=== PATIENT | female | born 1965 | race Caucasian/White ===

== ENCOUNTER 2016-07-26 09:20 | Outpatient (RCR) | payer BC ==
--- OUTSIDE RECORDS SUMMARY | 2016-07-19 09:12 | XMS REPORT | Continuity of Care Document ---
Author Author [facility] Organization [facility] Address Unknown Phone Unavailable Care Team Providers Care Hat Band Attacher Name Role Phone Whitney Tavares PCP [phone] Source Comments Some departments are not documenting in the electronic medical record. If you do not see the information that you expected, contact Release of Information in the Health Information Management department at [phone] for further assistance in locating additional records.[facility] Active Allergies and Adverse Reactions Allergen Noted Date Severity Reactions Comments Hydrocodone 08/19/2011 HIVES, ITCHING Pcn 08/19/2011 HIVES Current Medications Prescription Sig. Disp. Refills Start End Date Status Date amphetamine-dextroampheta Take 30 mg by mouth twice Active mine XR(+) (ADDERALL XR) daily. 30 mg capsule lamoTRIgine (LAMICTAL) Take 200 mg by mouth Active 200 mg tablet twice daily. ERGOCALCIFEROL (VITAMIN Take 300 mg by mouth Active D2) (VITAMIN D PO) daily. oxyCODONE (ROXICODONE) 5 Take 1-3 Tabs by mouth 120 Tab 0 08/24/19 Active mg tablet every 3 hours as needed 12 for Pain. oxyCODONE SR (OXYCONTIN) Take 1 Tab by mouth twice 30 Tab 0 08/24/19 Active 10 mg tablet daily. 12 docusate (COLACE) 100 mg Take 1 Cap by mouth twice 40 Cap 1 08/24/19 Active capsule daily as needed for 12 Constipation. Active Problems Not on file Social History Tobacco Use Types Packs/Day Years Used Date Never Smoker Smokeless Tobacco: Never Used Alcohol Use Drinks/Week oz/Week Comments Yes 3 Shots of 1.8 liquor Last Filed Vital Signs Vital Sign Reading Time Taken Blood Pressure 103/64 08/24/2011 12:08 PM FRAMING MILL OPERATOR HELPER Pulse 97 08/24/2011 12:08 PM FRAMING MILL OPERATOR HELPER Temperature 37.1 C (98.7 F) 08/24/2011 12:08 PM FRAMING MILL OPERATOR HELPER Respiratory Rate - - Height 1.651 m (5' 5") 08/19/2011 1:01 PM FRAMING MILL OPERATOR HELPER Weight 62.143 kg (137 lb) 08/19/2011 1:01 PM FRAMING MILL OPERATOR HELPER Body Mass Index 22.8 08/19/2011 1:01 PM FRAMING MILL OPERATOR HELPER Oxygen Saturation 99% 08/24/2011 12:08 PM FRAMING MILL OPERATOR HELPER Plan of Care Health Maintenance Due Date Last Done Comments Physical (Comprehensive) 1972 Exam Pertussis Vaccine 1976 Tetanus Vaccine 1982 Cervical Cancer Screening 1986 Breast Cancer Screening 2005 Colorectal Cancer 2015 Screening Influenza Vaccine 02/26/2016 Results from Last 3 Months Not on file
--- OUTSIDE RECORDS SUMMARY | 2016-07-19 10:53 | XMS REPORT | Continuity of Care Document ---
Author Author [facility] Organization [facility] Address Unknown Phone Unavailable Care Team Providers Care Tar Chaser Name Role Phone Whitney Tavares PCP [phone] Source Comments Some departments are not documenting in the electronic medical record. If you do not see the information that you expected, contact Release of Information in the Health Information Management department at [phone] for further assistance in locating additional records.[facility] Active Allergies and Adverse Reactions Allergen Noted [...] Taken Blood Pressure 103/64 08/24/2011 12:08 PM FREIGHT SEPARATOR Pulse 97 08/24/2011 12:08 PM FREIGHT SEPARATOR Temperature 37.1 C (98.7 F) 08/24/2011 12:08 PM FREIGHT SEPARATOR Respiratory Rate - - Height 1.651 m (5' 5") 08/19/2011 1:01 PM FREIGHT SEPARATOR Weight 62.143 kg (137 lb) 08/19/2011 1:01 PM FREIGHT SEPARATOR Body Mass Index 22.8 08/19/2011 1:01 PM FREIGHT SEPARATOR Oxygen Saturation 99% 08/24/2011 12:08 PM FREIGHT SEPARATOR Plan of Care Health Maintenance Due Date Last Done Comments Physical (Comprehensive) 1972 Exam Pertussis Vaccine 1976 Tetanus Vaccine 1982 Cervical Cancer Screening 1986 Breast Cancer Screening 2005 Colorectal Cancer 2015 Screening Influenza Vaccine 02/26/2016 Results from Last 3 Months Not on file
[2016-07-20 07:52] LABS: URINE VOLUME REF RANDOM ML
[2016-07-23 07:48] LABS: 5 HIAA SEROTONIN URINE MG/L 4.9 MG/L; 5HIAA CREATININE 49 MG/DL
[2016-07-23 07:49] LABS: 5 HIAA SEROTONIN URINE RATIO 10 mg/gCR (0-14); 5 HIAA URINE INTERPRETATION SEE FOOTNOTE
[~2016-07-26 09:20] MED LIST: AMPH30TA2 PO; ASPI1TAB PO; CALC-823 PO; CEPH500C PO; CHOL10003 PO; CYAN100021 PO; ENXP40I.4 SQ; ESZO3TAB3 PO; HYDR-229 PO; HYDR1TAB PO; LAMO200T2 PO; LEVO75TA6 PO; LIRA0.6P3; NYST1000 PO; ONDA4TAB8 SL; OXC10TCR PO; OXYC-12 PO; OXYC-197 PO; PRAM1TAB3 PO; VITAMIN B12 IM
== END 2016-10-17 | disposition home or self-care (01) ==
LOC: LAB 09:20
PROVIDERS: ATTEND Nurse Practitioner Family
DX: K58.9 Irritable bowel syndrome, unspecified (principal); R50.9 Fever, unspecified; Z79.899 Other long term (current) drug therapy
CPT/HCPCS: 82274; 83497; 87045; 87046; 87177; 87449

== ENCOUNTER 2017-03-05 14:39 | Emergency (ER) | payer BC ==
[~2017-03-05] VITALS: Ht 165.1 cm; Wt 59.0 kg
--- OUTSIDE RECORDS SUMMARY | 2017-03-05 14:54 | XMS REPORT | Clinical Summary ---
Author Author [facility] Organization [facility] Address Unknown Phone Unavailable Care Team Providers Care Line Ordering Clinician Name Role Phone PCP Unavailable Source Comments Some departments are not documenting in the electronic medical record. If you do not see the information that you expected, contact Release of Information in the Health Information Management department at [phone] for further assistance in locating additional records.[facility] Allergies Active Allergy Reactions Severity Noted Date Comments Hydrocodone HIVES, ITCHING 08/19/2011 Penicillins HIVES 08/19/2011 Current Medications Prescription Sig. Disp. Refills Start [...] Comments Yes 3 Shots of 1.8 liquor Sex Assigned at Date Recorded Not on file Last Filed Vital Signs Vital Sign Reading Time Taken Blood Pressure 103/64 08/24/2011 12:08 PM SHOE CLERK Pulse 97 08/24/2011 12:08 PM SHOE CLERK Temperature 37.1 C (98.7 F) 08/24/2011 12:08 PM SHOE CLERK Respiratory Rate - - Oxygen Saturation 99% 08/24/2011 12:08 PM SHOE CLERK Inhaled Oxygen - - Concentration Weight 62.1 kg (137 lb) 08/19/2011 1:01 PM SHOE CLERK Height 165.1 cm (5' 5") 08/19/2011 1:01 PM SHOE CLERK Body Mass Index 22.8 08/19/2011 1:01 PM SHOE CLERK Plan of Treatment Health Maintenance Due Date Last Done Comments HEPATITIS C SCREENING 1965 PHYSICAL (COMPREHENSIVE) 1972 EXAM PERTUSSIS VACCINE 1976 TETANUS VACCINE 1982 CERVICAL CANCER SCREENING 1995 BREAST CANCER SCREENING 2005 COLORECTAL CANCER 2015 SCREENING INFLUENZA VACCINE 02/25/2017 Results Not on filefrom Last 3 Months
--- OUTSIDE RECORDS SUMMARY | 2017-03-05 14:55 | XMS REPORT | Clinical Summary ---
Author Author User, [employer] Organization [facility] [place] Address Unknown Phone Unavailable Allergies, Adverse Reactions, Alerts Allergy Name Reaction Description Start Date Severity Status Provider HYDROCODONE Developed hives and swelling Moderate Active Whitney Tavares PENICILLIN Critical Active Whitney Tavares Conditions or Problems Problem Name Problem Code Onset Date Status Entry Date Provider Comment Standard Description Annotate ANEMIA, VITAMIN B12 DEFICIENCY NEC 281.1 Resolved Whitney Tavares Other vitamin B12 deficiency anemia ANEMIA NOS 285.9 Refinement Whitney Tavares Anemia, unspecified ANEMIA, IRON DEFICIENCY NEC 280.8 Active Whitney Tavares Other specified iron deficiency anemias HYPOTHYROIDISM, PRIMARY 244.9 Active Whitney Tavares Unspecified hypothyroidism HEALTH SCREENING V70.0 Resolved Whitney Tavares Routine general medical examination at a health care facility OSTEOPENIA 733.90 Resolved Whitney Tavaers Disorder of bone and cartilage, unspecified SYNCOPE 780.2 Resolved Whitney Tavares Syncope and collapse SHOULDER PAIN 719.41 Resolved Whitney Tavares Pain in joint involving shoulder region KNEE PAIN, RIGHT 719.46 Resolved Whitney Tavares Pain in joint involving lower leg PALPITATIONS, OCCASIONAL 785.1 Resolved Whitney Tavares Palpitations PREMATURE VENTRICULAR CONTRACTIONS, FREQUENT 427.69 Resolved Whitney Tavares Other premature beats SYMPTOM, SHORTNESS OF BREATH 786.05 Resolved Whitney Tavares Shortness of breath DERMATITIS, CONTACT, NOS 692.9 Resolved Whitney Tavares Contact dermatitis and other eczema, unspecified cause URINARY FREQUENCY 788.41 Resolved Whitney Tavares Urinary frequency THROMBOCYTOPENIA 287.5 Active Whtiney Tavares Thrombocytopenia, unspecified ANEMIA 285.9 Active Whitney Tavares Anemia , unspecified DEEP VENOUS THROMBOPHLEBITIS, HX OF V12.52 Resolved Whitney Tavares Personal history of thrombophlebitis LIVER FUNCTION TESTS, ABNORMAL 794.8 Active Whitney Tavares Nonspecific abnormal results of function study of liver FOOT PAIN, LEFT 729.5 Resolved Whitney Tavares Pain in limb VITAMIN B12 DEFICIENCY 266.2 Active Whitney Tavares Other B-complex deficiencies UNSPECIFIED VITAMIN D DEFICIENCY 268.9 Active Whitney Tavares Unspecified vitamin D deficiency HEALTH SCREENING V70.0 Resolved Whitney Tavares Routine general medical examination at a health care facility HEALTH SCREENING V70.0 Active Whitney Tavares Routine general medical examination at a health care facility EDEMA LEG 782.3 Active Whitney Tavares Edema Medication List Medication Instructions Start Date Stop Date Generic Name NDC Status Provider Patient Instruction TRANSDERM-SCOP 1.5 MG PT72 1 patch behind ear and change every 3 days SCOPOLAMINE BASE 08717368092 No Longer Active Whitney Tavares LASIX 20 MG TAB 1 PO daily prn swelling FUROSEMIDE 26719032234 Active Whitney Tavares CIPRO 500 MG TAB 1 PO BID for 7 days CIPROFLOXACIN HCL 99375793106 No Longer Active Whitneymariam Tavares CYANOCOBALAMIN 1000 MCG/ML SOLN Inject 1 cc weekly CYANOCOBALAMIN 09765401880 Active Mabel Adame LUNESTA 3 MG TABS 1 po at HS prn ESZOPICLONE 92569200884 No Longer Active Whitney Dodie Tavares CYANOCOBALAMIN 1000 MCG/ML SOLN 1cc injection once a month 02/22 CYANOCOBALAMIN 10165121525 No Longer Active Whitneymariam Tavares LORTAB 5 5-500 MG TABS 1 to 2 PO Q6hrs prn ACETAMINOPHEN- HYDROCODONE 15219134606 No Longer Active Whitney Tavares BD INSULIN SYRINGE MICROFINE 28G X 1/2" 0.3 ML MISC INSULIN SYRINGE-NEEDLE U-100 46776099897 No Longer Active Whitneymariam Tavares CALTRATE 600 PLUS-VIT D 600-200 MG-IU TABS 1 PO QD CALCIUM-VITAMIN D 29007193224 No Longer Active Whitney Tavares VITAMIN D (ERGOCALCIFEROL) 34116 UNIT CAPS 1 PO Weekly ERGOCALCIFEROL 28746741802 Active Mabel Adame TRANSDERM-SCOP 1.5 MG PT72 1 patch behind ear and change every 3 days SCOPOLAMINE BASE 07747210961 No Longer Active Angle Bridges LOVENOX 40 MG/0.4ML SOLN 1 INJECTION SQ DAILY ENOXAPARIN SODIUM 17292217880 No Longer Active Whitney Tavares OXYCONTIN 20 MG AZ53H-ODP 1 PO Q12 hrs OXYCODONE HCL 48897504300 No Longer Active Whitneymariam Tavares OXYCODONE HCL 20 MG TABS 1 PO Q 4 HRS PRN OXYCODONE HCL 35298781295 No Longer Active Whitneymariam Tavares ZOFRAN ODT 8 MG TBDP 1 PO Q6hrs prn nausea ONDANSETRON 60423711614 No Longer Active Whitney Tavares VALTREX 1 GM TABS 1 po BID for 3 days at onset of cold sore VALACYCLOVIR HCL 98219853308 Active Whitney Tavares VITAMIN D 1000 UNIT TABS 3 PO Daily CHOLECALCIFEROL 28786198455 No Longer Active Whitney Tavares PYRIDIUM 200 MG TAB 1 PO TID prn urinary urgency PHENAZOPYRIDINE HCL 99494122908 No Longer Active Felix Wheeler LEVAQUIN 500 MG TAB 1 PO QD LEVOFLOXACIN 37437015709 No Longer Active Felix Wheeler KENALOG 0.1 % CREA apply to affected areas BID TRIAMCINOLONE ACETONIDE 54367238526 No Longer Active Whitney Tavares FOLIC ACID 1 MG TAB 1 po daily FOLIC ACID 97740246655 Active Whitney Tavares SYNTHROID 150 MCG TABS 1 po daily LEVOTHYROXINE SODIUM 78810242016 No Longer Active Whitney Tavares ZOVIRAX 5 % CREA apply to affected area TID ACYCLOVIR 43280311157 No Longer Active Whitney Tavares VIACTIV 500-100-40 CHEW 1 PO BID CALCIUM-VITAMIN D- VITAMIN K 34549351357 No Longer Active Whitney Tavares MIRAPEX 1 MG TABS take 2 tabs po at HS PRAMIPEXOLE DIHYDROCHLORIDE 60378704581 Active Mabel Adame Immunizations Vaccine Administration Date Value Standard Description Influenza vaccine given done influenza virus vaccine, unspecified formulation Influenza vaccine given Done influenza virus vaccine, unspecified formulation Vital Signs Date Name Value Unit Range Description blood pressure, diastolic - 8462-4 70 mm[Hg] BP lauren blood pressure, systolic - 8480-6 122 mm[Hg] BP sys pulse rate E&M - 8867-4 80 /min Heart rate respiratory rate E&M - 9279-1 14 /min Resp rate temperature E&M 98.5 [degF] Body temperature weight E&M - 3141-9 143 [lb_av] Weight Measured blood pressure, diastolic - 8462-4 64 mm[Hg] BP lauren blood pressure, systolic - 8480-6 110 mm[Hg] BP sys pulse rate E&M - 8867-4 72 /min Heart rate respiratory rate E&M - 9279-1 14 /min Resp rate weight E&M - 3141-9 151 [lb_av] Weight Measured blood pressure, diastolic - 8462-4 76 mm[Hg] BP lauren blood pressure, systolic - 8480-6 108 mm[Hg] BP sys pulse rate E&M - 8867-4 94 /min Heart rate respiratory rate E&M - 9279-1 14 /min Resp rate temperature E&M 98.3 [degF] Body temperature Diagnostic Results Date Name Value Unit Range Description Clinical Lists Update: CBC,CMP,FLP,Ferritin,TSH,Free T4,ESR,HgA1c - Chemistry Estimated Glomerular Filtration Rate (calc) 72 mL/min/1.73m2 albumin, serum 4.1 g/dL cholesterol/HDL ratio, serum, percent 1.8 anion gap, serum 9 sodium, serum 137 mmol/L triglyceride, serum, fasting 107 mg/dL bilirubin, serum, total 0.8 mg/dL triiodothyronine (T3), serum 3.82 ng/dL alanine aminotransferase (SGPT), serum 20 U/L aspartate aminotransferase (SGOT), serum 19 U/L protein, total, serum 6.2 g/dL potassium, serum 3.8 mmol/L LDL cholesterol, serum 47 mg/dL thyroid stimulating hormone, serum 1.87 u[iU]/mL hemoglobin A1C, blood, as % of total hemoglobin 4.8 % HDL cholesterol, serum 83.0 mg/dL thyroxine, serum, free 0.94 ng/dL ferritin, serum 61.9 ng/mL creatinine, serum 0.9 mg/dL carbon dioxide, venous blood 25.0 mmol/L cholesterol, serum 151 mg/dL chloride, serum 107 mmol/L calcium, serum 8.9 mg/dL urea nitrogen, blood 11 mg/dL alkaline phosphatase, serum 72 U/L glucose, plasma fasting 85 mg/dL Clinical Lists Update: CBC,CMP,FLP,Ferritin,TSH,Free T4,ESR,HgA1c - Hematology red blood cell distribution width 13.1 % mean corpuscular volume, RBC 97 fL leukocyte count, blood 4.4 10*3/mm3 erythrocyte (RBC) count 4.39 10*6/mm3 platelet count 100 10*3/mm3 hemoglobin, blood 13.4 g/dL hematocrit, blood 43 % erythrocyte sedimentation rate 2 mm/h Clinical Lists Update: CBC,CMP,FLP,TSH,FREE T4,HGA1C,FERRITIN - Chemistry Estimated Glomerular Filtration Rate (calc) 67 mL/min/1.73m2 glucose, plasma fasting 95 mg/dL albumin, serum 4.0 g/dL alkaline phosphatase, serum 77 U/L urea nitrogen, blood 16 mg/dL calcium, serum 8.8 mg/dL chloride, serum 109 mmol/L cholesterol, serum 166 mg/dL cholesterol/HDL ratio, serum, percent 1.8 anion gap, serum 8 sodium, serum 139 mmol/L triglyceride, serum, fasting 75 mg/dL bilirubin, serum, total 0.6 mg/dL alanine aminotransferase (SGPT), serum 37 U/L aspartate aminotransferase (SGOT), serum 39 U/L protein, total, serum 5.7 g/dL potassium, serum 3.9 mmol/L LDL cholesterol, serum 60 mg/dL thyroid stimulating hormone, serum 1.89 u[iU]/mL hemoglobin A1C, blood, as % of total hemoglobin 5.2 % HDL cholesterol, serum 91.0 mg/dL thyroxine, serum, free 0.81 ng/dL ferritin, serum 5.5 ng/mL creatinine, serum 0.9 mg/dL carbon dioxide, venous blood 26.0 mmol/L Clinical Lists Update: CBC,CMP,FLP,TSH,FREE T4,HGA1C,FERRITIN - Hematology red blood cell distribution width 13.1 % hemoglobin, blood 11.8 g/dL platelet count 160 10*3/mm3 erythrocyte (RBC) count 4.14 10*6/mm3 leukocyte count, blood 4.1 10*3/mm3 mean corpuscular volume, RBC 89 fL hematocrit, blood 36.8 % Encounters Code Encounter Date Provider Facility CPT-85688 Ofc Vst, Est Level III 18:11:54 CDT Whitney Tavares DO FACP CPT-79040 Ofc Vst, Est Level IV 16:37:15 CDT Whitney Tavares DO, FACP CPT-57932 Ofc Vst, Est Level IV 15:33:50 ADVISER SALES Whitney Tavares DO FACP CPT-99277 Ofc Vst, Est Level IV 15:37:29 CDT Whitney Sanchez Tavares, DO, FACP CPT-30492 Ofc Vst, Est Level III 15:16:42 CDT Whitney Sanchez Tavares, DO, FACP CPT-09103 Ofc Vst, Est Level IV 11:37:49 ADVISER SALES Whitneymariam Sanchez Tavares, DO, FACP CPT-60732 Ofc Vst, Est Level IV 10:55:13 ADVISER SALES Whitney Sanchez Tavares, DO, FACP CPT-77103 Ofc Vst, Est Level IV 16:34:19 ADVISER SALES Whitney Sanchez Tavares, DO, FACP CPT-93806 Ofc Vst, Est Level IV 10:04:39 ADVISER SALES Whitney Sanchez Tavares, DO, FACP CPT-79136 Ofc Vst, Est Level V 10:10:01 CDT Whitneymariam Sanhcez Tavares, DO, FACP CPT-55744 Ofc Vst, Est Level IV 09:43:16 CDT Whitney Sanchez Tavares, DO, FACP CPT-90846 Ofc Vst, Est Level IV 09:44:13 CDT Whitneymariam Sanchez Tavares, DO, FACP CPT-67736 Ofc Vst, Est Level IV 12:10:47 ADVISER SALES Whitney Sanchez Tavares, DO, FACP CPT-62583 Ofc Vst, Est Level III 12:09:46 ADVISER SALES Whitney Olson S Tavares, DO, FACP CPT-60134 Ofc Vst, Est Level V 16:08:56 CDT Whitneymariam Sanchez Tavares, DO, FACP CPT-59046 Ofc Vst, Est Level IV 16:30:03 CDT Whitney Tavares [facility] [place] CPT-02669 Ofc Vst, Est Level IV 16:35:57 CDT Whitney Tavares [facility] [place] CPT-17435 Ofc Vst, Est Level IV 10:52:07 ADVISER SALES Whitney Tavares [facility] [place] Procedures Code Procedure Name Date Entry Date Standard Description CPT-43552 Preventive, Est, (40-64) 10:14:47 ADVISER SALES CPT-33766 Preventive, Est, (40-64) 17:08:50 CDT CPT-45164 Injection 10:10:01 CDT CPT-J3420 Vitamin b12 injection 10:10:01 CDT CPT-72169 EKG w/ Interpretation 09:44:13 CDT CPT-59887 EKG w/ Interpretation 16:08:56 CDT CPT-40790 Handling of specimen from office to lab 20:45:08 CDT CPT-86276 Preventive New, (40-64) 15:55:03 CDT
--- OUTSIDE RECORDS SUMMARY | 2017-03-05 14:56 | XMS REPORT | Clinical Summary ---
Author Author User, Q-Sensei Organization [facility] Address Unknown Phone Unavailable Allergies, Adverse Reactions, [...] health care facility OSTEOPENIA 733.90 Resolved Whitney Tavares Disorder of bone and cartilage, unspecified SYNCOPE [...] Whitney Tavares Urinary frequency THROMBOCYTOPENIA 287.5 Active Whitney Tavares Thrombocytopenia, unspecified ANEMIA 285.9 Active Whitney [...] medical examination at a health care facility Medication List Medication Instructions Start Date Stop Date Generic Name NDC Status Provider Patient Instruction CIPRO 500 MG TAB 1 PO BID for 7 days CIPROFLOXACIN HCL 56860837251 Active Whitney Tavares CYANOCOBALAMIN 1000 MCG/ML SOLN Inject 1 cc weekly CYANOCOBALAMIN 64866801110 Active Mabel Adame LUNESTA 3 MG TABS 1 po at HS prn ESZOPICLONE 38363273108 No Longer Active Whitney Tavares CYANOCOBALAMIN 1000 MCG/ML SOLN 1cc injection once a month 02/22 CYANOCOBALAMIN 80677769662 No Longer Active Whitney Dodei Tavares LORTAB 5 5-500 MG TABS 1 to 2 PO Q6hrs prn ACETAMINOPHEN- HYDROCODONE 56806804517 No Longer Active Whitney Dodie Tavares BD INSULIN SYRINGE MICROFINE 28G X 1/2" 0.3 ML MISC INSULIN SYRINGE-NEEDLE U-100 47196963429 No Longer Active Whitneymariam Tavares CALTRATE 600 PLUS-VIT D 600-200 MG-IU TABS 1 PO QD CALCIUM-VITAMIN D 88948196007 No Longer Active Whitneymariam Tavares VITAMIN D (ERGOCALCIFEROL) 93978 UNIT CAPS 1 PO Weekly ERGOCALCIFEROL 63767116334 Active Mabel Adame TRANSDERM-SCOP 1.5 MG PT72 1 patch behind ear and change every 3 days SCOPOLAMINE BASE 97710165206 No Longer Active Angle Cyrus LOVENOX 40 MG/0.4ML SOLN 1 INJECTION SQ DAILY ENOXAPARIN SODIUM 27021215011 No Longer Active Whitneymariam Tavares OXYCONTIN 20 MG [id number] 1 PO Q12 hrs OXYCODONE HCL 48876938004 No Longer Active Whitney Dodie Tavares OXYCODONE HCL 20 MG TABS 1 PO Q 4 HRS PRN OXYCODONE HCL 96737890480 No Longer Active Whitney Dodie Tavares ZOFRAN ODT 8 MG TBDP 1 PO Q6hrs prn nausea ONDANSETRON 47260761362 No Longer Active Whitney Dodie Tavares VALTREX 1 GM TABS 1 po BID for 3 days at onset of cold sore VALACYCLOVIR HCL 66993820505 Active Whitney Dodie Tavares VITAMIN D 1000 UNIT TABS 3 PO Daily CHOLECALCIFEROL 97601564356 No Longer Active Whitney Tavares PYRIDIUM 200 MG TAB 1 PO TID prn urinary urgency PHENAZOPYRIDINE HCL 98070477485 No Longer Active Felix Wheeler LEVAQUIN 500 MG TAB 1 PO QD LEVOFLOXACIN 88256941790 No Longer Active Felix Wheeler KENALOG 0.1 % CREA apply to affected areas BID TRIAMCINOLONE ACETONIDE 55025943744 No Longer Active Whitney Tavares FOLIC ACID 1 MG TAB 1 po daily FOLIC ACID 93971797796 Active Whitney Tavares SYNTHROID 150 MCG TABS 1 po daily LEVOTHYROXINE SODIUM 38151727249 No Longer Active Whitney Tavares ZOVIRAX 5 % CREA apply to affected area TID ACYCLOVIR 30877739572 No Longer Active Whitney Tavares VIACTIV 500-100-40 CHEW 1 PO BID CALCIUM-VITAMIN D- VITAMIN K 20005108017 No Longer Active Whitney Tavares MIRAPEX 1 MG TABS take 2 tabs po at HS PRAMIPEXOLE DIHYDROCHLORIDE 76130825590 Active Mabel Adame Immunizations Vaccine Administration Date Value Standard Description Influenza vaccine given done influenza virus vaccine, unspecified formulation Influenza vaccine given Done influenza virus vaccine, unspecified formulation Vital Signs Date Name Value Unit Range Description blood pressure, diastolic - 8462-4 64 mm[Hg] [...] Estimated Glomerular Filtration Rate (calc) 72 mL/min/1.73m2 glucose, plasma fasting 85 mg/dL cholesterol/HDL ratio, serum, percent 1.8 anion [...] 11 mg/dL alkaline phosphatase, serum 72 U/L albumin, serum 4.1 g/dL Clinical Lists Update: CBC,CMP,FLP,Ferritin,TSH,Free T4,ESR,HgA1c - Hematology erythrocyte (RBC) count 4.39 10*6/mm3 platelet count 100 10*3/mm3 leukocyte count, blood 4.4 10*3/mm3 hemoglobin, blood 13.4 g/dL mean corpuscular volume, RBC 97 fL hematocrit, blood 43 % red blood cell distribution width 13.1 % erythrocyte sedimentation rate 2 mm/h Clinical Lists Update: CBC,CMP,FLP,TSH,FREE T4,HGA1C,FERRITIN - Chemistry protein, total, serum 5.7 g/dL potassium, serum 3.9 mmol/L LDL cholesterol, serum 60 mg/dL thyroid stimulating hormone, serum 1.89 u[iU]/mL hemoglobin A1C, blood, as % of total hemoglobin 5.2 % HDL cholesterol, serum 91.0 mg/dL thyroxine, serum, free 0.81 ng/dL ferritin, serum 5.5 ng/mL creatinine, serum 0.9 mg/dL carbon dioxide, venous blood 26.0 mmol/L cholesterol, serum 166 mg/dL chloride, serum 109 mmol/L calcium, serum 8.8 mg/dL urea nitrogen, blood 16 mg/dL alkaline phosphatase, serum 77 U/L albumin, serum 4.0 g/dL aspartate aminotransferase (SGOT), serum 39 U/L alanine aminotransferase (SGPT), serum 37 U/L bilirubin, serum, total 0.6 mg/dL triglyceride, serum, fasting 75 mg/dL sodium, serum 139 mmol/L anion gap, serum 8 cholesterol/HDL ratio, serum, percent 1.8 Estimated Glomerular Filtration Rate (calc) 67 mL/min/1.73m2 glucose, plasma fasting 95 mg/dL Clinical Lists Update: CBC,CMP,FLP,TSH,FREE T4,HGA1C,FERRITIN - Hematology leukocyte count, blood 4.1 10*3/mm3 platelet count 160 10*3/mm3 mean corpuscular volume, RBC 89 fL hemoglobin, blood 11.8 g/dL red blood cell distribution width 13.1 % hematocrit, blood 36.8 % erythrocyte (RBC) count 4.14 10*6/mm3 Encounters Code Encounter Date Provider Facility CPT-56848 Ofc Vst, Est Level IV 16:37:15 CDT Whitney Tavares, DO, FACP CPT-27594 Ofc Vst, Est Level IV 15:33:50 LIFE ASSURANCE REPRESENTATIVE Whitney Tavares DO, FACP CPT-92009 Ofc Vst, Est Level IV 15:37:29 CDT Whitney Tavares, DO, FACP CPT-79709 Ofc Vst, Est Level III 15:16:42 CDT Whitney Tavares, DO, FACP CPT-89311 Ofc Vst, Est Level IV 11:37:49 LIFE ASSURANCE REPRESENTATIVE Whitney Tavares, DO, FACP CPT-57113 Ofc Vst, Est Level IV 10:55:13 LIFE ASSURANCE REPRESENTATIVE Whitney Tavares, DO, FACP CPT-92859 Ofc Vst, Est Level IV 16:34:19 LIFE ASSURANCE REPRESENTATIVE Whitney Tavares, DO, FACP CPT-44944 Ofc Vst, Est Level IV 10:04:39 LIFE ASSURANCE REPRESENTATIVE Whitney Tavares, DO, FACP CPT-68499 Ofc Vst, Est Level V 10:10:01 CDT Whitney Sanchez Chaitanya, DO, FACP CPT-92110 Ofc Vst, Est Level IV 09:43:16 CDT Whitney Sanchez Chaitanya, DO, FACP CPT-55991 Ofc Vst, Est Level IV 09:44:13 CDT Whitney Sanchez Chaitanya, DO, FACP CPT-72254 Ofc Vst, Est Level IV 12:10:47 LIFE ASSURANCE REPRESENTATIVE Whitney Sanchez Chaitanya, DO, FACP CPT-83087 Ofc Vst, Est Level III 12:09:46 LIFE ASSURANCE REPRESENTATIVE Whitney Akbarner Whitney Laura Chaitanya, DO, FACP CPT-95900 Ofc Vst, Est Level V 16:08:56 CDT Whitney Sanchez Chaitanya, DO, FACP CPT-71033 Ofc Vst, Est Level IV 16:30:03 CDT Whitneymariam Tavares [facility] CPT-55223 Ofc Vst, Est Level IV 16:35:57 CDT Whitneymariam Akbarner [facility] CPT-81884 Ofc Vst, Est Level IV 10:52:07 LIFE ASSURANCE REPRESENTATIVE Whitneymariam Akbarner [facility] Procedures Code Procedure Name Date Entry Date Standard Description CPT-82820 Preventive, Est, (40-64) 10:14:47 LIFE ASSURANCE REPRESENTATIVE CPT-58860 Preventive, Est, (40-64) 17:08:50 CDT CPT-64957 Injection 10:10:01 CDT CPT-J3420 Vitamin b12 injection 10:10:01 CDT CPT-62987 EKG w/ Interpretation 09:44:13 CDT CPT-33967 EKG w/ Interpretation 16:08:56 CDT CPT-78483 Handling of specimen from office to lab 20:45:08 CDT CPT-72649 Alessandro, Thad, (40-64) 15:55:03 CDT
--- OUTSIDE RECORDS SUMMARY | 2017-03-05 14:56 | XMS REPORT | Clinical Summary ---
Author Author User, Phizzbo Organization [facility] Address Unknown Phone Unavailable Allergies, Adverse Reactions, [...] PO BID for 7 days CIPROFLOXACIN HCL 96065891576 Active Whitney Tavares CYANOCOBALAMIN 1000 MCG/ML SOLN Inject 1 cc weekly CYANOCOBALAMIN 90664930999 Active Mabel Adame LUNESTA 3 MG TABS 1 po at HS prn ESZOPICLONE 57417383162 No Longer Active Whitney Tavares CYANOCOBALAMIN 1000 MCG/ML SOLN 1cc injection once a month 02/22 CYANOCOBALAMIN 47733294157 No Longer Active Whitney Dodie Tavares LORTAB 5 5-500 MG TABS 1 to 2 PO Q6hrs prn ACETAMINOPHEN- HYDROCODONE 79612976596 No Longer Active Whitney Dodie Tavares BD INSULIN SYRINGE MICROFINE 28G X 1/2" 0.3 ML MISC INSULIN SYRINGE-NEEDLE U-100 55368441699 No Longer Active Whitney Dodie Tavares CALTRATE 600 PLUS-VIT D 600-200 MG-IU TABS 1 PO QD CALCIUM-VITAMIN D 41871748521 No Longer Active Whitney Dodie Tavares VITAMIN D (ERGOCALCIFEROL) 74025 UNIT CAPS 1 PO Weekly ERGOCALCIFEROL 88936308906 Active Mabel Adame TRANSDERM-SCOP 1.5 MG PT72 1 patch behind ear and change every 3 days SCOPOLAMINE BASE 83531177560 No Longer Active Angle Cyrus LOVENOX 40 MG/0.4ML SOLN 1 INJECTION SQ DAILY ENOXAPARIN SODIUM 75995610412 No Longer Active Whitney Dodie Tavares OXYCONTIN 20 MG [id number] 1 PO Q12 hrs OXYCODONE HCL 73060717257 No Longer Active Whitney Dodie Tavares OXYCODONE HCL 20 MG TABS 1 PO Q 4 HRS PRN OXYCODONE HCL 81675555398 No Longer Active Whitney Dodie Tavares ZOFRAN ODT 8 MG TBDP 1 PO Q6hrs prn nausea ONDANSETRON 03021664554 No Longer Active Whitney Dodie Tavares VALTREX 1 GM TABS 1 po BID for 3 days at onset of cold sore VALACYCLOVIR HCL 74849436141 Active Whitney Dodie Tavares VITAMIN D 1000 UNIT TABS 3 PO Daily CHOLECALCIFEROL 36647942293 No Longer Active Whitney Dodie Tavares PYRIDIUM 200 MG TAB 1 PO TID prn urinary urgency PHENAZOPYRIDINE HCL 66346365371 No Longer Active Felix Wheeler LEVAQUIN 500 MG TAB 1 PO QD LEVOFLOXACIN 28849628659 No Longer Active Felix Wheeler KENALOG 0.1 % CREA apply to affected areas BID TRIAMCINOLONE ACETONIDE 19993155960 No Longer Active Whitney Tavares FOLIC ACID 1 MG TAB 1 po daily FOLIC ACID 34313507652 Active Whitney Tavares SYNTHROID 150 MCG TABS 1 po daily LEVOTHYROXINE SODIUM 01811596851 No Longer Active Whitney Tavares ZOVIRAX 5 % CREA apply to affected area TID ACYCLOVIR 64406832270 No Longer Active Whitney Tavares VIACTIV 500-100-40 CHEW 1 PO BID CALCIUM-VITAMIN D- VITAMIN K 94070076180 No Longer Active Whitney Tavares MIRAPEX 1 MG TABS take 2 tabs po at HS PRAMIPEXOLE DIHYDROCHLORIDE 64407687512 Active Mabel Adame Immunizations Vaccine Administration Date [...] 10*6/mm3 Encounters Code Encounter Date Provider Facility CPT-09463 Ofc Vst, Est Level IV 16:37:15 CDT Whitney Tavares, DO, FACP CPT-80861 Ofc Vst, Est Level IV 15:33:50 [employer] Whitney Tavares, DO, FACP CPT-07680 Ofc Vst, Est Level IV 15:37:29 CDT Whitneymariam Tavares, DO, FACP CPT-10548 Ofc Vst, Est Level III 15:16:42 CDT Whitney Tavares, DO, FACP CPT-82165 Ofc Vst, Est Level IV 11:37:49 [employer] Whitney Tavares, DO, FACP CPT-96283 Ofc Vst, Est Level IV 10:55:13 [employer] Whitney Tavares, DO, FACP CPT-17723 Ofc Vst, Est Level IV 16:34:19 [employer] Whitney Tavares, DO, FACP CPT-57290 Ofc Vst, Est Level IV 10:04:39 [employer] Whitney Tavares, DO, FACP CPT-38283 Ofc Vst, Est Level V 10:10:01 CDT Whitneymariam Tavares, DO, FACP CPT-39399 Ofc Vst, Est Level IV 09:43:16 CDT Whitney Sanchez Chaitanya, DO, FACP CPT-87929 Ofc Vst, Est Level IV 09:44:13 CDT Whitney Sanchez Chaitanya, DO, FACP CPT-34641 Ofc Vst, Est Level IV 12:10:47 [employer] Whitney Sanchez Chaitanya, DO, FACP CPT-69710 Ofc Vst, Est Level III 12:09:46 [employer] Whitney Stoll Tavares Whitneymariam Tavares, DO, FACP CPT-87199 Ofc Vst, Est Level V 16:08:56 CDT Whitney Akbarner Whitney Laura Chaitanya DO, FACP CPT-46540 Ofc Vst, Est Level IV 16:30:03 CDT Whitneymariam Akbarner [facility] CPT-33192 Ofc Vst, Est Level IV 16:35:57 CDT Whitneymariam Stoll Tavares [facility] CPT-33173 Ofc Vst, Est Level IV 10:52:07 [employer] Whitney Akbarner [facility] Procedures Code Procedure Name Date Entry Date Standard Description CPT-53775 Preventive, Est, (40-64) 10:14:47 [employer]ATH[employer] CPT-23168 Preventive, Est, (40-64) 17:08:50 CDT CPT-11261 Injection 10:10:01 CDT CPT-J3420 Vitamin b12 injection 10:10:01 CDT CPT-41234 EKG w/ Interpretation 09:44:13 CDT CPT-91248 EKG w/ Interpretation 16:08:56 CDT CPT-82138 Handling of specimen from office to lab 20:45:08 CDT CPT-38839 Preventive, New, (40-64) 15:55:03 CDT
--- OUTSIDE RECORDS SUMMARY | 2017-03-05 14:57 | XMS REPORT | Clinical Summary ---
Author Author User, Kormeli Organization [facility] [place] Address Unknown Phone Unavailable Allergies, Adverse Reactions, [...] and change every 3 days SCOPOLAMINE BASE 70472273038 No Longer Active Whitney Tavares LASIX 20 MG TAB 1 PO daily prn swelling FUROSEMIDE 06759971258 Active Whitney Tavares CIPRO 500 MG TAB 1 PO BID for 7 days CIPROFLOXACIN HCL 48395785159 No Longer Active Whitneymariam Tavares CYANOCOBALAMIN 1000 MCG/ML SOLN Inject 1 cc weekly CYANOCOBALAMIN 94206603504 Active Mabel Adame LUNESTA 3 MG TABS 1 po at HS prn ESZOPICLONE 58839156771 No Longer Active Whitney Dodie Tavares CYANOCOBALAMIN 1000 MCG/ML SOLN 1cc injection once a month 02/22 CYANOCOBALAMIN 21531433471 No Longer Active Whitney Dodie Tavares LORTAB 5 5-500 MG TABS 1 to 2 PO Q6hrs prn ACETAMINOPHEN- HYDROCODONE 49677104693 No Longer Active Whitneymariam Tavares BD INSULIN SYRINGE MICROFINE 28G X 1/2" 0.3 ML MISC INSULIN SYRINGE-NEEDLE U-100 04250153128 No Longer Active Whitneymariam Tavares CALTRATE 600 PLUS-VIT D 600-200 MG-IU TABS 1 PO QD CALCIUM-VITAMIN D 00139670638 No Longer Active Whitneymariam Tavares VITAMIN D (ERGOCALCIFEROL) 39379 UNIT CAPS 1 PO Weekly ERGOCALCIFEROL 25757109207 Active Mabel Adame TRANSDERM-SCOP 1.5 MG PT72 1 patch behind ear and change every 3 days SCOPOLAMINE BASE 45479762700 No Longer Active Angle Bridges LOVENOX 40 MG/0.4ML SOLN 1 INJECTION SQ DAILY ENOXAPARIN SODIUM 80888296925 No Longer Active Whitneymariam Tavares OXYCONTIN 20 MG ZX87Q-DTC 1 PO Q12 hrs OXYCODONE HCL 87125755890 No Longer Active Whitney Dodie Tavares OXYCODONE HCL 20 MG TABS 1 PO Q 4 HRS PRN OXYCODONE HCL 75006998932 No Longer Active Whitneymariam Tavares ZOFRAN ODT 8 MG TBDP 1 PO Q6hrs prn nausea ONDANSETRON 79440499587 No Longer Active Whitney Tavares VALTREX 1 GM TABS 1 po BID for 3 days at onset of cold sore VALACYCLOVIR HCL 59449110383 Active Whitney Tavares VITAMIN D 1000 UNIT TABS 3 PO Daily CHOLECALCIFEROL 73169547240 No Longer Active Whitneymariam Tavares PYRIDIUM 200 MG TAB 1 PO TID prn urinary urgency PHENAZOPYRIDINE HCL 46769396256 No Longer Active Felix Wheeler LEVAQUIN 500 MG TAB 1 PO QD LEVOFLOXACIN 66200711248 No Longer Active Felix Wheeler KENALOG 0.1 % CREA apply to affected areas BID TRIAMCINOLONE ACETONIDE 15759212818 No Longer Active Whitney Tavares FOLIC ACID 1 MG TAB 1 po daily FOLIC ACID 97618509232 Active Whitney Tavares SYNTHROID 150 MCG TABS 1 po daily LEVOTHYROXINE SODIUM 22979133800 No Longer Active Whitney Tavares ZOVIRAX 5 % CREA apply to affected area TID ACYCLOVIR 26698920067 No Longer Active Whitney Tavares VIACTIV 500-100-40 CHEW 1 PO BID CALCIUM-VITAMIN D- VITAMIN K 35533580013 No Longer Active Whitney Tavares MIRAPEX 1 MG TABS take 2 tabs po at HS PRAMIPEXOLE DIHYDROCHLORIDE 02433908977 Active Mabel Adame Immunizations Vaccine Administration Date [...] % Encounters Code Encounter Date Provider Facility CPT-44357 Ofc Vst, Est Level III 18:11:54 CDT Whitney Tavares DO, FACP CPT-77218 Ofc Vst, Est Level IV 16:37:15 CDT Whitney Tavares DO, FACP CPT-96190 Ofc Vst, Est Level IV 15:33:50 [employer]EX [employer] MACHINE OPERATOR Whitney Tavares DO, FACP CPT-99824 Ofc Vst, Est Level IV 15:37:29 CDT Whitney Dodie Sanchez Tavares, DO, FACP CPT-34846 Ofc Vst, Est Level III 15:16:42 CDT Whitney Dodie Sanchez Tavares, DO, FACP CPT-72736 Ofc Vst, Est Level IV 11:37:49 [employer]EX THREAD MACHINE OPERATOR Whitney Dodie Sanchez Tavares, DO, FACP CPT-21980 Ofc Vst, Est Level IV 10:55:13 LATEX THREAD MACHINE OPERATOR Whitney Dodie Olson S Tavares, DO, FACP CPT-95376 Ofc Vst, Est Level IV 16:34:19 LATEX THREAD MACHINE OPERATOR Whitney Olson S Tavares, DO, FACP CPT-89576 Ofc Vst, Est Level IV 10:04:39 LATEX THREAD MACHINE OPERATOR Whitney Dodie Sanchez Tavares, DO, FACP CPT-91624 Ofc Vst, Est Level V 10:10:01 CDT Whitney Dodie Sanchez Tavares, DO, FACP CPT-38721 Ofc Vst, Est Level IV 09:43:16 CDT Whitney Dodie Sancehz Tavares, DO, FACP CPT-40680 Ofc Vst, Est Level IV 09:44:13 CDT Whitney Dodie Sanchez Tavares, DO, FACP CPT-57605 Ofc Vst, Est Level IV 12:10:47 LATEX THREAD MACHINE OPERATOR Whitney Dodie Sanchez Tavares, DO, FACP CPT-24127 Ofc Vst, Est Level III 12:09:46 LATEX THREAD MACHINE OPERATOR Whitney Dodie Olson S Tavares, DO, FACP CPT-54678 Ofc Vst, Est Level V 16:08:56 CDT Whitney Dodie Sanchez Chaitanya, DO, FACP CPT-80333 Ofc Vst, Est Level IV 16:30:03 CDT Whitney Tavares [facility] CPT-99795 Ofc Vst, Est Level IV 16:35:57 CDT Whitney Tavares [facility] CPT-56110 Ofc Vst, Est Level IV 10:52:07 LATEX THREAD MACHINE OPERATOR Whitney Tavares [facility] Procedures Code Procedure Name Date Entry Date Standard Description CPT-34707 Preventive, Est, (40-64) 10:14:47 LATEX THREAD MACHINE OPERATOR CPT-44272 Preventive, Est, (40-64) 17:08:50 CDT CPT-99076 Injection 10:10:01 CDT CPT-J3420 Vitamin b12 injection 10:10:01 CDT CPT-13138 EKG w/ Interpretation 09:44:13 CDT CPT-15010 EKG w/ Interpretation 16:08:56 CDT CPT-93427 Handling of specimen from office to lab 20:45:08 CDT CPT-75371 Alessandro, New, (40-64) 15:55:03 CDT
--- NOTE | 2017-03-05 15:40 | ED Head Injury ---
General Chief Complaint: Head/Cervical Problems Stated Complaint: HEAD PAIN/INJ Nursing Triage Note: Pt was on the sidelines of a football game and hit by a football player and knocked to the ground. C/o headache and nausea. Had dry heaves. Denies difficulty with vision. Ecchymosis noted to right upper eyelid. Source: patient, spouse Exam Limitations: no limitations History of Present Illness Time seen by provider: 14:58 Initial Comments 51-year-old female patient presents to the emergency department complains of a headache and nausea after being hit on the side lines by a football player. Patient does note right periorbital ecchymosis. Denies loss of consciousness, but does complain of being dazed initially after the incident. Has been reports patient has been "out of it" since the injury. Patient states her arms and legs "feel like jello." Occurred: yesterday (yesterday evening.) Location: frontal Method of Injury: direct blow, fell Loss of Consciousness: dazed Allergies and Home Medications Allergies Coded Allergies: Penicillins (Unverified Allergy, Severe, SOA, TONGUE SWELLING, HIVES, 12/09) acetaminophen (Verified Allergy, Mild, 12/10/15) hydrocodone bit (Verified Allergy, Mild, 12/10/15) "ITCHING" Home Medications Calcium Carbonate 500 Mg Tablet, 1,000 MG PO DAILY, (Reported) Cholecalciferol (Vitamin D3) 1,000 Unit Tablet, 1,000 UNIT PO DAILY, (Reported) Levothyroxine Sodium 75 Mcg Tablet, 75 MCG PO DAILY, #30 Ref 3 Prescribed by: CALLI LEMUS on 12/10/15 1141 Liraglutide 0.6 Mg/0.1 Ml Pen.injctr, #27 (Reported) Ondansetron 4 Mg Tab.rapdis, 4 MG SL Q4H, #10 Prescribed by: KATHARINA SCHROEDER on 03/16/16 1537 Pramipexole Di-Hcl 1 Mg Tablet, 2 MG PO HS, (Reported) Tramadol HCl 50 Mg Tablet, 50 MG PO Q4H PRN for pain, #20 Ref 0 Prescribed by: FELIPA THOMPSON on 03/05/17 1627 [Vitamin B12] , 1 ML IM EVERY TUESDAY, (Reported) Past Visdokr-Wiulmg-Qaodsr Hx Patient Social History Alcohol Use: Denies Use Recreational Drug Use: No Smoking Status: Never a Smoker Recent Foreign Travel: No Contact w/Someone Who Travel: No Recent Infectious Disease Expo: No Recent Hopitalizations: Yes (3 C-SECTIONS) Immunizations Up To Date Tetanus Booster (TDap): Less than 5yrs PED Vaccines UTD: No Date of Pneumonia Vaccine: Aug 26, 2011 Date of Influenza Vaccine: Feb 25, 2015 Surgeries History of Surgeries: Yes (C/S X3, LEFT FOOT FX, UTERINE ABLATION, BREAST REDUCTION, HERNIA SX) Surgeries: Abdominal, Breast, Section, Gallbladder, Orthopedic, Thyroidectomy Respiratory History of Respiratory Disorde: No Currently Using CPAP: No Currently Using BIPAP: No Cardiovascular History of Cardiac Disorders: No Neurological History of Neurological Disord: No Reproductive System Hx Reproductive Disorders: No Sexually Transmitted Disease: No HIV/AIDS: No Female Reproductive Disorders: Denies Gastrointestinal History of Gastrointestinal Di: No Musculoskeletal History of Musculoskeletal Dis: Yes (OSTEOPENIA) Endocrine History of Endocrine Disorders: Yes (THYROID NODULES) HEENT Loss of Vision: Bilateral Hearing Impairment: Denies Cancer History of Cancer: No Psychosocial History of Psychiatric Problem: No Integumentary History of Skin or Integumenta: No Blood Transfusions History of Blood Disorders: Yes (HX OF BILATERAL DVT AFTER GALL BLADDER SURGERY APPROX 2002) Adverse Reaction to a Blood Tr: No (N/A) Family Medical History Significant Family History: Heart Disease, COPD, Other Conditions/Hx Family Medial History: Patient reports no known family medical history. Physical Exam Vital Signs Vital Sign - Last 12Hours 03/05/17 14:53 Temp 97.3 Pulse 70 Resp 16 B/P (MAP) 124/80 Pulse Ox 98 O2 Delivery Room Air Capillary Refill : Less Than 3 Seconds Progress/Results/Core Measures Results/Orders My Orders Orders - FELIPA THOMPSON Ct Head/Face/Cervical Wo (03/05/17 15:08) Vital Signs/I&O Vital Sign - Last 12Hours 03/05/17 14:53 Temp 97.3 Pulse 70 Resp 16 B/P (MAP) 124/80 Pulse Ox 98 O2 Delivery Room Air Blood Pressure Mean: 95 Diagnostic Imaging Diagonstic Imaging: CT Plain Films/CT/US/NM/MRI: facial bones, c-spine, head Comments FINDINGS: CT head and maxillofacial: No intracranial hemorrhage, mass effect, hydrocephalus or extra-axial fluid collections. No CT evidence of acute infarction. Osseous structures are intact. No fractures. The paranasal sinuses and mastoids are clear. CT cervical spine: Straightening of the normal cervical lordosis. Alignment is otherwise unremarkable. Vertebral body heights are maintained. No fractures. No evidence of high-grade spinal canal narrowing on this non-intrathecal contrast examination. Thyroidectomy. The visualized paravertebral soft tissues are otherwise unremarkable. IMPRESSION: No acute intracranial or cervical spine CT findings. No maxillofacial fractures. Dictated on workstation # [id number] Reviewed: Reviewed by Me (radiology report reviewed by me) Departure Impression Impression: Primary Impression: Minor head injury without loss of consciousness Additional Impression: Contusion of right eyelid and periocular area, initial encounter Disposition: HOME, SELF-CARE Condition: Improved Departure-Patient Inst. Decision time for Depature: 16:25 Referrals: YAMILKA HONG DO (PCP/Family) Primary Care Physician Patient Instructions: Eye Contusion (DC), Head Injury Observation (DC), Minor Head Injury (DC) Add. Discharge Instructions: All discharge instructions reviewed with patient and/or family. Voiced understanding. Medications as directed. Motrin 600 mg by mouth every 6-8 hours as needed for pain. Ice pack for 20 minute intervals as needed for pain or swelling. No heavy lifting, twisting, pushing, pulling, twisting, bending, climbing, or activities which may result and head injury until released by your family practitioner. No mentally taxing activities until released by your family practitioner. Follow-up with your family practitioner for recheck as an outpatient within the next 3-5 days. Call for appointment time Tuesday. Return to the emergency department for worsened pain, dizziness, changes in vision, slurred speech, facial drooping, numbness, weakness, shortness of air, chest pain, seizure, vomiting, or any other concerns. Scripts Orphenadrine Citrate (Orphenadrine Citrate) 100 Mg Tablet.er 100 MG PO BID Y for SPASMS, #10 TAB 0 Refills Prov: FELIPA THOMPSON 03/05/17 Tramadol HCl (Tramadol HCl) 50 Mg Tablet 50 MG PO Q4H Y for pain, #20 TAB 0 Refills Prov: FELIPA THOMPSON 03/05/17 Work/School Note: Work Release Form Date Seen in the Emergency Department: Mar 05, 2017 Restrictions: Need Release from Doctor FELIPA THOMPSON Mar 05, 2017 15:40
--- NOTE | 2017-03-05 16:13 | Diagnostic Imaging Report ---
PROCEDURE: CT head, face, and cervical spine without contrast. TECHNIQUE: Multiple contiguous axial images were obtained through the head, neck, and facial bones without the use of intravenous contrast. Sagittal and coronal reformations through the cervical spine and facial bones were also performed. INDICATION: Head injury. Headache. Nausea. COMPARISON: None. FINDINGS: CT head and maxillofacial: No intracranial hemorrhage, mass effect, hydrocephalus or extra-axial fluid collections. No CT evidence of acute infarction. Osseous structures are intact. No fractures. The paranasal sinuses and mastoids are clear. CT cervical spine: Straightening of the normal cervical lordosis. Alignment is otherwise unremarkable. Vertebral body heights are maintained. No fractures. No evidence of high-grade spinal canal narrowing on this non-intrathecal contrast examination. Thyroidectomy. The visualized paravertebral soft tissues are otherwise unremarkable. IMPRESSION: No acute intracranial or cervical spine CT findings. No maxillofacial fractures. Dictated by: Dictated on workstation # [id number]
[2017-03-05] MEDS ORDERED: TRAM50TA2 PO (16:27)
[2017-03-05] MEDS ORDERED: ORPH100T PO (16:27)
[2017-03-05] MEDS ORDERED: CYCLOBENZAPRINE 10 MG (FLEXERIL) TAB PO STA (16:37)
[2017-03-05 17:03] VITALS: BP 120/76
== END 2017-03-05 17:03 | disposition home or self-care (01) ==
LOC: EDUNIT# 14:39 → ER 14:41
DX: S09.90XA Unspecified injury of head, initial encounter (principal); H54.0 Blindness, both eyes; Z87.59 Personal history of other complications of pregnancy, childbirth and the puerperium; Z90.89 Acquired absence of other organs; Z86.718 Personal history of other venous thrombosis and embolism; Z82.49 Family history of ischemic heart disease and other diseases of the circulatory system; W51.XXXA Accidental striking against or bumped into by another person, initial encounter
CPT/HCPCS: 70450; 70486; 72125; 99282

== ENCOUNTER 2017-05-09 10:20 | Day surgery (SDC) | payer BC ==
[~2017-05-09] VITALS: Ht 165.1 cm; Wt 61.5 kg
[2017-05-09 10:20] VITALS: BP 121/78
[~2017-05-09 10:20] MED LIST changes: +AMPH20TA2 PO; +DEXT20TA8 PO; +LEVO137T2 PO; +LIOT5TAB3 PO; +ORPH100T PO; +PRAM1TAB2 PO; +TRAM50TA2 PO; +TRIA1CAP4 PO; +VITA1TAB17 PO
[2017-05-09] MEDS ORDERED: BUPIVACAINE 0.25% 30 ML (SENSORCAINE) VIAL ONE (10:27)
[2017-05-09] MEDS ORDERED: DEXAMETHASONE 10 MG/ML (DECADRON) 1 ML VIAL ONE (10:27)
[2017-05-09] MEDS ORDERED: LIDOCAINE 1% INJ 20 ML (XYLOCAINE) VIAL ONE (10:27)
--- OUTSIDE RECORDS SUMMARY | 2017-05-09 10:31 | XMS REPORT | Clinical Summary ---
Author Author [facility] Organization [facility] Address Unknown Phone Unavailable Care Team Providers Care Microbiological Analyst Name Role Phone PCP Unavailable Source Comments Some departments are not documenting in the electronic medical record. If you do not see the information that you expected, contact Release of Information in the Health Information Management department at [phone] for further assistance in locating additional records.[facility] Allergies Active Allergy Reactions Severity Noted Date [...] Taken Blood Pressure 103/64 08/24/2011 12:08 PM CONSUMER STUDIES PROFESSOR Pulse 97 08/24/2011 12:08 PM CONSUMER STUDIES PROFESSOR Temperature 37.1 C (98.7 F) 08/24/2011 12:08 PM CONSUMER STUDIES PROFESSOR Respiratory Rate - - Oxygen Saturation 99% 08/24/2011 12:08 PM CONSUMER STUDIES PROFESSOR Inhaled Oxygen - - Concentration Weight 62.1 kg (137 lb) 08/19/2011 1:01 PM CONSUMER STUDIES PROFESSOR Height 165.1 cm (5' 5") 08/19/2011 1:01 PM CONSUMER STUDIES PROFESSOR Body Mass Index 22.8 08/19/2011 1:01 PM CONSUMER STUDIES PROFESSOR Plan of Treatment Health Maintenance Due Date Last Done Comments HEPATITIS C SCREENING 1965 PHYSICAL (COMPREHENSIVE) 1972 EXAM PERTUSSIS VACCINE 1976 TETANUS VACCINE 1982 CERVICAL CANCER SCREENING 1995 BREAST CANCER SCREENING 2005 COLORECTAL CANCER 2015 SCREENING INFLUENZA VACCINE 01/25/2017 Results Not on filefrom Last 3 Months
[2017-05-09] MEDS ORDERED: MIDAZOLAM 2 MG/2 ML (VERSED) VIAL ONE (10:42)
[2017-05-09] MEDS ORDERED: ONDANSETRON 4 MG/2 ML (SDV) Z0FRAN ONE (10:42)
[2017-05-09] MEDS ORDERED: ROCURONIUM 50 MG/5 ML (ZEMURON) VIAL IV ONE (10:42)
[2017-05-09] MEDS ORDERED: fentaNYL INJECTION 100 MCG/2 ML AMP ONE (10:42)
[2017-05-09] MEDS ORDERED: proPOfol 200 MG/20 ML (DIPRIVAN) VIAL IV ONE (10:42)
[2017-05-09] MEDS ORDERED: LIDOCAINE JELLY 2% (XYLOCAINE) 5 ML TUBE ONE (10:42)
[2017-05-09] MEDS ORDERED: LIDOCAINE PF 2% 5 ML (XYLOCAINE) VIAL ONE (10:42)
[2017-05-09] MEDS ORDERED: ceFAZolin 1,000 MG (ANCEF) VIAL ONE (10:57)
[2017-05-09] MEDS ORDERED: NS (IVPB) 50 ML ONE (10:58)
--- NOTE | 2017-05-09 11:10 | Progress Note-Pre Operative ---
Pre-Operative Progress Note H&P Reviewed The H&P was reviewed, patient examined and no changes noted. 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
[2017-05-09] MEDS: LACTATED RINGERS 1,000 ML IV PRN ×2 (11:15→11:56)
[2017-05-09] MEDS ORDERED: SEVOFLURANE (ULTANE) 15 ML INHAL SOLN ONE (12:34)
[2017-05-09] MEDS ORDERED: LACTATED RINGERS 1,000 ML IV SCH (12:50)
--- NOTE | 2017-05-09 12:50 | Progress Note-Post Operative ---
Post-Operative Progess Note Surgeon (s)/Loss Prevention And Safety Manager (s) Surgeon IRINA RUSH DPM Loss Prevention And Safety Manager: Same Pre-Operative Diagnosis Hypertrophic 2nd metatarsal, Hammertoes 2, 3, all right foot Post-Operative Diagnosis Same plus Hammertoe to the right 4th digit Procedure & Operative Findings Date of Procedure 05/09/17 Procedure Performed/Findings Reduction of Hammertoe, right 3rd 2nd and 3rd Metatarsal Osteotomies, right Flexor Tendon release, right 2nd and 4th toes Anesthesia Type General Estimated Blood Loss Estimated blood loss (mL): Minimal Specimens/Packing Specimens Removed None IRINA RUSH DPM May 09, 2017 12:50 pm
[2017-05-09] MEDS ORDERED: CEPH500C PO (12:58)
[2017-05-09] MEDS ORDERED: OXYC-197 PO (12:58)
[2017-05-09] MEDS ORDERED: fentaNYL INJECTION 100 MCG/2 ML AMP IVP PRN ×2 (13:00→13:45)
[2017-05-09] MEDS ORDERED: MEPERIDINE (DEMEROL) INJ 50 MG/ML IVP PRN (13:00)
[2017-05-09] MEDS ORDERED: ONDANSETRON 4 MG/2 ML (SDV) Z0FRAN IVP PRN (13:00)
[2017-05-09] MEDS ORDERED: morphine INJ 4 MG/ML 1 ML (VIAL/SYRINGE) IV PRN (13:00)
[2017-05-09] MEDS ORDERED: morphine INJ 10 MG/ML 1ML (SYR OR VIAL) ONE (13:00)
[2017-05-09] MEDS ORDERED: HYDROmorphone (DILAUDID) 2 MG/ML VIAL IVP PRN (13:45)
[2017-05-09] MEDS ORDERED: morphine INJ 10 MG/ML 1ML (SYR OR VIAL) IVP PRN (13:45)
[2017-05-09 13:55] VITALS: BP 112/72
[2017-05-09] MEDS ORDERED: oxyCODONE/APAP 5/325MG (PERCOCET 5) TABLET PO PRN (14:15)
[2017-05-09 14:25] VITALS: BP 106/69
[2017-05-09] MEDS ORDERED: ceFAZolin 1 GM/NS 50 ML IVPB IV ONE ×2 (14:30)
[2017-05-09 15:00] VITALS: BP 108/58
[2017-05-09 16:28] VITALS: BP 108/58
--- NOTE | 2017-05-09 19:18 | Diagnostic Imaging Report ---
EXAMINATION: Two views of the right foot. INDICATION: Postoperative evaluation. FINDINGS: There is fusion of the interphalangeal joints of the second and third toes with K-wires and wire fixation of osteotomy along the proximal phalanx of the great toe which could be old. There are screws through the heads of the second and third metatarsals fixating an osteotomy. There is also evidence of fusion with plate and screws along the tarsometatarsal joint at the base of the first toe with screw across the joint from the base of the first metatarsal into the intermediate cuneiform. There is overall good alignment at the joints. Flattening of the plantar arch is seen, however. IMPRESSION: Postoperative changes as described in good alignment. Dictated by: Dictated on workstation # [id number]
--- NOTE | 2017-05-10 01:01 | OPERATIVE REPORT ---
DATE OF SERVICE: SURGEON: Connie Rush DPM. PREOPERATIVE DIAGNOSES: 1. Hypertrophic second and third metatarsals, right foot. 2. Hammertoes second, third and fourth, right foot. POSTOPERATIVE DIAGNOSES: 1. Hypertrophic second and third metatarsals, right foot. 2. Hammertoes second, third and fourth, right foot. PROCEDURE: 1. Reduction of hammertoe with K-wire fixation, right third digit. 2. Second and third metatarsal osteotomy with screw fixation, right foot. 3. Flexor tendon release, right second and fourth digits. WOUND CLASS: Clean. ANESTHESIA: General. HEMOSTASIS: Pneumatic thigh tourniquet at 250 mmHg. INDICATION: This 52-year-old female presents complaining of a painful right foot. Conservative therapy has met with unsatisfactory results and the patient is agreeable to surgical intervention after risks and complications were discussed at length. No guarantees were extended to the patient and she is willing to proceed. PROCEDURE: The patient was brought back to the operating table, placed in a secure supine position. A general anesthetic was then induced. Appropriate timeout was performed. A pneumatic thigh tourniquet was placed on the right lower extremity over several layers of padding. The right foot was then prepped and draped in a normal sterile manner. The right foot was then elevated, allowed to exsanguinate after which the tourniquet was inflated to 250 mmHg. Attention was then directed to the dorsal aspect of the right first metatarsophalangeal joint where a 2.5 cm longitudinal linear incision was created and deepened down to the deep tissue. Only necessary blood vessels were cauterized as encountered. A longitudinal capsulotomy was performed just medial to the extensor digitorum longus. The tendon was reflected laterally. This exposed the capsular tissue where a transverse tenotomy was performed. The medial and lateral collateral ligaments were released. This exposed the hypertrophic head of the second metatarsal. A Garrett type osteotomy was then performed. The capital fragment was translocated proximally and fixated in its corrected position utilizing a 2.0 snap-off screw of 12 mm of length. Excellent fixation was appreciated at this time. The excess bone to the dorsal aspect of the second metatarsal was reduced with a rongeur and smoothed. Excellent range of motion of the second metatarsophalangeal joint was appreciated at this time. The wound was flushed with copious amounts of normal saline. The distal aspect of the right second toe had a semi-rigid contracture at the distal interphalangeal joint. Utilizing an 11 blade, a stab incision was created at the plantar aspect of the distal interphalangeal joint and the flexor tendon was palpated and released with the tip of the blade. The wound was flushed with copious amounts of normal saline. Good reduction of the digital deformity was appreciated at this time. A 0.054 K-wire was driven from distal to proximal, securing the digit in an appropriate alignment. The excess K-wire was cut and a protective ball placed over the end of the wire. Attention was then directed to the right third toe where a semi-rigid contracture was noted to the digit. An incision was created from the metatarsophalangeal joint to the distal interphalangeal joint with great care to identify and retract all vital neurovascular structures. All necessary blood vessels were cauterized as encountered. The incision was deepened down to the extensor tendon where a Z-slide lengthening was performed. The extensor tendon was reflected proximally and the extensor braxton released. This exposed the metatarsophalangeal joint where a transverse tenotomy as well as release of the medial and lateral collateral ligaments were performed. This demonstrated a long third metatarsal and hypertrophic head, which was modified with a Garrett osteotomy. The capital fragment was translocated proximally and fixated in its corrected position with a 2.0 snap-off screw of 12 mm of length. Excellent bony apposition fixation was appreciated at this time. The excess bone to the dorsal aspect of the third metatarsal head was resected with a rongeur and further contoured and smoothed. Attention was then directed to the proximal interphalangeal joint of the right third toe where a peg-in-hole type arthrodesis was performed. The head of the proximal phalanx was fashioned into a peg with a power sagittal saw and a power bur and a hole was created to the base of the middle phalanx with the power bur. Next, a 0.054 K-wire was driven down the toe securing the digit in a rectus alignment. It was also driven across the metatarsophalangeal joint to secure the digit in appropriate alignment. The excess K-wire at the end of the toe was cut and a protective ball placed over the end of the wire. Deep closure for the 1st and 2nd digits was performed with 3-0 Vicryl, superficial 4-0 Vicryl, skin closure with 4-0 Prolene in a horizontal mattress type stitch. It should be noted that copious amounts of normal saline was used throughout the procedure. Once the third digit was evaluated in its corrected position, it was evident that the right fourth toe was very dorsally prominent and would bother the patient in shoe gear with ambulation, was then decided that a flexor tendon release would be appropriate for this toe as well. An 11 blade was utilized for a stab incision plantar aspect of the proximal interphalangeal joint where a flexor tenotomy was then performed percutaneously. The wound was flushed with copious amounts of normal saline and closure was not performed at this time. A postoperative injection consisted of 12 mL of 0.25% Marcaine injected in a local infusion into the surgical sites. Postoperative dressing consisted of Betadine-soaked Adaptic. The tourniquet was released noting appropriate cap refill time to all digits of the right foot. Sterile 4 x 4, sterile Kerlix, dressing was then secured with a Coban wrap. The patient tolerated the anesthesia, procedure well, was transported from the operating room to the recovery area with vital signs stable and vascular status intact to all digits of the right foot. She is to follow up in my office in 10 days' period of time or sooner if necessary. The patient indicated that she cannot tolerate hydrocodone, but Percocet she has taken successfully in the past without any problems. She also indicated she has a PENICILLIN allergy, but has taken Ancef and Keflex successfully in the past as well. She was given a prescription today for Percocet and Keflex. Job ID: [id number] DocumentID: [id number] Dictated Date: 05/09/2017 13:08:17 Stamp Analyst Date: 05/10/2017 01:00:43 Dictated By: CONNIE RUSH DPM
== END 2017-05-09 16:28 | disposition home or self-care (01) ==
LOC: SDC 10:20
PROVIDERS: ATTEND Podiatrist Foot & Ankle Surgery
DX: M20.41 Other hammer toe(s) (acquired), right foot (principal); M89.372 Hypertrophy of bone, left ankle and foot; Z98.84 Bariatric surgery status; E03.9 Hypothyroidism, unspecified; E53.8 Deficiency of other specified B group vitamins; E55.9 Vitamin D deficiency, unspecified; M85.89 Other specified disorders of bone density and structure, multiple sites; F31.9 Bipolar disorder, unspecified; K90.9 Intestinal malabsorption, unspecified; K58.9 Irritable bowel syndrome, unspecified; G25.81 Restless legs syndrome; R73.03 Prediabetes; Z79.899 Other long term (current) drug therapy
CPT/HCPCS: 73620; 84703

== ENCOUNTER → 2017-05-23 | Outpatient (CLI) | payer BC ==
--- NOTE | 2017-05-23 23:01 | Diagnostic Imaging Report ---
EXAM: Bilateral breast ultrasound. INDICATION: Bilateral breast asymmetries. FINDINGS: In the left breast at the 2 o'clock zone, 5 cm from the nipple, there is an oval hypoechoic lesion with circumscribed margins and mild internal vascularity with color Doppler measuring 1.1 x 0.5 x 1.1 cm. There is slight through transmission. No shadowing. This is questioned to be related to a prominent fat nodule. Another elongated hypoechoic lesion measuring 1 x 0.3 x 0.3 cm is seen in the right breast at 4 o'clock zone with no internal vascularity and elongated appearance. It does probably a normal tissue with its elongated appearance in favor of a mildly complicated duct or normal tissue. It does not have features suspicious of lesion. The retroareolar region and the 4 quadrants of each breast otherwise appear unremarkable. IMPRESSION: Likely benign indeterminate lesion measuring 1.1 cm at the 2 o'clock zone, 5 cm from the nipple in the left breast, could represent a prominent fat lobule. 6 month followup left breast ultrasound is recommended to reevaluate this lesion. BI-RADS 3. ACR BI-RADS Category 3: Probably benign findings. Result letter will be mailed to the patient. Note: At least 10% of breast cancer is not imaged by mammography. Dictated by: Dictated on workstation # [id number]
--- NOTE | 2017-05-23 23:07 | Diagnostic Imaging Report ---
EXAM: Bilateral diagnostic mammogram with tomography evaluation. The current study was also evaluated with a Computer Aided Detection (CAD) system. INDICATION: Bilateral breast asymmetries in the upper left breast and central posterior aspect of the right CC projection. FINDINGS: The upper left breast asymmetry is compressed with no underlying abnormality seen. The asymmetry along the central posterior aspect of the right CC projection is also evaluated with focal compression view with no definite abnormality seen. IMPRESSION: Bilateral breast asymmetries are favored to be related to summation artifact of parenchyma. Ultrasound evaluation pending. BI-RADS 0. ACR BI-RADS Category 0: Incomplete. (Needs additional imaging evaluation). Result letter will be mailed to the patient. Note: At least 10% of breast cancer is not imaged by mammography. Dictated by: Dictated on workstation # [id number]
== END ==
LOC: RAD 09:17
PROVIDERS: ATTEND Nurse Practitioner Family
DX: N64.89 Other specified disorders of breast (principal)
CPT/HCPCS: 77066

== ENCOUNTER → 2017-07-18 | Outpatient (CLI) | payer BC ==
[~2017-07-18] MED LIST changes: +GADOBUTROL 7.5 MMOL/7.5 ML (GADAVIST) VIAL IV ONE
[2017-07-18 09:32] LABS: BUN/CREATININE RATIO 13; CREATININE SERUM 0.78 MG/DL (0.60-1.30); GFR ESTIMATED > 60
--- NOTE | 2017-07-18 10:43 | Diagnostic Imaging Report ---
PROCEDURE: MR imaging of the brain with and without contrast. TECHNIQUE: Multiplanar, multisequence MR imaging of the brain was performed with and without contrast. INDICATION: Headaches and double vision. COMPARISON: No prior studies are available for comparison. FINDINGS: The ventricular size and sulcal pattern are within normal limits. There are numerous foci of T2 and FLAIR signal bilaterally. The majority appear to be subcortical in location. The normal expected flow voids within the carotid siphons are seen. No diffusion restriction is identified. No acute intra-axial or extra-axial hemorrhage is detected. The corpus callosum is unremarkable. The sella and parasellar structures are unremarkable. No abnormal enhancement following contrast administration is identified. IMPRESSION: Numerous, predominantly subcortical white matter foci are identified, much greater than expected for a patient of this age. Pattern is not classic for demyelinating process such as MS. Features may be on the basis of chronic microvascular ischemia. Followup could be performed to confirm stability. Dictated by: Dictated on workstation # [id number]
== END ==
LOC: RAD 08:09
PROVIDERS: ATTEND Nurse Practitioner Family
DX: G43.909 Migraine, unspecified, not intractable, without status migrainosus (principal)
CPT/HCPCS: 36415; 70553; 82565; 84520

== ENCOUNTER 2017-10-19 12:41 | Outpatient (RCR) | payer BC ==
[2017-10-07 13:45] VITALS: BP 128/83
[2017-10-07] MEDS: IRON SUCROSE 200 MG/10 ML (VENOFER) VIAL IV SCH (14:09)
[2017-10-07 14:14] LABS: BASOPHILS % (AUTO) 0 % (0-10); EOSINOPHILS % (AUTO) 1 % (0-10); HEMATOCRIT 38 % (35-52); HEMOGLOBIN 12.2 G/DL (11.5-16.0); LYMPHOCYTES # (AUTO) 1.3 X 10^3 (1.0-4.0); LYMPHOCYTES % (AUTO) 28 % (12-44); MEAN CORPUSCULAR HEMOGLOBIN 27 PG (25-34); MEAN CORPUSCULAR HGB CONC 32 G/DL (32-36); MEAN CORPUSCULAR VOLUME 83 FL (80-99); MEAN PLATELET VOLUME 11.7 FL (7.4-10.4); MONOCYTES # (AUTO) 0.5 X 10^3 (0.0-1.0); MONOCYTES % (AUTO) 10 % (0-12); NEUTROPHILS # (AUTO) 2.8 X 10^3 (1.8-7.8); NEUTROPHILS % (AUTO) 62 % (42-75); PLATELET COUNT 184 10^3/uL (130-400); RED BLOOD COUNT 4.58 10^6/uL (4.35-5.85); RED CELL DISTRIBUTION WIDTH 14.9 % (10.0-14.5); WHITE BLOOD COUNT 4.6 10^3/uL (4.3-11.0)
[2017-10-10 13:35] VITALS: BP 124/70
[2017-10-10] MEDS: IRON SUCROSE 200 MG/10 ML (VENOFER) VIAL IV SCH (13:40)
[2017-10-12 12:40] VITALS: BP 118/70
[2017-10-12] MEDS: IRON SUCROSE 200 MG/10 ML (VENOFER) VIAL IV SCH (12:45)
[2017-10-14 13:38] LABS: HEMOGLOBIN 11.9 G/DL (11.5-16.0); MEAN PLATELET VOLUME 11.5 FL (7.4-10.4); RED BLOOD COUNT 4.47 10^6/uL (4.35-5.85); RED CELL DISTRIBUTION WIDTH 15.7 % (10.0-14.5)
[2017-10-14] MEDS: IRON SUCROSE 200 MG/10 ML (VENOFER) VIAL IV SCH (13:38)
[2017-10-14 14:42] VITALS: BP 121/75
[2017-10-17 13:00] VITALS: BP 124/78
[2017-10-17] MEDS: IRON SUCROSE 200 MG/10 ML (VENOFER) VIAL IV SCH (13:04)
[~2017-10-19] VITALS: Ht 165.1 cm; Wt 61.5 kg
[~2017-10-19 12:41] MED LIST changes: -GADOBUTROL 7.5 MMOL/7.5 ML (GADAVIST) VIAL IV ONE
[2017-10-19 12:50] VITALS: BP 126/82
[2017-10-19] MEDS: IRON SUCROSE 200 MG/10 ML (VENOFER) VIAL IV SCH (12:54)
[2017-10-19 13:08] LABS: BASOPHILS % (AUTO) 0 % (0-10); EOSINOPHILS % (AUTO) 1 % (0-10); HEMATOCRIT 41 % (35-52); HEMOGLOBIN 13.4 G/DL (11.5-16.0); LYMPHOCYTES # (AUTO) 1.4 X 10^3 (1.0-4.0); LYMPHOCYTES % (AUTO) 26 % (12-44); MEAN CORPUSCULAR HEMOGLOBIN 27 PG (25-34); MEAN CORPUSCULAR HGB CONC 33 G/DL (32-36); MEAN CORPUSCULAR VOLUME 82 FL (80-99); MEAN PLATELET VOLUME 11.5 FL (7.4-10.4); MONOCYTES # (AUTO) 0.3 X 10^3 (0.0-1.0); MONOCYTES % (AUTO) 7 % (0-12); NEUTROPHILS # (AUTO) 3.5 X 10^3 (1.8-7.8); NEUTROPHILS % (AUTO) 66 % (42-75); PLATELET COUNT 199 10^3/uL (130-400); RED BLOOD COUNT 4.95 10^6/uL (4.35-5.85); RED CELL DISTRIBUTION WIDTH 16.4 % (10.0-14.5); WHITE BLOOD COUNT 5.2 10^3/uL (4.3-11.0)
== END 2018-01-05 | disposition home or self-care (01) ==
LOC: SDC 12:41
PROVIDERS: ATTEND Nurse Practitioner Family
DX: D64.9 Anemia, unspecified (principal)
CPT/HCPCS: 36415; 82728; 83540; 85025; 85027; 96365

== ENCOUNTER → 2017-11-10 | Outpatient (CLI) | payer BC ==
--- NOTE | 2017-11-10 19:28 | Diagnostic Imaging Report ---
INDICATION: Six-month followup of left breast nodule. Patient also reports palpable lump at the 8 o'clock location. Correlation is made with prior breast ultrasound from 05/23/2017. FINDINGS: Sonographic interrogation of the left breast 2 o'clock location again demonstrates an ovoid, circumscribed hypoechoic echogenicity approximately 5 cm from the nipple measuring 11 mm x 5 mm x 10 mm, stable when compared with prior exam. Minimal internal vascularity is prominent. There appears to be posterior acoustic enhancement. Imaging at the 8 o'clock location was also performed at the area of patient's reported new lump. No sonographic abnormality is seen. No solid or cystic mass is seen. IMPRESSION: 1. Stable circumscribed hypoechoic nodule at the 2 o'clock location of the left breast when compared with exam from 05/23/2017. This again most likely represents a prominent fat lobule versus a benign nodule such as a fibroadenoma. Additional followup in 6 months is recommended to confirm stability. 2. No sonographic abnormality at the 8 o'clock location of the left breast at area of patient's reported palpable abnormality. Continued close clinical and self breast exam is recommended. If this persists, consideration should be given to performance of diagnostic mammography. ACR BI-RADS Category 3: Probably benign findings. Dictated by: Dictated on workstation # [id number]
== END ==
LOC: RAD 09:54
PROVIDERS: ATTEND Internal Medicine
DX: N63.24 Unspecified lump in the left breast, lower inner quadrant (principal); N63.21 Unspecified lump in the left breast, upper outer quadrant
CPT/HCPCS: 76642

== ENCOUNTER 2018-01-23 16:00 | Outpatient (CLI) | payer BC | END 2018-01-23 16:25 | disposition home or self-care (01) | LOC: SLEEP 16:00 | PROVIDERS: ATTEND Nurse Practitioner Family | DX: G47.33 Obstructive sleep apnea (adult) (pediatric) (principal) ==

== ENCOUNTER 2018-03-17 10:47 | Outpatient (RCR) | payer BC ==
[2018-03-09 09:18] LABS: ABSOLUTE RETIC # 43 10e9/L (24-90); BASOPHILS % (AUTO) 0 % (0-10); EOSINOPHILS # (AUTO) 0.1 10^3/uL (0.0-0.3); EOSINOPHILS % (AUTO) 4 % (0-10); HEMATOCRIT 38 % (35-52); LYMPHOCYTES # (AUTO) 1.4 X 10^3 (1.0-4.0); LYMPHOCYTES % (AUTO) 41 % (12-44); MEAN CORPUSCULAR HEMOGLOBIN 30 PG (25-34); MEAN CORPUSCULAR HGB CONC 34 G/DL (32-36); MEAN CORPUSCULAR VOLUME 89 FL (80-99); MONOCYTES # (AUTO) 0.4 X 10^3 (0.0-1.0); MONOCYTES % (AUTO) 12 % (0-12); NEUTROPHILS # (AUTO) 1.5 X 10^3 (1.8-7.8); NEUTROPHILS % (AUTO) 43 % (42-75); PLATELET COUNT 178 10^3/uL (130-400); RED BLOOD COUNT 4.31 10^6/uL (4.35-5.85); RED CELL DISTRIBUTION WIDTH 12.8 % (10.0-14.5); RETICULOCYTE % 0.99 % (0.50-2.40); WHITE BLOOD COUNT 3.4 10^3/uL (4.3-11.0)
[2018-03-09 10:03] LABS: BAND NEUTROPHILS 0 %; BASOPHILS % (MANUAL) 0 %; EOSINOPHILS % (MANUAL) 1 %; LYMPHOCYTES % (MANUAL) 50 %; MONOCYTES % (MANUAL) 9 %; NEUTROPHILS % (MANUAL) 40 %; RBC MORPH NORMAL
[~2018-03-17 10:47] MED LIST changes: -OXYC-197 PO; +OXYC1TAB87 PO
== END 2018-03-26 | disposition home or self-care (01) ==
LOC: ONC 10:47
PROVIDERS: ATTEND Internal Medicine Hematology & Oncology
DX: D80.3 Selective deficiency of immunoglobulin G [IgG] subclasses (principal); D69.6 Thrombocytopenia, unspecified; E89.0 Postprocedural hypothyroidism; Z85.850 Personal history of malignant neoplasm of thyroid; D50.9 Iron deficiency anemia, unspecified; R10.13 Epigastric pain; Z86.718 Personal history of other venous thrombosis and embolism; Z79.899 Other long term (current) drug therapy
CPT/HCPCS: 38221; 85007; 85027; 85045; 99213

== ENCOUNTER → 2018-12-14 | Outpatient (CLI) | payer BC ==
--- NOTE | 2018-12-14 20:39 | Diagnostic Imaging Report ---
INDICATION: Routine screening. Comparison is made with prior mammograms from 05/03/2017 and 06/22/2013. 2-D and 3-D bilateral screening mammography was performed. The current study was also evaluated with a Computer Aided Detection (CAD) system. 3-D tomosynthesis was also performed and reviewed. FINDINGS: Both breasts remain heterogeneously dense, limiting the sensitivity of mammography. The parenchymal pattern is stable. No mass or malignant-appearing microcalcifications are seen. Axillae are unremarkable. IMPRESSION: No mammographic features suspicious for malignancy are identified. ACR BI-RADS Category 1: Negative. Result letter will be mailed to the patient. Note: At least 10% of breast cancer is not imaged by mammography. Dictated by: Dictated on workstation # [id number]
== END ==
LOC: RAD 15:16
PROVIDERS: ATTEND Nurse Practitioner Family
DX: Z12.31 Encounter for screening mammogram for malignant neoplasm of breast (principal)
CPT/HCPCS: 77067

== ENCOUNTER 2019-02-18 02:02 | Emergency (ER) | payer BC ==
[~2019-02-18] VITALS: Ht 165.1 cm; Wt 63.0 kg
[~2019-02-18 02:02] MED LIST changes: +LIOT5TAB PO; -LIOT5TAB3 PO
[2019-02-18] MEDS ORDERED: ORPHENADRINE 60 MG/2 ML (NORFLEX) AMP IM STA (02:37)
[2019-02-18] MEDS ORDERED: KETOROLAC 60 MG/2 ML VIAL IM STA (02:37)
--- NOTE | 2019-02-18 03:11 | ED Back Pain ---
General Chief Complaint: Back Problems Stated Complaint: BACK PAIN Nursing Triage Note: PT TO ED W/ C/O LOWER BACK PAIN ONSET WHEN STANDING FROM SITTING POSITION AT HOME. DENIES INJURY. PT REPORTS PAIN TO LOWER BACK TO LT HIP ET DOWN LT LEG. NO OTHER C/O VOICED Nursing Sepsis Screen: No Definite Risk Source of Information: Patient Exam Limitations: No Limitations (CLAYTON HARRISON) History of Present Illness Date Seen by Provider: Feb 18, 2019 Time Seen by Provider: 02:20 Initial Comments Pt presents with back pain that started 2 weeks ago and has been intermittently worse, but constantly noticeable. It became severe tonight while getting out of a chair. She states she is a busy person and does sit for long periods at work sometimes. She reports having chills recently and some nighttime sweating. She also reports some nausea with no vomiting and some diarrhea over the last few weeks. Timing/Duration: Changing Over Time, Constant, Getting Worse, Intermittent Severity: Severe Pain/Injury Location: Back Radiation: Upper Legs Method of Injury: Unknown Modifying Factors: Worse With Movement; Improves With Pain Medication Associated Symptoms: No numbness in legs/feet, No tingling in legs/feet (CLAYTON HARRISON) Initial Comments Here with low back pain that's been intermittent over the last 2 weeks but worse over the last 12 hours. She was sitting in a chair at a table and stood up and had severe spasms. Reports pain is on the left side and radiates to the left leg down to the knee. She has had back pain like this before but never this bad. Denies bowel or bladder incontinence, numbness between her legs or fever. Timing/Duration: Changing Over Time, Intermittent Severity: Severe Pain/Injury Location: Back Radiation: Upper Legs Method of Injury: Unknown Associated Symptoms: muscle spasms; No fever, No numbness in legs/feet, No tingling in legs/feet; lower back pain; No loss of bladder control, No loss of bowel control (MARIBEL GUZMÁN MD) Allergies and Home Medications Allergies Coded Allergies: Penicillins (Unverified Allergy, Severe, SOA, TONGUE SWELLING, HIVES, 12/10/15) hydrocodone bit (Verified Allergy, Mild, 12/10/15) "ITCHING" Home Medications Cephalexin 500 Mg Capsule, 1 CAP PO TID Prescribed by: IRINA RUSH on 05/09/17 1258 Cholecalciferol (Vitamin D3) 1,000 Unit Tablet, 1,000 UNIT PO DAILY, (Reported) Dextroamphetamine/Amphetamine 20 Mg Tablet, 40 MG PO DAILY, (Reported) Dextroamphetamine/Amphetamine 20 Mg Tablet, 20 MG PO DAILY@1200, (Reported) Levothyroxine Sodium 137 Mcg Tablet, 137 MCG PO DAILY, (Reported) Liothyronine Sodium 5 Mcg Tablet, 10 MCG PO BID@0800,1200, (Reported) take 2 (5mcg) tabs Oxycodone HCl/Acetaminophen 1 Each Tablet, 1 EACH PO Q6H PRN for PAIN-MODERATE TO SEVERE Prescribed by: IRINA RUSH on 05/09/17 1258 Pramipexole Di-HCl 1 Mg Tablet, 2 MG PO HS, (Reported) take 2 (1mg) tabs Triamterene/Hydrochlorothiazid 1 Each Capsule, 1 TAB PO DAILY, (Reported) Vitamin B Complex 1 Each Tablet, 1 EACH PO DAILY, (Reported) Patient Home Medication List Home Medication List Reviewed: Yes (MARIBEL GUZMÁN MD) Review of Systems Constitutional: chills, diaphoresis (Nighttime sweating occasionally over last few months) EENTM: no symptoms reported Respiratory: no symptoms reported Gastrointestinal: No constipation; diarrhea; No vomiting Genitourinary: no symptoms reported Musculoskeletal: back pain, muscle pain Skin: no symptoms reported Psychiatric/Neurological: No Symptoms Reported (CLAYTON HARRISON) Constitutional: see HPI; No fever Respiratory: No cough, No short of breath Gastrointestinal: No nausea, No vomiting Musculoskeletal: back pain, muscle pain Skin: no symptoms reported Psychiatric/Neurological: No Symptoms Reported (MARIBEL GUZMÁN MD) Past Dtmtime-Unupyt-Xzccnr Hx Past Med/Social Hx: Reviewed Nursing Past Med/Soc Hx (MARIBEL GUZMÁN MD) Patient Social History Alcohol Use: Occasionally Uses Recreational Drug Use: No Smoking Status: Never a Smoker Recent Foreign Travel: No Contact w/Someone Who Travel: No Recent Infectious Disease Expo: No Recent Hopitalizations: No Physical Abuse: No Sexual Abuse: No Mistreated: No Fear: No (CLAYTON HARRISON) Immunizations Up To Date Tetanus Booster (TDap): Less than 5yrs PED Vaccines UTD: No Date of Pneumonia Vaccine: Aug 26, 2011 Date of Influenza Vaccine: Feb 25, 2017 (CLAYTON HARRISON) Seasonal Allergies Seasonal Allergies: Yes (MILD) (CLAYTON HARRISON) Past Medical History Surgeries: Yes (C/S X3, LEFT FOOT FX, UTERINE ABLATION, BREAST REDUCTION, HERNIA SX) Abdominal, Breast, Section, Gallbladder, Orthopedic, Thyroidectomy Respiratory: No Currently Using CPAP: No Currently Using BIPAP: No Cardiac: No Neurological: No Reproductive Disorders: No Female Reproductive Disorders: Denies Sexually Transmitted Disease: No HIV/AIDS: No Gastrointestinal: No Musculoskeletal: Yes (OSTEOPENIA) Endocrine: Yes (THYROIDECTOMY) Loss of Vision: Bilateral Hearing Impairment: Denies Cancer: Yes Thyroid Psychosocial: No Integumentary: No Blood Disorders: Yes (HX OF BILATERAL DVT AFTER GALL BLADDER SURGERY APPROX 2002, ANEMIA) Adverse Reaction/Blood Tranf: No (N/A) (CLAYTON HARRISON) Family Medical History Reviewed Nursing Family Hx (MARIBEL GUZMÁN MD) Patient reports no known family medical history. Heart Disease, COPD, Other Conditions/Hx (CLAYTON HARRISON) Physical Exam Vital Signs Vital Signs - First Documented 02/18/19 02:12 Temp 98.8 Pulse 84 Resp 18 B/P (MAP) 136/85 (102) Pulse Ox 97 O2 Delivery Room Air (MARIBEL GUZMÁN MD) Vital Signs Capillary Refill : Less Than 3 Seconds (CLAYTON HARRISON) Height, Weight, BMI Height: 5'5.00" Weight: 139lbs. 8.0oz. [id number]; 22.6 BMI Method:Stated General Appearance: WD/WN, Moderate Distress Neck: Full Range of Motion, Normal Inspection Peripheral Pulses: 2+ Dorsalis Pedis (R), 2+ Left Dors-Pedis (L), 2+ Radial Pulses (R), 2+ Radial Pulses (L) Extremity: No Calf Tenderness, No Pedal Edema Neurologic/Psychiatric: Alert, Oriented x3, Normal Mood/Affect Skin: Normal Color, Warm/Dry (CLAYTON HARRISON) General Appearance: WD/WN, Mild Distress Neck: Full Range of Motion, Normal Inspection, Supple Cardiovascular: Regular Rate, Rhythm, No Murmur Respiratory: Lungs Clear, Normal Breath Sounds Back: Decreased Range of Motion, Muscle Spasm; No Vertebral Tenderness; Other (pain in the area of the left low back around the left hip. Muscle spasm noted.) Neurologic/Psychiatric: Alert, Oriented x3 Skin: Normal Color, Warm/Dry (MARIBEL GUZMÁN MD) Progress/Results/Core Measures Results/Orders My Orders Orders - MARIBEL GUZMÁN MD Ketorolac Injection (Toradol Injection) (02/18/19 02:37) Orphenadrine Injection (Norflex Injectio (02/18/19 02:37) (MARIBEL GUZMÁN MD) Vital Signs/I&O 02/18/19 02:12 Temp 98.8 Pulse 84 Resp 18 B/P (MAP) 136/85 (102) Pulse Ox 97 O2 Delivery Room Air (MARIBEL GUZMÁN MD) Blood Pressure Mean: 102 Progress Progress Note : Time: 02:30 Progress Note Pt seen by me and Dr Guzmán. She appears in moderate distress and pain in back. Upon assessment her left hip is flexed to ease the back pain which correlates with contracture of the iliopsoas muscle likely from sitting for long periods. I performed some OMT counterstrain to the patient at the request of Dr Guzmán in hopes of relaxing the muscle and was able to achieve some relief. I told the patient about some in home stretches/maneuvers that may help with her pain. Dr Guzmán ordered some pain medication. 0315: After the medication and OMT the patient does report feeling less pain. (CLAYTON HARRISON) Progress Note : Progress Note I have seen and evaluated the patient and agree with above except as indicated. I have directed the plan of care. I did work with Clayton to relieve pain through stretching techniques performed by him under my supervision. This did seem to help. Toradol 60 mg IM and Norflex 60 mg IM ordered as well. Monitor patient. 03 41: Patient overall doing much better. Discharged home with return precautions. Patient verbalize understanding instructions and agreement with plan. (MARIBEL GUZMÁN MD) Departure Impression Primary Impression: Lumbar radiculopathy Disposition: 01 HOME, SELF-CARE Condition: Improved Departure-Patient Inst. Decision time for Depature: 03:43 (MARIBEL GUZMÁN MD) Referrals: YAMILKA HONG DO (PCP) Primary Care Physician JAMES HONG, MACK (Family) Primary Care Physician Patient Instructions: Lumbar Muscle Strain (DC), Radiculopathy (DC) Add. Discharge Instructions: All discharge instructions reviewed with patient and/or family. Voiced u nderstanding. Drink plenty of fluids. Use stretching exercises as discussed. You may take ibuprofen 600 mg every 8 hours as needed for pain. You may also take Tylenol/acetaminophen 1000 mg every 8 hours as needed for pain. You may use [id number] Icy Hot with lidocaine patches, Aspercreme with lidocaine patches, Salonpas with lidocaine patches or similar items to area of concern per package directions. Follow-up with your Dr. in a few days for recheck. Return for worse pain, fever, weakness, difficulty with walking or going to the bathroom, numbness between your legs or other concerns as needed. Scripts Prednisone (Prednisone) 20 Mg Tab 40 MG PO DAILY, #8 TAB 0 Refills Prov: MARIBEL GUZMÁN MD 02/18/19 Cyclobenzaprine HCl (Cyclobenzaprine HCl) 10 Mg Tablet 10 MG PO Q8H PRN for SPASMS, #15 TAB 0 Refills Prov: MARIBEL GUZMÁN MD 02/18/19 [facility]ARR[facility] Feb 18, 2019 03:11 MARIBEL GUZMÁN MD Feb 18, 2019 03:41
--- NOTE | 2019-02-18 03:20 | NUR ---
PT REPORTS IMPROVEMENT OF PAIN AT THIS TIME. RATES PAIN AT "6" ON 0-10 SCALE. NO OTHER C/O VOICED
[2019-02-18] MEDS ORDERED: predniSONE 20 MG TAB PO ONE (03:45)
[2019-02-18] MEDS ORDERED: CYCL10TA9 PO (03:45)
[2019-02-18] MEDS ORDERED: PRD20T PO (03:45)
[2019-02-18 03:58] VITALS: BP 104/64
== END 2019-02-18 03:58 | disposition home or self-care (01) ==
LOC: EDUNIT# 02:02 → ER 02:04
DX: M54.16 Radiculopathy, lumbar region (principal); Z88.0 Allergy status to penicillin; Z88.5 Allergy status to narcotic agent; Z98.890 Other specified postprocedural states; Z85.850 Personal history of malignant neoplasm of thyroid; Z86.718 Personal history of other venous thrombosis and embolism
CPT/HCPCS: 99284

== ENCOUNTER 2019-09-20 20:57 | Inpatient (IN) | payer BC ==
[~2019-09-20] VITALS: Ht 165 cm; Wt 72.0 kg
[~2019-09-20 20:57] MED LIST changes: +CYCL10TA9 PO; -LIOT5TAB PO; +LIOT5TAB10 PO; +NALOXONE 2 MG/2 ML (NARCAN) SYR ONE; +PRD20T PO; -TRAM50TA2 PO; +TRM50T PO
--- NOTE | 2019-09-20 20:57 | NUR ---
Timeline note: 2056 - pt taken to ED room 4 from car. Per , he found pt unresponsive on floor at home. C-collar placed on pt upon arrival to ED room by Dr. Santoro. Pt arousable only to painful stimuli. Pulse present, agonal respirations, o2 saturation 88% upon arrival. Pt being provided blow-by oxygen and breaths assisted via BVM. Gag reflex present. 2100 - 0.8mg narcan given IVP per Dr. Santoro order. No change in patient condition. 2102 - 1.2 mg narcan given IVP per Dr. Santoro order. No change in patient condition. 2104 - RT staff and Dr. Santoro at bedside to prepare for intubation 2110 - 20mg etomidate and 50mg succinylcholine given IVP per Dr. Santoro order for RSI. 2114 - Pt intubated by Dr. Santoro with 7.5 ET tube, positive color change, bilat breath sounds present. Pt o2 sats now 100%. 2122 - Pt becoming agitated and thrashing in bed. 4mg versed given IVP per Dr. Santoro verbal order. 2124 - 40mg propofol given IVP by Dr. Santoro for sedation. Propofol drip hung at this time.
[2019-09-20 21:13] LABS: BASOPHILS % (AUTO) 1 % (0-10); EOSINOPHILS # (AUTO) 0.1 10^3/uL (0.0-0.3); EOSINOPHILS % (AUTO) 3 % (0-10); HEMATOCRIT 38 % (35-52); HEMOGLOBIN 12.4 G/DL (11.5-16.0); LYMPHOCYTES # (AUTO) 1.5 X 10^3 (1.0-4.0); LYMPHOCYTES % (AUTO) 44 % (12-44); MEAN CORPUSCULAR HEMOGLOBIN 29 PG (25-34); MEAN CORPUSCULAR HGB CONC 33 G/DL (32-36); MEAN CORPUSCULAR VOLUME 89 FL (80-99); MONOCYTES # (AUTO) 0.3 X 10^3 (0.0-1.0); MONOCYTES % (AUTO) 7 % (0-12); NEUTROPHILS # (AUTO) 1.6 X 10^3 (1.8-7.8); NEUTROPHILS % (AUTO) 46 % (42-75); PLATELET COUNT 143 10^3/uL (130-400); RED CELL DISTRIBUTION WIDTH 13.9 % (10.0-14.5); WHITE BLOOD COUNT 3.5 10^3/uL (4.3-11.0)
[2019-09-20] MEDS ORDERED: NS IV 1000 ML 1,000 ML IV ONE (21:17)
[2019-09-20] MEDS ORDERED: PROPOFOL DRIP (ICU) 100 ML IV ONE (21:17)
[2019-09-20 21:20] LABS: BILIRUBIN,URINE NEGATIVE (NEGATIVE); CLARITY,URINE CLEAR; COLOR,URINE YELLOW; GLUCOSE, URINE (UA) NEGATIVE (NEGATIVE); KETONES,URINE NEGATIVE (NEGATIVE); LEUKOCYTE ESTERASE ,URINE NEGATIVE (NEGATIVE); NITRITE,URINE NEGATIVE (NEGATIVE); PROTEIN,URINE NEGATIVE (NEGATIVE)
[2019-09-20 21:28] LABS: AMPHETAMINE SCREEN, URINE POSITIVE (NEGATIVE); BARBITURATE SCREEN URINE NEGATIVE (NEGATIVE); BENZODIAZEPINES SCREEN URINE NEGATIVE (NEGATIVE); CANNABINOID SCREEN, URINE NEGATIVE (NEGATIVE); COCAINE SCREEN URINE NEGATIVE (NEGATIVE); METHADONE STAT NEGATIVE (NEGATIVE); METHAMPHETAMINE SCREEN URINE S NEGATIVE (NEGATIVE); OPIATE SCREEN URINE NEGATIVE (NEGATIVE); OXYCODONE STAT NEGATIVE (NEGATIVE); PROPOXYPHENE STAT NEGATIVE (NEGATIVE); TRICYCLIC ANTIDEPRESSANTS SCRE NEGATIVE (NEGATIVE)
[2019-09-20 21:30] LABS: BACTERIA,URINE NEGATIVE /HPF
[2019-09-20] MEDS ORDERED: PROPOFOL DRIP (ICU) 100 ML IV SCH (21:30)
[2019-09-20 21:34] LABS: ACETAMINOPHEN < 10 UG/ML (10-30); ALANINE AMINOTRANSFERASE 79 U/L (0-55); ALBUMIN 3.9 GM/DL (3.2-4.5); ALKALINE PHOSPHATASE 98 U/L (40-136); BILIRUBIN,TOTAL 0.4 MG/DL (0.1-1.0); BUN/CREATININE RATIO 11; CALCIUM 8.5 MG/DL (8.5-10.1); CARBON DIOXIDE 23 MMOL/L (21-32); CHLORIDE 112 MMOL/L (98-107); CREATININE SERUM 0.79 MG/DL (0.60-1.30); GFR ESTIMATED > 60; GLUCOSE 95 MG/DL (70-105); MAGNESIUM 2.3 MG/DL (1.6-2.4); POTASSIUM 3.9 MMOL/L (3.6-5.0); SALICYLATE < 5.0 MG/DL (5.0-20.0); SODIUM 145 MMOL/L (135-145); TOTAL PROTEIN 5.9 GM/DL (6.4-8.2)
--- NOTE | 2019-09-20 21:55 | Diagnostic Imaging Report ---
PROCEDURE: CT cervical spine without contrast. TECHNIQUE: Multiple contiguous axial images were obtained through the cervical spine without the use of intravenous contrast. Sagittal and coronal reformations were then performed. Auto Exposure Controls were utilized during the CT exam to meet ALARA standards for radiation dose reduction. INDICATION: Found unresponsive. FINDINGS: Patient is currently intubated. The endotracheal tube is within the trachea. There is also an enteric tube within the esophagus. The distal aspect is not included within the [id number]-gl-[id number] on this exam. Cervical spine alignment appears within normal limits. There are normal relationships at the craniocervical junction. There are normal relationships of the lateral masses of C1 and C2. The facets are normally aligned. There is no facet joint or disc space widening demonstrated. The vertebral body heights appear maintained. No acute cervical spine fracture is evident. There are multilevel degenerative endplate changes which are most advanced at C5-C6 and C6-C7. There is no finding of high-grade central canal stenosis. Lung apices appear clear. The soft tissues of the neck demonstrate no acute process. IMPRESSION: Mild background features of cervical degenerative disc disease. There are no CT findings of an acute cervical spine fracture or traumatic malalignment. There is no evidence to suggest high-grade cervical central canal stenosis. Dictated by: Dictated on workstation # [id number]
[2019-09-20 22:15] LABS: TSH (THYROID ANALYZER) 20.54 UIU/ML (0.35-4.94)
[2019-09-20 22:27] LABS: FREE T4 (FREE THYROXINE) 0.71 NG/DL (0.70-1.48)
--- NOTE | 2019-09-20 22:41 | ED Psychosocial ---
General Chief Complaint: Unresponsive Stated Complaint: PASSED OUT Nursing Triage Note: Pt unresponsive to ED via private vehicle that pulled up in ambulance bay. reports pt had an "upset night". reports pt took "normal"amount of "sleeping pills" tonight. reports leaving room for a time and then found pt on the floor unresponsive. Unknown how pt has been taking Trazadone, however there are an extra 11 pills missing since prescription was filled. C collar placed on pt upon arrival by Dr. Santoro. Responsive to sternal rub with no purposeful movement. Source: family, old records Exam Limitations: no limitations History of Present Illness Date Seen by Provider: Sep 20, 2019 Time Seen by Provider: 20:58 Initial Comments This 54-year-old woman is brought to the emergency room by her after being found unresponsive on the floor. She arrives lying on the back seat of an SUV on a rug. reports she had been upset and pacing around the house. He presumes she took her usual bedtime medications including sleeping pills. He did some chores in the garage and then could not find her when he returned less than 10 minutes later. After searching the house he found her by the front door unresponsive on the floor. Presence of trauma was uncertain. C-collar was applied promptly. Patient has respiratory suppression and is breathing about 5- 10 times per minute with an oxygen saturation difficult to measure but eventually measured at 88 percent. Patient does struggle with depression but has not expressed suicidal ideation or attempts in the past. She takes numerous medications which are brought to the emergency room and a bowl. They are as follows: Trazodone 150 mg twice a day D amphetamine salts 20 mg 1.5 tablet in the morning and at noon Viibryd 40 mg daily Pramipexole 2 mg at bedtime Acyclovir 400 mg 5 times daily Lunesta 2 mg at bedtime Synthroid 100 g daily Allergies and Home Medications Allergies Coded Allergies: Penicillins (Unverified Allergy, Severe, SOA, TONGUE SWELLING, HIVES, 12/10/15) hydrocodone bit (Verified Allergy, Mild, 12/10/15) "ITCHING" Home Medications Cephalexin 500 Mg Capsule, 1 CAP PO TID Prescribed by: IRINA RUSH on 05/09/17 1258 Cholecalciferol (Vitamin D3) 1,000 Unit Tablet, 1,000 UNIT PO DAILY, (Reported) Cyclobenzaprine HCl 10 Mg Tablet, 10 MG PO Q8H PRN for SPASMS Prescribed by: MARIBEL GUZMÁN on 02/18/19 034 Dextroamphetamine/Amphetamine 20 Mg Tablet, 40 MG PO DAILY, (Reported) Dextroamphetamine/Amphetamine 20 Mg Tablet, 20 MG PO DAILY@1200, (Reported) Levothyroxine Sodium 137 Mcg Tablet, 137 MCG PO DAILY, (Reported) Liothyronine Sodium 5 Mcg Tablet, 10 MCG PO BID@0800,1200, (Reported) take 2 (5mcg) tabs Oxycodone HCl/Acetaminophen 1 Each Tablet, 1 EACH PO Q6H PRN for PAIN-MODERATE TO SEVERE Prescribed by: IRINA RUSH on 05/09/17 1258 Pramipexole Di-HCl 1 Mg Tablet, 2 MG PO HS, (Reported) take 2 (1mg) tabs Prednisone 20 Mg Tab, 40 MG PO DAILY Prescribed by: MARIBEL GUZMÁN on 02/18/19344 Triamterene/Hydrochlorothiazid 1 Each Capsule, 1 TAB PO DAILY, (Reported) Vitamin B Complex 1 Each Tablet, 1 EACH PO DAILY, (Reported) Patient Home Medication List Home Medication List Reviewed: Yes Review of Systems Constitutional: see HPI EENTM: no symptoms reported Respiratory: see HPI Cardiovascular: no symptoms reported Gastrointestinal: no symptoms reported Genitourinary: no symptoms reported : No Musculoskeletal: no symptoms reported Skin: no symptoms reported Psychiatric/Neurological: See HPI Past Xbynnrz-Hsarye-Spacqh Hx Past Med/Social Hx: Reviewed Nursing Past Med/Soc Hx Patient Social History Alcohol Use: Denies Use Recreational Drug Use: No Recent Foreign Travel: No Contact w/Someone Who Travel: No Recent Infectious Disease Expo: No Recent Hopitalizations: No Immunizations Up To Date Tetanus Booster (TDap): Less than 5yrs PED Vaccines UTD: No Date of Pneumonia Vaccine: Aug 26, 2011 Date of Influenza Vaccine: Feb 25, 2017 Seasonal Allergies Seasonal Allergies: Yes (MILD) Past Medical History Surgeries: Yes (C/S X3, LEFT FOOT FX, UTERINE ABLATION, BREAST REDUCTION, HERNIA SX) Abdominal, Breast, Section, Gallbladder, Orthopedic, Thyroidectomy Respiratory: No Currently Using CPAP: No Currently Using BIPAP: No Cardiac: No Neurological: No Reproductive Disorders: No Female Reproductive Disorders: Denies Sexually Transmitted Disease: No HIV/AIDS: No Gastrointestinal: No Musculoskeletal: Yes (OSTEOPENIA) Endocrine: Yes (THYROIDECTOMY) Loss of Vision: Bilateral Hearing Impairment: Denies Cancer: Yes Thyroid Psychosocial: Yes Sleep Difficulties, Depression Integumentary: No Blood Disorders: Yes (HX OF BILATERAL DVT AFTER GALL BLADDER SURGERY APPROX 2002, ANEMIA) Adverse Reaction/Blood Tranf: No (N/A) Family Medical History Patient reports no known family medical history. Heart Disease, COPD, Other Conditions/Hx Physical Exam Vital Signs - First Documented 09/20/19 09/21/19 09/21/19 20:57 00:22 00:23 Temp 36.1 Pulse 72 Resp 8 B/P (MAP) 103/62 (76) Pulse Ox 88 O2 Delivery Room Air O2 Flow Rate 60.00 FiO2 75 Capillary Refill : Greater Than 3 Seconds Height, Weight, BMI Height: 5'5.00" Weight: 139lbs. 8.0oz. 63.725570sy; 25.00 BMI Method:Stated General Appearance: WD/WN, no apparent distress, other HEENT: normal ENT inspection (unresponsive), pharynx normal, other (pupils constricted) Neck: normal inspection Respiratory: lungs clear, normal breath sounds, no respiratory distress, no accessory muscle use, other (decreased respiratory rate and drive) Cardiovascular: regular rate, rhythm, no edema, no murmur Gastrointestinal: normal bowel sounds, soft; No distended Extremities: normal inspection, no pedal edema Neurologic/Psychiatric: other (unresponsive. Did have gag reflex with oral airway.) Skin: normal color, warm/dry, other (subtle bruising on the lower left breast) Procedures/Interventions Date of ETT Placement: Sep 20, 2019 Time of ETT Placement: 2114 Tube Size: 7.50 Medications: Etomidate, Succinylcholine Positive End Tide CO2: Yes Intubation Complications: no complications Post Intubation Xray: Yes ET tube in good position Intubation performed by Dr. Santoro. Small airway limited use of the Mac blade. The [employer] videoscope was then used with success. Progress/Results/Core Measures Results/Orders Lab Results Laboratory Tests Test 09/20/19 01:20 09/20/19 21:00 09/20/19 21:05 09/21/19 01:00 Range/Units White Blood Count 3.5 L 3.8 L 4.3-11.0 10^3/uL Red Blood Count 4.27 L 4.05 L 4.35-5.85 10^6/uL Hemoglobin 12.4 12.1 11.5-16.0 G/DL Hematocrit 38 37 35-52 % Mean Corpuscular Volume 89 92 80-99 FL Mean Corpuscular Hemoglobin 29 30 25-34 PG Mean Corpuscular Hemoglobin Concent 33 33 32-36 G/DL Red Cell Distribution Width 13.9 14.0 10.0-14.5 % Platelet Count 143 29 *L 130-400 10^3/uL Mean Platelet Volume 11.0 H 11.6 H 7.4-10.4 FL Neutrophils (%) (Auto) 46 64 42-75 % Lymphocytes (%) (Auto) 44 30 12-44 % Monocytes (%) (Auto) 7 4 0-12 % Eosinophils (%) (Auto) 3 2 0-10 % Basophils (%) (Auto) 1 1 0-10 % Neutrophils # (Auto) 1.6 L 2.4 1.8-7.8 X 10^3 Lymphocytes # (Auto) 1.5 1.1 1.0-4.0 X 10^3 Monocytes # (Auto) 0.3 0.1 0.0-1.0 X 10^3 Eosinophils # (Auto) 0.1 0.1 0.0-0.3 10^3/uL Basophils # (Auto) 0.0 0.0 0.0-0.1 10^3/uL Sodium Level 145 141 135-145 MMOL/L Potassium Level 3.9 4.5 3.6-5.0 MMOL/L Chloride Level 112 H 98-107 MMOL/L Carbon Dioxide Level 23 21-32 MMOL/L Anion Gap 10 13 5-14 MMOL/L Blood Urea Nitrogen 9 8 7-18 MG/DL Creatinine 0.79 0.78 0.60-1.30 MG/DL Estimat Glomerular Filtration Rate > 60 > 60 BUN/Creatinine Ratio 11 10 Glucose Level 95 85 70-105 MG/DL Calcium Level 8.5 7.6 L 8.5-10.1 MG/DL Corrected Calcium 8.6 8.2 L 8.5-10.1 MG/DL Magnesium Level 2.3 1.6-2.4 MG/DL Total Bilirubin 0.4 0.5 0.1-1.0 MG/DL Aspartate Amino Transf (AST/SGOT) 163 H 262 H 5-34 U/L Alanine Aminotransferase (ALT/SGPT) 79 H 115 H 0-55 U/L Alkaline Phosphatase 98 93 40-136 U/L Total Protein 5.9 L 5.4 L 6.4-8.2 GM/DL Albumin 3.9 3.2 3.2-4.5 GM/DL Triglycerides Level 67 <150 MG/DL Free Thyroxine 0.71 0.70-1.48 NG/DL TSH Power Testing 20.54 H 0.35-4.94 UIU/ML Serum Test, Qualitative NEGATIVE NEGATIVE Salicylates Level < 5.0 L 5.0-20.0 MG/DL Acetaminophen Level < 10 L 10-30 UG/ML Serum Alcohol 105 H <10 MG/DL Urine Color YELLOW Urine Clarity CLEAR Urine pH 7.0 5-9 Urine Specific Pride 1.010 L 1.016-1.022 Urine Protein NEGATIVE NEGATIVE Urine Glucose (UA) NEGATIVE NEGATIVE Urine Ketones NEGATIVE NEGATIVE Urine Nitrite NEGATIVE NEGATIVE Urine Bilirubin NEGATIVE NEGATIVE Urine Urobilinogen 0.2 < = 1.0 MG/DL Urine Leukocyte Esterase NEGATIVE NEGATIVE Urine RBC (Auto) NEGATIVE NEGATIVE Urine RBC NONE /HPF Urine WBC NONE /HPF Urine Crystals NONE /LPF Urine Bacteria NEGATIVE /HPF Urine Casts NONE /LPF Urine Mucus NEGATIVE /LPF Urine Culture Indicated NO Urine Opiates Screen NEGATIVE NEGATIVE Urine Oxycodone Screen NEGATIVE NEGATIVE Urine Methadone Screen NEGATIVE NEGATIVE Urine Propoxyphene Screen NEGATIVE NEGATIVE Urine Barbiturates Screen NEGATIVE NEGATIVE Ur Tricyclic Antidepressants Screen NEGATIVE NEGATIVE Urine Phencyclidine Screen NEGATIVE NEGATIVE Urine Amphetamines Screen POSITIVE H NEGATIVE Urine Methamphetamines Screen NEGATIVE NEGATIVE Urine Benzodiazepines Screen NEGATIVE NEGATIVE Urine Cocaine Screen NEGATIVE NEGATIVE Urine Cannabinoids Screen NEGATIVE NEGATIVE My Orders Orders - KATHARINA SANTORO MD Naloxone Injection (Narcan Injection) (09/20/19 20:57) Acetaminophen (09/20/19 21:04) Alcohol (09/20/19 21:04) Cbc With Automated Diff (09/20/19 21:04) Comprehensive Metabolic Panel (09/20/19 21:04) Drug Screen Stat (Urine) (09/20/19 21:04) Hcg,Qualitative Serum (09/20/19 21:04) Magnesium (09/20/19 21:04) Salicylate (09/20/19 21:04) Thyroid Analyzer (09/20/19 21:04) Ua Culture If Indicated (09/20/19 21:04) Accucheck Stat ONCE (09/20/19 21:04) Ed Iv/Invasive Line Start (09/20/19 21:04) Ct Cervical Spine Wo (09/20/19 21:04) Ns Iv 1000 Ml (Sodium Chloride 0.9%) (09/20/19 21:17) Propofol Drip (Icu) (Diprivan Drip (Icu) (09/20/19 21:30) Triglycerides (09/20/19 21:21) Triglycerides (09/22/19 21:21) Propofol Drip (Icu) (Diprivan Drip (Icu) (09/20/19 21:17) Ekg Tracing (09/20/19 21:28) Monitor-Rhythm Ecg Trace Only (09/20/19 21:28) Chest 1 View, Ap/Pa Only (09/20/19 21:53) Ct Head Wo (09/20/19 22:08) Free T4 (Free Thyroxine) (09/20/19 21:00) Methemoglobin (09/20/19 23:28) Ekg Tracing (09/20/19 23:29) Communication For Respiratory (09/21/19 01:05) Medications Given in ED Current Medications Medications Dose Ordered Sig/Rona Route Start Time Stop Time Status Last Admin Dose Admin Sodium Chloride 1,000 ml @ 0 mls/hr Q0M ONCE IV 09/20/19 21:17 09/20/19 21:18 DC 09/20/19 22:01 999 MLS/HR Vital Signs/I&O 09/20/19 09/20/19 09/21/19 09/21/19 20:57 21:26 00:05 00:13 Temp 36.1 36.1 Pulse 72 81 69 69 Resp 8 16 B/P (MAP) 103/62 (76) 124/82 119/91 119/91 (96) Pulse Ox 88 100 O2 Delivery Room Air Mechanical Ventilator 09/21/19 09/21/19 09/21/19 09/21/19 00:22 00:23 00:26 00:48 Pulse 60 63 61 60 Resp 14 14 B/P (MAP) 121/81 (94) 121/81 Pulse Ox 100 100 O2 Delivery Mechanical Ventilator O2 Flow Rate 60.00 FiO2 75 09/21/19 00:52 O2 Delivery Mechanical Ventilator O2 Flow Rate 50.00 09/21/19 00:00 Intake Total 1000 ml Balance 1000 ml Blood Pressure Mean: 96 FSBG Bedside Testing Finger Stick Blood Glucose: 103 Blood Glucose Action Taken: Maude notified EKG #1: EKG Time: 21:45 Rate: 58 Rhythm: Normal Sinus Intervals: Normal ECG Impression: Normal Comment Normal sinus rhythm with no ST elevation or depression. No abnormal intervals or axis deviation. EKG #2: EKG Time: 23:59 Rate: 58 Rhythm: Normal Sinus Intervals: Normal ECG Impression: Normal Comment Normal sinus rhythm with no ST elevation or depression. No abnormal intervals or axis deviation. Diagnostic Imaging Diagonstic Imaging: CT Plain Films/CT/US/NM/MRI: c-spine Comments CT cervical spine viewed by me and report reviewed. See report below: NAME: JESSICA BEGUM [facility] REC#: [id number] PT STATUS: REG ER : 1965 PHYSICIAN: KATHARINA SANTORO MD ADMIT DATE: 09/20/19/ER Signed Date of Exam:09/20/19 CT CERVICAL SPINE WO PROCEDURE: CT cervical spine without contrast. TECHNIQUE: Multiple contiguous axial images were obtained through the cervical spine without the use of intravenous contrast. Sagittal and coronal reformations were then performed. Auto Exposure Controls were utilized during the CT exam to meet ALARA standards for radiation dose reduction. INDICATION: Found unresponsive. FINDINGS: Patient is currently intubated. The endotracheal tube is within the trachea. There is also an enteric tube within the esophagus. The distal aspect is not included within the [id number] on this exam. Cervical spine alignment appears within normal limits. There are normal relationships at the craniocervical junction. There are normal relationships of the lateral masses of C1 and C2. The facets are normally aligned. There is no facet joint or disc space widening demonstrated. The vertebral body heights appear maintained. No acute cervical spine fracture is evident. There are multilevel degenerative endplate changes which are most advanced at C5-C6 and C6-C7. There is no finding of high-grade central canal stenosis. Lung apices appear clear. The soft tissues of the neck demonstrate no acute process. IMPRESSION: Mild background features of cervical degenerative disc disease. There are no CT findings of an acute cervical spine fracture or traumatic malalignment. There is no evidence to suggest high-grade cervical central canal stenosis. Dictated by: Dictated on workstation # [id number] Dict: 09/20/192146 Trans: 09/20/192157 [facility] [id number] Interpreted by: LEAH VO MD Electronically signed by: LEAH VO MD 09/20/192157 Diagonstic Imaging: Xray Plain Films/CT/US/NM/MRI: chest Comments Chest x-ray viewed by me. Report not yet available. ET tube in good position. No other abnormalities appreciated. Diagonstic Imaging: CT Plain Films/CT/US/NM/MRI: head Comments CT head viewed by me and [employer] report reviewed. No acute injuries identified. Critical Care Note Critical Care Start Time: 20:58 Stop Time: 23:30 Progress Patient was carried into the trauma bay on the rug from the vehicle. C-collar was promptly applied. She was found to be hypoxic with an oxygen saturation of 88 percent which was difficult to measure. Narcan 0.8 mg was administered without effect. An additional 1.2 mg was then administered, still with no effect. An oral airway was placed which caused gag. This was the only spontaneous movement she exhibited. Intubation was performed using induction with etomidate and succinylcholine. C-collar was loosened during intubation and manual C-spine precautions were followed. Sedation was maintained with a propofol drip. Shortly after intubation she needed a propofol bolus of 40 mg and Versed 4 mg until the drip could be established. CT of the head and C-spine were obtained and were both negative for trauma. C-collar was cleared. Poison control was consulted. They suggested monitoring for hypotension, bradycardia, and respiratory suppression. They also suggested checking a methemoglobin zachery ue. Abnormalities can be treated with methylene blue. Patient did show increasing activity and required additional Versed prior to admission. Patient's is Roc Begum, and he was updated multiple times during the course of her ER stay. Unfortunately, he is not allowed to visit as the coronavirus precautions are restricting visitors at this time. He can be reached at [phone]. Patient received a liter of IV fluid in the ER. I did address alcohol consumption with the patient's . He is not under the impression that she drinks very often or very much. Her blood alcohol level was 105. I advised her that she should not be drinking any alcohol with her present medications. An EKG was performed. It was repeated prior to admission at the advice of poison control. Departure Communication (Admissions) Time/Spoke to Admitting Phy: 23:10 Dr. Goss Impression Primary Impression: Unresponsive Additional Impressions: Overdose Qualified Codes: T50.904A - Poisoning by unspecified drugs, medicaments and biological substances, undetermined, initial encounter Respiratory depression Disposition: ADMITTED INPATIENT Condition: Improved Admissions Decision to Admit Reason: Admit from ER (General) Decision to Admit/Date: Sep 21, 2019 Time/Decision to Admit Time: 21:15 Departure-Patient Inst. Referrals: YAMILKA HONG DO (PCP) Primary Care Physician JAMES HONG DNP (Family) Primary Care Physician KATHARINA SANTORO MD Sep 20, 2019 22:41
[2019-09-20] MEDS ORDERED: NALOXONE 0.4 MG/ML 1 ML (NARCAN) VIAL IV ONE (23:00)
[2019-09-20] MEDS ORDERED: SUCCINYLCHOLINE INJ 100 MG/5 ML SYR INJ ONE (23:00)
[2019-09-20] MEDS ORDERED: MIDAZOLAM 5 MG/5 ML (VERSED) VIAL IJ ONE (23:00)
[2019-09-20] MEDS ORDERED: NALOXONE 2 MG/2 ML (NARCAN) SYR IV ONE (23:00)
[2019-09-20] MEDS ORDERED: ETOMIDATE IV SOLN 20 MG/10 ML VIAL IV ONE (23:00)
--- NOTE | 2019-09-20 23:45 | NUR ---
C-collar removed by Dr. Santoro
--- NOTE | 2019-09-20 23:50 | NUR ---
Pt called and updated about plans for admission
[2019-09-21] VITALS (20 sets, daily range): BP systolic 104–129; BP diastolic 64–86
--- NOTE | 2019-09-21 00:02 | NUR ---
Pt reaching for ET tube and beginning to thrash head side to side. Verbal order for 2mg versed received by Dr. Santoro. given IVP. Propofol rate increased at this time.
[2019-09-21] MEDS: D5 1/2 NS W/KCL 20 MEQ/L 1,000 ML IV SCH ×2 (00:48→08:08)
[2019-09-21 01:23] LABS: BASOPHILS % (AUTO) 1 % (0-10); EOSINOPHILS # (AUTO) 0.1 10^3/uL (0.0-0.3); EOSINOPHILS % (AUTO) 2 % (0-10); HEMATOCRIT 37 % (35-52); HEMOGLOBIN 12.1 G/DL (11.5-16.0); LYMPHOCYTES # (AUTO) 1.1 X 10^3 (1.0-4.0); LYMPHOCYTES % (AUTO) 30 % (12-44); MEAN CORPUSCULAR HEMOGLOBIN 30 PG (25-34); MEAN CORPUSCULAR HGB CONC 33 G/DL (32-36); MEAN CORPUSCULAR VOLUME 92 FL (80-99); MEAN PLATELET VOLUME 11.6 FL (7.4-10.4); MONOCYTES # (AUTO) 0.1 X 10^3 (0.0-1.0); MONOCYTES % (AUTO) 4 % (0-12); NEUTROPHILS # (AUTO) 2.4 X 10^3 (1.8-7.8); NEUTROPHILS % (AUTO) 64 % (42-75); WHITE BLOOD COUNT 3.8 10^3/uL (4.3-11.0)
[2019-09-21 01:31] LABS: PLATELET COUNT 29 10^3/uL (130-400)
[2019-09-21 01:33] LABS: ALANINE AMINOTRANSFERASE 115 U/L (0-55); ALBUMIN 3.2 GM/DL (3.2-4.5); ALKALINE PHOSPHATASE 93 U/L (40-136); BILIRUBIN,TOTAL 0.5 MG/DL (0.1-1.0); BUN/CREATININE RATIO 10; CALCIUM 7.6 MG/DL (8.5-10.1); CARBON DIOXIDE 13 MMOL/L (21-32); CHLORIDE 115 MMOL/L (98-107); CREATININE SERUM 0.78 MG/DL (0.60-1.30); GFR ESTIMATED > 60; GLUCOSE 85 MG/DL (70-105); POTASSIUM 4.5 MMOL/L (3.6-5.0); SODIUM 141 MMOL/L (135-145); TOTAL PROTEIN 5.4 GM/DL (6.4-8.2)
[2019-09-21 02:15] LABS: PHOSPHORUS 3.3 MG/DL (2.3-4.7)
--- NOTE | 2019-09-21 03:25 | NUR ---
0325-This RN notified EICU that patient awake and following commands. New order received to turn sedation off and for SIMV mode with Pressure Support of 10. Respiratory at bedside at this time. 0400- This RN notified EICU of ABG results, patient doing well at this time. Order received to extubate. RT still at beside. 0402- RT extubated pt. Pt A&O X4 and vital signs stable. 0407- This RN called patient's , Roc, and gave update. Patient communicated with at this time. 0410- Patient resting comfortably, call light within reach. This RN will continue to monitor.
[2019-09-21 03:53] LABS: ABG BASE EXCESS 0.6 MMOL/L (-2.5-2.5); ABG OXYGEN SATURATION 100 % (94-100); ABG PCO2 32 MMHG (35-45); ABG PH 7.48 (7.37-7.43); ABG PO2 177 MMHG (79-93); ABG TCO2 24.9 MMOL/L (21.0-31.0)
[2019-09-21 03:55] LABS: ALLENS TEST POSITIVE
[2019-09-21 03:56] LABS: INSPIRED O2 12; PATIENT TEMP 36.2; VENTILATOR YES
--- NOTE | 2019-09-21 06:07 | Diagnostic Imaging Report ---
PROCEDURE: CT head without contrast. TECHNIQUE: Multiple contiguous axial images were obtained through the brain without the use of intravenous contrast. Auto Exposure Controls were utilized during the CT exam to meet ALARA standards for radiation dose reduction. INDICATION: Altered mental status. Unresponsive. COMPARISON: MRI brain 07/18/2017. FINDINGS: No intracranial hemorrhage, mass effect, hydrocephalus or extra-axial fluid collections. No CT evidence for territorial infarction. ETT. Osseous structures are intact. The visualized paranasal sinuses and mastoids are clear. IMPRESSION: No acute intracranial CT findings. Dictated by: Dictated on workstation # [id number]
--- NOTE | 2019-09-21 06:36 | Diagnostic Imaging Report ---
EXAM: CHEST 1 VIEW, AP/PA ONLY INDICATION: Altered mental status. Unresponsive. COMPARISON: 03/16/2016. FINDINGS: Normal heart size and central pulmonary vascularity. No focal pulmonary opacity, pleural effusion or pneumothorax. ETT tip approximately 1 cm from the genevieve. NG tube tip and side-port within the stomach. Surgical clips in the upper abdomen. No acute osseous findings. IMPRESSION: 1. Support lines in the expected positions. 2. No acute cardiopulmonary findings. Dictated by: Dictated on workstation # [id number]
[2019-09-21] MEDS ORDERED: ENOXAPARIN 40 MG/0.4 ML (LOVENOX) SYR SC SCH (09:00)
[2019-09-21] MEDS ORDERED: FAMOTIDINE 20MG/2ML IV (PEPCID) IV SCH (09:00)
[2019-09-21 09:53] LABS: FIBRIN DEGRADATION PRODUCTS 2.24 UG/ML (0.00-0.49); PROTHROMBIN TIME PATIENT 13.5 SEC (12.2-14.7)
--- NOTE | 2019-09-21 10:00 | NUR ---
THIS RN SPOKE W/ POISON CONTROL REGARDING RECOMMENDATIONS.OK TO D/C THIS AFTERNOON PER POISON CONTROL.
[2019-09-21] MEDS ORDERED: TRAZ150T72 PO (10:12)
[2019-09-21] MEDS ORDERED: AMPH20TA2 PO (10:12)
[2019-09-21] MEDS ORDERED: LEVO100T PO (10:12)
[2019-09-21] MEDS ORDERED: LIRA0.6P3 SC (10:12)
[2019-09-21] MEDS ORDERED: CHOL200012 PO (10:12)
[2019-09-21] MEDS ORDERED: VILA40TA PO (10:12)
[2019-09-21] MEDS ORDERED: ESZO2TAB31 PO (10:12)
[2019-09-21] MEDS ORDERED: ESTR1PAT92 TD (10:12)
[2019-09-21] MEDS ORDERED: FOLI200T11 PO (10:14)
--- NOTE | 2019-09-21 10:23 | NUR ---
SPOKE WITH THE PT AND WENT THRU THE EXT MED HISTORY TO COMPLETE THE MED REC TRAZODONE 150MG- THE DIRECTIONS IN EXT MED HISTORY SHOW 2 TABS HS, HOWEVER THE PT AND HER DR DECIDED THAT WAS TO MUCH AND SHE IS JUST TAKING 1 TAB HS. OTC MEDS: VIT D DARYL BENAVIDEZ
--- NOTE | 2019-09-21 10:26 | Short Stay Summary-Hospitalist ---
History of Present Illness HPI/Chief Complaint Pt is a 54yoCF with a PMH of anxiety, depression, chronic thrombocytopenia, and gastric bypass who presented to the ER due to unresponsive. She was intubated in the ER due to her mental status but it was thought to be due to an overdose. my exam she has been extubated and states that she had a "no good very bad day." she states that last night she went to take her normal sleeping medicine in hopes of going to sleep and forgetting about the day but accidentally took her sleeping pills twice. She denies any suicidal intent or thoughts of self-harm. She is very apologetic. She has even apologized for use of PPE. She reports feeling well this morning and that her breathing is comfortable. She has intentions to make an appointment with her therapist via telehealth. She is requesting discharge home. Source: patient Date Seen 09/21/19 Time Seen by a Provider: 08:30 Attending Physician Mohsen Goss MD PCP Vic Kaye DO Referring Physician Date of Admission Sep 20, 2019 at 23:32 Home Medications & Allergies Home Medications Reviewed patient Home Medication Reconciliation performed by pharmacy medication reconciliations mechanical laboratory technician and/or nursing. Patients Allergies have been reviewed. Allergies Allergies Coded Allergies Penicillins (Unverified Allergy, Severe, SOA, TONGUE SWELLING, HIVES, 12/10/15) hydrocodone bit (Verified Allergy, Mild, 12/10/15) "ITCHING" Past Rkalxql-Ltzlyn-Rjrtjj Hx Past Med/Social Hx: Reviewed Nursing Past Med/Soc Hx Patient Social History Marrital Status: Alcohol Use: Denies Use Recreational Drug Use: No Recent Foreign Travel: No Contact w/other who traveled: No Recent Hopitalizations: No Recent Infectious Disease Expo: No Immunizations Up To Date Tetanus Booster (TDap): Less than 5yrs Pediatric: No Date of Pneumonia Vaccine: Aug 26, 2011 Date of Influenza Vaccine: May 28, 2019 Seasonal Allergies Seasonal Allergies: Yes (MILD) Past Medical History Surgeries: Abdominal, Breast, Section, Gallbladder, Orthopedic, Thyroidectomy Currently Using CPAP: No Currently Using BIPAP: No Reproductive: No Sexually Transmitted Disease: No HIV/AIDS: No Female Reproductive Disorders: Denies Loss of Vision: Bilateral Hearing Impairment: Denies Cancer: Thyroid Psychosocial: Sleep Difficulties, Depression History of Blood Disorders: Yes (HX OF BILATERAL DVT AFTER GALL BLADDER SURGERY APPROX 2002, ANEMIA) Adverse Reaction to Blood Cruz: No (N/A) Family History Patient reports no known family medical history. Heart Disease, COPD, Other Conditions/Hx Review of Systems Constitutional: No chills, No fever EENTM: no symptoms reported Respiratory: no symptoms reported Cardiovascular: no symptoms reported Gastrointestinal: no symptoms reported Genitourinary: no symptoms reported Musculoskeletal: muscle stiffness Skin: no symptoms reported Psychiatric/Neurological: Anxiety, Depressed Physical Exam Physical Exam Vital Signs Vital Signs - First Documented 09/20/19 09/21/19 09/21/19 20:57 00:22 00:23 Temp 36.1 Pulse 72 Resp 8 B/P (MAP) 103/62 (76) Pulse Ox 88 O2 Delivery Room Air O2 Flow Rate 60.00 FiO2 75 Capillary Refill : Less Than 3 Seconds Height, Weight, BMI Height: 5'5.00" Weight: 139lbs. 8.0oz. 63.234690nz; 26.48 BMI Method:Stated General Appearance: No Apparent Distress, WD/WN HEENT: Moist Mucous Membranes; No Scleral Icterus (L), No Scleral Icterus (R) Neck: Normal Inspection, Supple; No Thyromegaly Respiratory: Lungs Clear, No Accessory Muscle Use, No Respiratory Distress Cardiovascular: Regular Rate, Rhythm, No Murmur Gastrointestinal: Normal Bowel Sounds, Non Tender, Soft Extremity: Normal Capillary Refill, No Calf Tenderness, No Pedal Edema Neurologic/Psychiatric: Alert, Oriented x3, Normal Mood/Affect Skin: Normal Color, Warm/Dry Results Results/Procedures Labs Patient resulted labs reviewed. Imaging: Reviewed Imaging Report Imaging Date of Exam:09/20/19 CT HEAD WO PROCEDURE: CT head without contrast. TECHNIQUE: Multiple contiguous axial images were obtained through the brain without the use of intravenous contrast. Auto Exposure Controls were utilized during the CT exam to meet ALARA standards for radiation dose reduction. INDICATION: Altered mental status. Unresponsive. COMPARISON: MRI brain 07/18/2017. FINDINGS: No intracranial hemorrhage, mass effect, hydrocephalus or extra-axial fluid collections. No CT evidence for territorial infarction. ETT. Osseous structures are intact. The visualized paranasal sinuses and mastoids are clear. IMPRESSION: No acute intracranial CT findings. Short Stay Diagnosis Discharge Diagnosis-Short Stay Admission Diagnosis Acute Respiratory Failure Final Discharge Diagnosis Acute Respiratory Failure Conclusion Plan Acute Respiratory failure Accidental Overdose Patient accidentally took her sleeping medicine twice last night Now extubated, denies any suicidal or self harm intentions Protecting her airway Shellfish Processing Laborer consulted, appreciate their assistance Plan to DC home today once outside poison control monitoring recs Clinical Quality Measures DVT/VTE Risk/Contraindication: Risk Factor Score Per Nursin RFS Level Per Nursing on Admit: 4+=Very High ELSIE BIGGS MD Sep 21, 2019 10:26
--- NOTE | 2019-09-21 10:33 | Discharge Inst-Simple/Standard ---
Discharge Inst-Standard Discharge Medications New, Converted or Re-Newed RX: Transmitted to Pharmacy Patient Instructions/Follow Up Plan of Care/Instructions/FU: Please continue to take your medications only as prescribed. Please keep your TeleHealth visit with your therapist. Activity as Tolerated: Yes Discharge Diet: No Restrictions Return to The Hospital For: Chest pain, shortness of breath, fever, anxiety, thoughts of self harm or suicide, if you feel you are getting worse. ELSIE BIGGS MD Sep 21, 2019 10:33
--- NOTE | 2019-09-21 13:46 | NUR ---
CM/SS visited with the patient for discharge planning. Plan: The patient will return home and contact her therapist in [place] ([facility]) to do a phone visit. The patient reports that she is not suicidal and was not attempting to kill herself. She verbalized that it was an accident due to forgetting that she already took her sleeping pills. The patient states she was actually getting ready to go outside pray and look at the balderas. Her 3 children are home from school and she states they provide her with extra support. Her is a good support system for her as well according to the patient. The patient states that she is diagnosed with Bipolar 1 and is getting her medications from [facility]. She does have depression and anxiety. She feels that she has been managing her symptoms very well until yesterday. The patient did not express any other questions or concerns.
--- NOTE | 2019-09-21 14:15 | NUR ---
JESSICA MARINO demonstrates understanding of discharge instructions and accurately returns instructions upon questioning. Copy of Post-Discharge Instructions and Medication Discharge Instructions given to PT. JESSICA MARINO is able to manage continuing needs after discharge. Patients belongings returned to PT. Skin dry and intact; no breakdown noted. Patient discharged from [facility] on 09/21/19 at 1415. JESSICA MARINO left floor via WC, accompanied by STAFF.
== END 2019-09-21 14:15 | disposition home or self-care (01) | DRG 917 ==
LOC: EDUNIT# 20:57 → ER 20:58 → ICU 23:32
PROVIDERS: ADMIT Internal Medicine; ATTEND Internal Medicine
PROC: 5A1935Z Respiratory Ventilation, Less than 24 Consecutive Hours (ICD-10-PCS; principal; 2019-09-20)
PROC: 0BH17EZ Insertion of Endotracheal Airway into Trachea, Via Natural or Artificial Opening (ICD-10-PCS; 2019-09-20)
DX: T42.71XA Poisoning by unspecified antiepileptic and sedative-hypnotic drugs, accidental (unintentional), initial encounter (principal); J96.01 Acute respiratory failure with hypoxia; R40.1 Stupor; G47.9 Sleep disorder, unspecified; E89.0 Postprocedural hypothyroidism; F32.9 Major depressive disorder, single episode, unspecified; F41.9 Anxiety disorder, unspecified; J30.2 Other seasonal allergic rhinitis; M85.80 Other specified disorders of bone density and structure, unspecified site; Z86.718 Personal history of other venous thrombosis and embolism; Z98.84 Bariatric surgery status
CPT/HCPCS: 31500; 36415; 51702; 70450; 71045; 72125; 80053; 80306; 80320; 80329; 81000; 82805; 83050; 83735; 84100; 84439; 84443; 84478; 84703; 85025; 85049; 85379; 85384; 85610; 85730; 87070; 87081; 87205; 93041; 94002; 94799

== ENCOUNTER → 2019-09-26 | Outpatient (CLI) | payer BC ==
[~2019-09-26] MED LIST changes: +CHOL200012 PO; +ESTR1PAT92 TD; +ESZO2TAB31 PO; +FOLI200T11 PO; +LEVO100T PO; +LIRA0.6P3 SC; -NALOXONE 2 MG/2 ML (NARCAN) SYR ONE; +TRAZ150T72 PO; +VILA40TA PO
== END ==
LOC: LAB 09:44
PROVIDERS: ATTEND Nurse Practitioner Family
DX: Z01.89 Encounter for other specified special examinations (principal)
CPT/HCPCS: 87430

== ENCOUNTER → 2019-11-13 | Outpatient (CLI) | payer BC ==
[~2019-11-13] MED LIST changes: +GADOBUTROL 10 MMOL/10 ML (GADAVIST) VIAL IV ONE
--- NOTE | 2019-11-15 08:40 | Diagnostic Imaging Report ---
PROCEDURE: MR imaging of the brain with and without contrast. TECHNIQUE: Multiplanar, multisequence MR imaging of the brain was performed with and without contrast. INDICATION: Idiopathic progressive neuropathy. COMPARISON: 07/18/2017. Findings: No acute ischemia, mass, or hemorrhage. No abnormal enhancement. Scattered T2/FLAIR hyperintense signal lesions are seen in the periventricular and subcortical white matter, relatively unchanged compared to the prior exam in 2018. The ventricles, cortical sulci, and basilar cisterns are symmetric and unremarkable. The sellar and suprasellar regions have a normal appearance. The major intracranial flow voids are intact. The brainstem and posterior fossa are unremarkable. The paranasal sinuses and mastoid air cells demonstrate normal signal characteristics. The globes and orbits are symmetric and unremarkable. The scalp and calvarium have a normal appearance. Impression: 1. No acute ischemia, mass, or hemorrhage. No abnormal enhancement. 2. Stable appearance of scattered T2/FLAIR hyperintense signal lesions in the periventricular and subcortical white matter. These findings are nonspecific and can be seen with demyelination, chronic small vessel ischemic disease, or inflammatory/infectious etiologies such as Lyme disease. Recommend correlation with patient history and symptoms. Dictated by: Dictated on workstation # [id number]
== END ==
LOC: RAD 11:24
PROVIDERS: ATTEND Psychiatry & Neurology Neurology
DX: G60.3 Idiopathic progressive neuropathy (principal); R40.1 Stupor; G93.89 Other specified disorders of brain
CPT/HCPCS: 70553

== ENCOUNTER 2019-12-11 05:33 | Outpatient (RCR) | payer BC ==
[~2019-12-11] VITALS: Ht 165.1 cm; Wt 68.9 kg
[~2019-12-11 05:33] MED LIST changes: +COLE5PAC3 PO; -GADOBUTROL 10 MMOL/10 ML (GADAVIST) VIAL IV ONE; +GLUT5POW MC; +LEVO125T6 PO; +LURA80TA3 PO; +MECO1POW4 MC
== END 2019-12-11 15:09 | disposition home or self-care (01) ==
LOC: PREOP 05:33
PROVIDERS: ATTEND Surgery
DX: Z01.818 Encounter for other preprocedural examination (principal); Z11.59 Encounter for screening for other viral diseases
CPT/HCPCS: 87635

== ENCOUNTER 2019-12-14 08:23 | Day surgery (SDC) | payer BC ==
[2019-12-14] VITALS (15 sets, daily range): BP systolic 93–139; BP diastolic 58–81
[~2019-12-14] VITALS: Ht 165.1 cm; Wt 68.9 kg
[2019-12-14] MEDS ORDERED: NS IV 500 ML 500 ML IV PRN (08:37)
[2019-12-14] MEDS ORDERED: NS IV 500 ML 500 ML ONE (08:41)
--- OUTSIDE RECORDS SUMMARY | 2019-12-14 08:44 | XMS REPORT | Clinical Summary ---
Author Author [facility] Organization [facility] Address Unknown Phone Unavailable Care Team Providers Care Green Chain Marker Name Role Phone Hudson Swanson MD Unavailable Whitney Tavares DO PCP Source Comments Some departments are not documenting in the electronic medical record. If you d o not see the information that you expected, contact Release of Information in [facility] [employer] Information Management department at [phone] for further assistan ce in locating additional records.[facility] Allergies Comments Active Allergy Reactions Severity Noted Date Hydrocodone HIVES, 08/19/2011 ITCHING Penicillins HIVES 08/19/2011 Medications End Date Status Medication Sig Dispensed Refills Start Date Active amphetamine-dextroampheta Take 30 mg by 0 mine XR(+) (ADDERALL XR) mouth twice 30 mg capsule daily. Active lamoTRIgine (LAMICTAL) Take 200 mg 0 200 mg tablet by mouth twice daily. Active ERGOCALCIFEROL (VITAMIN Take 300 mg 0 D2) (VITAMIN D PO) by mouth daily. Active oxyCODONE (ROXICODONE) 5 Take 1-3 Tabs 120 Tab 0 mg tablet by mouth 2 every 3 hours as needed for Pain. Active oxyCODONE SR (OXYCONTIN) Take 1 Tab by 30 Tab 0 10 mg tablet mouth twice 2 daily. Active docusate (COLACE) 100 mg Take 1 Cap by 40 Cap 1 capsule mouth twice 2 daily as needed for Constipation. Active Problems Not on file Social History Date Tobacco Use Types Packs/Day Years Used Never Smoker Smokeless Tobacco: Never Used Drinks/Week oz/Week Comments Alcohol Use 3 Shots of liquor 3.0 Yes Sex Assigned at Date Recorded Not on file Industry Job Start Date Occupation Not on file Not on file Not on file Travel End Travel History Travel Start No recent travel history available. Last Filed Vital Signs Reading Time Taken Comments Vital Sign 103/64 08/24/2011 12:08 PM HOME ECONOMICS TEACHER Blood Pressure 97 08/24/2011 12:08 PM HOME ECONOMICS TEACHER Pulse 37.1 C (98.7 F) 08/24/2011 12:08 PM HOME ECONOMICS TEACHER Temperature - - Respiratory Rate 99% 08/24/2011 12:08 PM HOME ECONOMICS TEACHER Oxygen Saturation - - Inhaled Oxygen Concentration 62.1 kg (137 lb) 08/19/2011 1:01 PM HOME ECONOMICS TEACHER Weight 165.1 cm (5' 5") 08/19/2011 1:01 PM HOME ECONOMICS TEACHER Height 22.8 08/19/2011 1:01 PM HOME ECONOMICS TEACHER Body Mass Index Plan of Treatment Health Maintenance Due Date Last Done Comments HIV SCREENING 1980 DTAP/TDAP VACCINES (1 - 1983 Tdap) HEPATITIS C SCREENING 1983 PHYSICAL (COMPREHENSIVE) 1983 EXAM CERVICAL CANCER SCREENING 1986 BREAST CANCER SCREENING 2005 COLORECTAL CANCER 2015 SCREENING SHINGLES RECOMBINANT 2015 VACCINE (1 of 2) INFLUENZA VACCINE 03/27/2020 Results Not on filefrom Last 3 Months Advance Directives Date Inactivated Comments Code Status Date Activated 08/25/2011 5:38 AM Full Code 08/23/2011 9:18 PM Provider has discussed Code Status Yes w/Patient or Family?
[2019-12-14] MEDS ORDERED: LIDOCAINE JELLY 2% 6 ML SYRINGE MM PRN (08:45)
[2019-12-14] MEDS ORDERED: HURRICAINE EXT TUBE (BENZOCAINE) XX PRN (08:45)
[2019-12-14] MEDS ORDERED: fentaNYL INJECTION 100 MCG/2 ML AMP IVP ONE (08:45)
--- OUTSIDE RECORDS SUMMARY | 2019-12-14 08:46 | XMS REPORT | Continuity of Care Document ---
Author Organization Unknown Address Unknown Phone Unavailable Allergies Active Description Code Type Severity Reaction Onset Reported/Identified Relationship to Patient Clinical Status Yes Penicillins [id number] Drug Aller gy Severe SOA, TONGUE SWE 12/10/2015 Yes acetaminophen [id number] Michael g Allergy Mild N/A 12/10/2015 Yes hydrocodone bit [id number] D rug Allergy Mild N/A 12/10/2015 Medications There is no data. Problems Date Dx Coded Attending Type Code Diagnosis Diagnosed By 04/28/2011 Ot 873.0 OPEN WOUND OF SCALP 04/28/2011 Ot E000.8 OT ER EXTERNAL CAUSE STATUS 04/28/2011 Ot E849.6 ACC IDENT IN PUBLIC BLDG 04/28/2011 Ot E917.4 STA T OB W/O SUB FALL NEC 08/12/2011 Ot 825.0 FRAC TURE CALCANEUS-CLOSE 08/12/2011 Ot E000.8 OTH ER EXTERNAL CAUSE STATUS 08/12/2011 Ot E013.9 OT ER HOUSEHOLD MAINTENANCE 08/12/2011 Ot E849.0 ACC IDENT IN HOME 08/12/2011 Ot E881.0 FAL L FROM LADDER 08/12/2011 Ot V04.81 ND FOR PROPHYLACTIC VACCIN AND INOCULATI 08/12/2011 Ot V12.51 HX- VENOUS THROMBOSIS EMBOLISM 08/12/2011 Ot V58.69 OTH MED,LT,CURRENT USE 12/28/2011 Ot 716.97 ART HROPATHY NOS- ANKLE 12/28/2011 Ot 719.07 JACQUELYN NT EFFUSION- ANKLE 12/28/2011 Ot 719.47 JACQUELYN NT PAIN-ANKLE 04/13/2012 Ot 552.20 OBS TR VENTRAL HERNIA NOS 12/02/2012 LISA MONK MD Ot 722.52 LUMB/LUMBOSAC DISC DEGEN 12/02/2012 LISA MONK MD Ot 737.30 IDIOPATHIC SCOLIOSIS 12/02/2012 LISA MONK MD Ot 922.32 BUTTOCK CONTUSION 12/02/2012 LISA MONK MD Ot 959.19 OTH INJURY OF OTHER SITES OF TRUNK 12/02/2012 LISA MONK MD Ot E000.8 OTHER EXTERNAL CAUSE STATUS 12/02/2012 LISA MONK MD Ot E001.0 ACTIVITIES INVOLVING WALKING, MARCHING A 12/02/2012 LISA MONK MD Ot E849.0 ACCIDENT IN HOME 12/02/2012 LISA MONK MD Ot E880.9 FALL ON STAIR/STEP NEC 03/05/2013 GILLIS DO, ANDREAS Ot 280.9 IRON DEFIC ANEMIA NOS 03/12/2014 GILLIS DO, ANDREAS Ot 280.9 IRON DEFIC ANEMIA NOS 07/09/2014 Ot V76.12 07/09/2014 Ot V76.12 07/09/2014 Ot 719.47 07/09/2014 Ot 729.5 07/09/2014 Ot 553.29 07/09/2014 Ot V72.63 07/09/2014 Ot V74.8 07/09/2014 GILLIS DO, ANDREAS Ot V76.12 07/09/2014 Ot 280.9 09/24/2014 Ot V76.12 09/24/2014 Ot 719.47 09/24/2014 Ot 729.5 09/24/2014 Ot 553.29 09/24/2014 Ot V72.63 09/24/2014 Ot V74.8 09/24/2014 GILLIS DO, ANDREAS Ot V76.12 09/24/2014 Ot 280.9 12/25/2014 GILLIS DO, ANDREAS Ot 280.9 12/27/2014 GILLIS DO, ANDREAS Ot 280.9 12/30/2014 GILLIS DO, ANDREAS Ot 280.9 12/30/2014 GILLIS DO, ANDREAS Ot 280.9 01/01/2015 GILLIS DO, ANDREAS Ot 280.9 01/10/2015 KATHLEEN CAMPBELL DC Ot 721. 3 01/10/2015 KATHLEEN CAMPBELL DC Ot 737. 30 01/10/2015 GILLIS DO, ANDREAS Ot V76.12 01/10/2015 GILLIS DO, ANDREAS Ot 280.9 03/23/2015 GILLIS DO, ANDREAS Ot 280.9 IRON DEFIC ANEMIA NOS 03/23/2015 GILLIS DO, ANDREAS Ot D50.9 IRON DEFICIENCY ANEMIA, UNSPECIFIED 04/10/2015 Ot V76.12 04/10/2015 Ot 719.47 04/10/2015 Ot 729.5 04/10/2015 Ot 553.29 04/10/2015 Ot V72.63 04/10/2015 Ot V74.8 04/10/2015 GILLIS DO, ANDREAS Ot V76.12 04/10/2015 Ot 280.9 04/10/2015 LONG DC, KATHLEEN S Ot 721. 3 04/10/2015 LONG DC, KATHLEEN S Ot 737. 30 04/10/2015 GILLIS DO, ANDREAS Ot V76.12 04/10/2015 GILLIS DO, ANDREAS Ot 280.9 04/10/2015 VICTOR MANUEL DPM, IRINA Q Ot M20. 41 04/10/2015 VICTOR MANUEL DPM, IRINA Q Ot Z01.818 04/10/2015 VICTOR MANUEL DPM, IRINA Q Ot Z11. 2 04/10/2015 VICTOR MANUEL DPM, IRINA Q Ot M20. 11 HALLUX VALGUS (ACQUIRED), RIGHT FOOT 04/10/2015 VICTOR MANUEL DPM, IRINA Q Ot M20. 41 OTHER HAMMER TOE(S) (ACQUIRED), RIGHT FO 09/17/2015 GILLIS DO, ANDREAS Ot D50.9 09/19/2015 GILLIS DO, ANDREAS Ot D50.9 09/22/2015 GILLIS DO, ANDREAS Ot D50.9 09/24/2015 GILLIS DO, ANDREAS Ot D50.9 10/08/2015 GILLIS DO, ANDREAS Ot D50.9 11/26/2015 JAMES HONG LEGAL RECORDS MANAGER Ot E01.0 IODINE-DEFICIENCY RELATED DIFFUSE (ENDEM 11/26/2015 JAMES HONG LEGAL RECORDS MANAGER Ot R60.0 LOCALIZED EDEMA 12/01/2015 JAMES HONG LEGAL RECORDS MANAGER Ot E01.0 IODINE-DEFICIENCY RELATED DIFFUSE (ENDEM 12/01/2015 JAMES HONG LEGAL RECORDS MANAGER Ot R60.0 LOCALIZED EDEMA 12/08/2015 JAMES HONG LEGAL RECORDS MANAGER Ot E01.0 IODINE-DEFICIENCY RELATED DIFFUSE (ENDEM 12/08/2015 JAMES HONG LEGAL RECORDS MANAGER Ot R60.0 LOCALIZED EDEMA 12/09/2015 ALLAN LAMAR, CALLI Guzmán Ot E04.1 NONTOXIC SINGLE THYROID NODULE 12/09/2015 ALLAN LAMAR, CALLI Guzmán Ot Z01.812 ENCOUNTER FOR PREPROCEDURAL LABORATORY E 12/09/2015 ALLAN LAMAR, CALLI Guzmán Ot Z11.2 ENCOUNTER FOR SCREENING FOR OTHER BACTER 12/10/2015 Ot 280.9 IRON DEFIC ANEMIA NOS 12/10/2015 ELIS TRAYLOR, ANDREAS Ot 280.9 12/10/2015 Ot 280.9 IRON DEFIC ANEMIA NOS 12/10/2015 ELIS TRAYLOR, ANDREAS Ot 280.9 12/10/2015 ALLAN LAMAR, CALLI Guzmán Ot E04.1 NONTOXIC SINGLE THYROID NODULE 12/10/2015 ALLAN LAMAR, CALLI Guzmán Ot Z01.812 ENCOUNTER FOR PREPROCEDURAL LABORATORY E 12/10/2015 ALLAN LAMAR, CALLI Guzmán Ot Z11.2 ENCOUNTER FOR SCREENING FOR OTHER BACTER 12/10/2015 ALLAN LAMAR, CALLI Guzmán Ot E04.1 NONTOXIC SINGLE THYROID NODULE 12/11/2015 JAMES HONG Ot Z09 ENCNTR FOR F/U EXAM AFT TRTMT FOR COND O 12/11/2015 JAMES HONG Ot Z86.718 PERSONAL HISTORY OF OTHER VENOUS THROMBO 12/11/2015 ALLAN LAMAR, CALLI Guzmán Ot E04.1 NONTOXIC SINGLE THYROID NODULE 12/14/2015 RAY GILLIS DOI Ot D50.9 IRON DEFICIENCY ANEMIA, UNSPECIFIED 12/18/2015 JAMES HONGP Ot E01.0 IODINE-DEFICIENCY RELATED DIFFUSE (ENDEM 12/18/2015 JAMES HONGP Ot R60.0 LOCALIZED EDEMA 12/24/2015 YAMILKA HONG DO Ot I89.0 LYMPHEDEMA, NOT ELSEWHERE CLASSIFIED 12/24/2015 YAMILKA HONG DO Ot R10.2 PELVIC AND PERINEAL PAIN 12/24/2015 CALLI LEMUS MD Ot E04.1 NONTOXIC SINGLE THYROID NODULE 12/28/2015 YAMILKA HONG DO Ot I89.0 LYMPHEDEMA, NOT ELSEWHERE CLASSIFIED 12/28/2015 YAMILKA HONG DO Ot R10.2 PELVIC AND PERINEAL PAIN 01/01/2016 HONG, JAMES L LEGAL RECORDS MANAGER Ot Z09 ENCNTR FOR F/U EXAM AFT TRTMT FOR COND O 01/01/2016 HALJAMES LEGAL RECORDS MANAGER Ot Z86.718 PERSONAL HISTORY OF OTHER VENOUS THROMBO 01/01/2016 ALLAN LAMAR, CALLI Guzmán Ot E04.1 NONTOXIC SINGLE THYROID NODULE 01/04/2016 Ot 719.47 JACQUELYN NT PAIN-ANKLE 01/04/2016 Ot 729.5 PAIN IN LIMB 01/04/2016 Ot 553.29 LAILA TRAL HERNIA NEC 01/04/2016 Ot V72.63 PRE -PROCEDURAL LABORATORY EXAMINATION 01/04/2016 Ot V74.8 SCRE EN-BACTERIAL DIS NEC 01/04/2016 ANDREAS GILLIS DO Ot V76.12 OTH SCREEN MAMMO-MALIGN NEOPLASM OF [place] 01/04/2016 Ot 280.9 IRON DEFIC ANEMIA NOS 01/04/2016 KATHLEEN CAMPBELL DC Ot 721. 3 LUMBOSACRAL SPONDYLOSIS 01/04/2016 KATHLEEN CAMPBELL DC Ot 737. 30 IDIOPATHIC SCOLIOSIS 01/04/2016 ANDREAS GILLIS DO Ot V76.12 OTH SCREEN MAMMO-MALIGN NEOPLASM OF [place] 01/04/2016 ANDREAS GILLIS DO Ot 280.9 01/04/2016 VICTOR MANUEL DPM, IRINA Q Ot M20. 41 OTHER HAMMER TOE(S) (ACQUIRED), RIGHT FO 01/04/2016 VICTOR MANUEL DPM, IRINA Q Ot Z01.818 ENCOUNTER FOR OTHER PREPROCEDURAL EXAMIN 01/04/2016 VICTOR MANUEL DPM, IRINA Q Ot Z11. 2 ENCOUNTER FOR SCREENING FOR OTHER BACTER 01/13/2016 Ot 719.47 JACQUELYN NT PAIN-ANKLE 01/13/2016 Ot 729.5 PAIN IN LIMB 01/13/2016 Ot 553.29 LAILA TRAL HERNIA NEC 01/13/2016 Ot V72.63 PRE -PROCEDURAL LABORATORY EXAMINATION 01/13/2016 Ot V74.8 SCRE EN-BACTERIAL DIS NEC 01/13/2016 ANDREAS GILLIS DO Ot V76.12 OTH SCREEN MAMMO-MALIGN NEOPLASM OF [place] 01/13/2016 Ot 280.9 IRON DEFIC ANEMIA NOS 01/13/2016 KATHLEEN CAMPBELL DC Ot 721. 3 LUMBOSACRAL SPONDYLOSIS 01/13/2016 LONG DC, KATHLEEN S Ot 737. 30 IDIOPATHIC SCOLIOSIS 01/13/2016 ANDREAS GILLIS DO Ot V76.12 OTH SCREEN MAMMO-MALIGN NEOPLASM OF [place] 01/13/2016 GILLISTRESA TRAYLOR ANDREAS Ot 280.9 01/13/2016 VICTOR MANUEL DPM, IRINA Q Ot M20. 41 OTHER HAMMER TOE(S) (ACQUIRED), RIGHT FO 01/13/2016 VICTOR MANUEL DPM, IRINA Q Ot Z01.818 ENCOUNTER FOR OTHER PREPROCEDURAL EXAMIN 01/13/2016 VICTOR MANUEL DPM, IRINA Q Ot Z11. 2 ENCOUNTER FOR SCREENING FOR OTHER BACTER 01/16/2016 YAMILKA HONG DO Ot I89.0 LYMPHEDEMA, NOT ELSEWHERE CLASSIFIED 01/16/2016 YAMILKA HONG DO Ot R10.2 PELVIC AND PERINEAL PAIN 02/11/2016 JAMES HONG Ot E01.0 IODINE-DEFICIENCY RELATED DIFFUSE (ENDEM 02/11/2016 JAMES HONG Ot R60.0 LOCALIZED EDEMA 02/11/2016 ALLAN LAMAR, CALLI Guzmán Ot E04.1 NONTOXIC SINGLE THYROID NODULE 02/11/2016 JAMES HONG Ot Z09 ENCNTR FOR F/U EXAM AFT TRTMT FOR COND O 02/11/2016 JAMES HONG Ot Z86.718 PERSONAL HISTORY OF OTHER VENOUS THROMBO 02/11/2016 YAMILKA HONG DO Ot I89.0 LYMPHEDEMA, NOT ELSEWHERE CLASSIFIED 02/11/2016 YAMILKA HONG DO Ot R10.2 PELVIC AND PERINEAL PAIN 02/11/2016 Ot D50.9 IRON DEFICIENCY ANEMIA, UNSPECIFIED 03/16/2016 TERRI LAMAR, KATHARINA Cuellar Ot E86.1 HYPOVOLEMIA 03/16/2016 TERRI LAMAR, KATHARINA Cuellar Ot R11.2 NAUSEA WITH VOMITING, UNSPECIFIED 03/16/2016 TERRI LAMAR, KATHARINA Cuellar Ot R19.7 DIARRHEA, UNSPECIFIED 03/16/2016 TERRI LAMAR, KATHARINA Cuellar Ot R55 SYNCOPE AND COLLAPSE 03/19/2016 TERRI LAMAR, KATHARINA Cuellar Ot E86.1 HYPOVOLEMIA 03/19/2016 TERRI LAMAR, KATHARINA Cuellar Ot R11.2 NAUSEA WITH VOMITING, UNSPECIFIED 03/19/2016 TERRI LAMAR, KATHARINA Cuellar Ot R19.7 DIARRHEA, UNSPECIFIED 03/19/2016 TERRI LAMAR, KATHARINA Cuellar Ot R55 SYNCOPE AND COLLAPSE 03/23/2016 YAMILKA HONG DO Ot I89.0 LYMPHEDEMA, NOT ELSEWHERE CLASSIFIED 03/23/2016 YAMILKA HONG DO Ot R10.2 PELVIC AND PERINEAL PAIN 07/20/2016 ZEYAD HONGRICIA L LEGAL RECORDS MANAGER Ot K58.9 IRRITABLE BOWEL SYNDROME WITHOUT DIARRHE 07/20/2016 HAL JAMES L LEGAL RECORDS MANAGER Ot R50.9 FEVER, UNSPECIFIED 07/20/2016 HAL JAMES L LEGAL RECORDS MANAGER Ot Z79.899 OTHER PIPING ENGINEER (CURRENT) DRUG THERAPY 08/11/2016 HONG, JAMES L LEGAL RECORDS MANAGER Ot K58.9 IRRITABLE BOWEL SYNDROME WITHOUT DIARRHE 08/11/2016 HAL JAMES L LEGAL RECORDS MANAGER Ot R50.9 FEVER, UNSPECIFIED 08/11/2016 HONG, JAMES L LEGAL RECORDS MANAGER Ot Z79.899 OTHER PIPING ENGINEER (CURRENT) DRUG THERAPY 10/17/2016 HONG, JAMES L LEGAL RECORDS MANAGER Ot K58.9 IRRITABLE BOWEL SYNDROME WITHOUT DIARRHE 10/17/2016 HONG, JAMES L LEGAL RECORDS MANAGER Ot R50.9 FEVER, UNSPECIFIED 10/17/2016 HONG, JAMES L LEGAL RECORDS MANAGER Ot Z79.899 OTHER PIPING ENGINEER (CURRENT) DRUG THERAPY 03/05/2017 FELIPA WELLS Ot H54.0 BLINDNESS, BOTH EYES 03/05/2017 FELIPA WELLS Ot R 51 HEADACHE 03/05/2017 FELIPA WELLS Ot S09.90XA UNSPECIFIED INJURY OF HEAD, INITIAL ENCO 03/05/2017 FELIPA WELLS Ot W51.XXXA ACCIDENTAL STRIKE OR BUMPED INTO BY ANOT 03/05/2017 FELIPA WELLS Ot Z82.49 FAMILY HX OF ISCHEM HEART DIS AND OTH DI 03/05/2017 FELIPA WELLS Ot Z86.718 PERSONAL HISTORY OF OTHER VENOUS THROMBO 03/05/2017 FELIPA WELLS Ot Z87.59 PERSONAL HISTORY OF COMP OF PREG, CHLDBR 03/05/2017 FELIPA WELLS Ot Z90.89 ACQUIRED ABSENCE OF OTHER ORGANS 03/07/2017 FELIPA WELLS Ot H54.0 BLINDNESS, BOTH EYES 03/07/2017 FELIPA WELLS Ot R 51 HEADACHE 03/07/2017 FELIPA WELLS Ot S09.90XA UNSPECIFIED INJURY OF HEAD, INITIAL ENCO 03/07/2017 FELIPA WELLS Ot W51.XXXA ACCIDENTAL STRIKE OR BUMPED INTO BY ANOT 03/07/2017 FELIPA WELLS Ot Z82.49 FAMILY HX OF ISCHEM HEART DIS AND OTH DI 03/07/2017 FELIPA WELLS Ot Z86.718 PERSONAL HISTORY OF OTHER VENOUS THROMBO 03/07/2017 FELIPA WELLS Ot Z87.59 PERSONAL HISTORY OF COMP OF PREG, CHLDBR 03/07/2017 FELIPA WELLS Ot Z90.89 ACQUIRED ABSENCE OF OTHER ORGANS 04/25/2017 YAMILKA HONG DO Ot I89.0 LYMPHEDEMA, NOT ELSEWHERE CLASSIFIED 04/25/2017 YAMILKA HONG DO Ot R10.2 PELVIC AND PERINEAL PAIN 04/26/2017 VICTOR MANUEL DPM, IRINA Q Ot M20. 41 OTHER HAMMER TOE(S) (ACQUIRED), RIGHT FO 04/26/2017 VICTOR MANUEL DPM, IRINA Q Ot Z01.818 ENCOUNTER FOR OTHER PREPROCEDURAL EXAMIN 04/27/2017 VICTOR MANUEL DPM, IRINA Q Ot M20. 41 OTHER HAMMER TOE(S) (ACQUIRED), RIGHT FO 04/27/2017 VICTOR MANUEL DPM, IRINA Q Ot Z01.818 ENCOUNTER FOR OTHER PREPROCEDURAL EXAMIN 05/09/2017 YAMILKA HONG DO Ot I89.0 LYMPHEDEMA, NOT ELSEWHERE CLASSIFIED 05/09/2017 YAMILKA HONG DO Ot R10.2 PELVIC AND PERINEAL PAIN 05/09/2017 JAMES HONG Ot Z12.31 ENCNTR SCREEN MAMMOGRAM FOR MALIGNANT NE 05/09/2017 Ot 280.9 IRON DEFIC ANEMIA NOS 05/09/2017 ANDREAS GILLIS DO Ot 280.9 05/09/2017 Ot D50.9 IRON DEFICIENCY ANEMIA, UNSPECIFIED 05/09/2017 JAMES HONG LEGAL RECORDS MANAGER Ot K58.9 IRRITABLE BOWEL SYNDROME WITHOUT DIARRHE 05/09/2017 JAMES HONG LEGAL RECORDS MANAGER Ot R50.9 FEVER, UNSPECIFIED 05/09/2017 JAMES HONG LEGAL RECORDS MANAGER Ot Z79.899 OTHER PIPING ENGINEER (CURRENT) DRUG THERAPY 05/09/2017 VICTOR MANUEL DPM, IRINA Q Ot E03. 9 HYPOTHYROIDISM, UNSPECIFIED 05/09/2017 VICTOR MANUEL DPM, IRINA Q Ot E53. 8 DEFICIENCY OF OTHER SPECIFIED B GROUP 05/09/2017 VICTOR MANUEL DPM, IRINA Q Ot E55. 9 VITAMIN D DEFICIENCY, UNSPECIFIED 05/09/2017 VICTOR MANUEL DPM, IRINA Q Ot F31. 9 BIPOLAR DISORDER, UNSPECIFIED 05/09/2017 VICTOR MANUEL DPM, IRINA Q Ot G25. 81 RESTLESS LEGS SYNDROME 05/09/2017 VICTOR MANUEL DPM, IRINA Q Ot K58. 9 IRRITABLE BOWEL SYNDROME WITHOUT DIARRHE 05/09/2017 VICTOR MANUEL DPM, IRINA Q Ot K90. 9 INTESTINAL MALABSORPTION, UNSPECIFIED 05/09/2017 VICTOR MANUEL DPM, IRINA Q Ot M20. 41 OTHER HAMMER TOE(S) (ACQUIRED), RIGHT FO 05/09/2017 VICTOR MANUEL DPM, IRINA Q Ot M85. 89 OTH DISRD OF BONE DENSITY AND STRUCTURE, 05/09/2017 VICTOR MANUEL DPM, IRINA Q Ot M89.372 HYPERTROPHY OF BONE, LEFT ANKLE AND FOOT 05/09/2017 VICTOR MANUEL DPM, IRINA Q Ot R73. 03 PREDIABETES 05/09/2017 VICTOR MANUEL DPM, IRINA Q Ot Z79.899 OTHER PENITENTIARY (CURRENT) DRUG THERAPY 05/09/2017 VICTOR MANUEL DPM, IRINA Q Ot Z98. 84 BARIATRIC SURGERY STATUS 05/10/2017 VICTOR MANUEL DPM, IRINA Q Ot E03. 9 HYPOTHYROIDISM, UNSPECIFIED 05/10/2017 VICTOR MANUEL DPM, IRINA Q Ot E53. 8 DEFICIENCY OF OTHER SPECIFIED B GROUP 05/10/2017 VICTOR MANUEL DPM, IRINA Q Ot E55. 9 VITAMIN D DEFICIENCY, UNSPECIFIED 05/10/2017 VICTOR MANUEL DPM, IRINA Q Ot F31. 9 BIPOLAR DISORDER, UNSPECIFIED 05/10/2017 VICTOR MANUEL DPM, IRINA Q Ot G25. 81 RESTLESS LEGS SYNDROME 05/10/2017 VICTOR MANUEL DPM, IRINA Q Ot K58. 9 IRRITABLE BOWEL SYNDROME WITHOUT DIARRHE 05/10/2017 VICTOR MANUEL DPM, IRINA Q Ot K90. 9 INTESTINAL MALABSORPTION, UNSPECIFIED 05/10/2017 VICTOR MANUEL DPM, IRINA Q Ot M20. 41 OTHER HAMMER TOE(S) (ACQUIRED), RIGHT FO 05/10/2017 VICTOR MANUEL DPM, IRINA Q Ot M85. 89 OTH DISRD OF BONE DENSITY AND STRUCTURE, 05/10/2017 VICTOR MANUEL DPM, IRINA Q Ot M89.372 HYPERTROPHY OF BONE, LEFT ANKLE AND FOOT 05/10/2017 VICTOR MANUEL DPM, IRINA Q Ot R73. 03 PREDIABETES 05/10/2017 VICTOR MANUEL DPM, IRINA Q Ot Z79.899 OTHER PIPING ENGINEER (CURRENT) DRUG THERAPY 05/10/2017 VICTOR MANUEL DPM, IRINA Q Ot Z98. 84 BARIATRIC SURGERY STATUS 05/17/2017 VICTOR MANUEL DPM, IRINA Q Ot E03. 9 HYPOTHYROIDISM, UNSPECIFIED 05/17/2017 VICTOR MANUEL DPM, IRINA Q Ot E53. 8 DEFICIENCY OF OTHER SPECIFIED B GROUP 05/17/2017 VICTOR MANUEL DPM, IRINA Q Ot E55. 9 VITAMIN D DEFICIENCY, UNSPECIFIED 05/17/2017 VICTOR MANUEL DPM, IRINA Q Ot F31. 9 BIPOLAR DISORDER, UNSPECIFIED 05/17/2017 VICTOR MANUEL DPM, IRINA Q Ot G25. 81 RESTLESS LEGS SYNDROME 05/17/2017 VICTOR MANUEL DPM, IRINA Q Ot K58. 9 IRRITABLE BOWEL SYNDROME WITHOUT DIARRHE 05/17/2017 VICTOR MANUEL DPM, IRINA Q Ot K90. 9 INTESTINAL MALABSORPTION, UNSPECIFIED 05/17/2017 VICTOR MANUEL DPM, IRIAN Q Ot M20. 41 OTHER HAMMER TOE(S) (ACQUIRED), RIGHT FO 05/17/2017 VICTOR MANUEL DPM, IRINA Q Ot M85. 89 OTH DISRD OF BONE DENSITY AND STRUCTURE, 05/17/2017 VICTOR MANUEL DPM, IRINA Q Ot M89.372 HYPERTROPHY OF BONE, LEFT ANKLE AND FOOT 05/17/2017 VICTOR MANUEL DPM, IRINA Q Ot R73. 03 PREDIABETES 05/17/2017 VICTOR MANUEL DPM, IRINA Q Ot Z79.899 OTHER PENITENTIARY (CURRENT) DRUG THERAPY 05/17/2017 VICTOR MANUEL DPM, IRINA Q Ot Z98. 84 BARIATRIC SURGERY STATUS 05/23/2017 JAMES HONGP Ot Z12.31 ENCNTR SCREEN MAMMOGRAM FOR MALIGNANT NE 06/09/2017 JAMES HONGP Ot N64.89 OTHER SPECIFIED DISORDERS OF BREAST 07/19/2017 JAMES HONG LEGAL RECORDS MANAGER Ot G43.909 MIGRAINE, UNSP, NOT INTRACTABLE, WITHOUT 07/25/2017 Ot 553.29 LAILA TRAL HERNIA NEC 07/25/2017 Ot V72.63 PRE -PROCEDURAL LABORATORY EXAMINATION 07/25/2017 Ot V74.8 SCRE EN-BACTERIAL DIS NEC 07/25/2017 ANDREAS GILLIS DO Ot V76.12 OTH SCREEN MAMMO-MALIGN NEOPLASM OF [place] 07/25/2017 Ot 280.9 IRON DEFIC ANEMIA NOS 07/25/2017 KATHLEEN CAMPBELL DC Ot 721. 3 LUMBOSACRAL SPONDYLOSIS 07/25/2017 KATHLEEN CAMPBELL DC Ot 737. 30 IDIOPATHIC SCOLIOSIS 07/25/2017 ANDREAS GILLIS DO Ot V76.12 OTH SCREEN MAMMO-MALIGN NEOPLASM OF [place] 07/25/2017 ANDREAS GILLIS DO Ot 280.9 07/25/2017 VICTOR MANUEL DPM, IRINA Q Ot M20. 41 OTHER HAMMER TOE(S) (ACQUIRED), RIGHT FO 07/25/2017 VICTOR MANUEL DPM, IRINA Q Ot Z01.818 ENCOUNTER FOR OTHER PREPROCEDURAL EXAMIN 07/25/2017 VICTOR MANUEL DPM, IRINA Q Ot Z11. 2 ENCOUNTER FOR SCREENING FOR OTHER BACTER 07/29/2017 JAMES HONGP Ot G43.909 MIGRAINE, UNSP, NOT INTRACTABLE, WITHOUT 10/07/2017 YAMILKA HONG DO Ot I89.0 LYMPHEDEMA, NOT ELSEWHERE CLASSIFIED 10/07/2017 YAMILKA HONG DO Ot R10.2 PELVIC AND PERINEAL PAIN 10/07/2017 JAMES HONGP Ot Z12.31 ENCNTR SCREEN MAMMOGRAM FOR MALIGNANT NE 10/07/2017 HONG, JAMES L LEGAL RECORDS MANAGER Ot N64.89 OTHER SPECIFIED DISORDERS OF BREAST 10/07/2017 HAL JAMES Axel LEGAL RECORDS MANAGER Ot G43.909 MIGRAINE, UNSP, NOT INTRACTABLE, WITHOUT 10/17/2017 ROD HONGIA Axel LEGAL RECORDS MANAGER Ot D64.9 ANEMIA, UNSPECIFIED 10/19/2017 ZEYAD HONGRICIA Axel LEGAL RECORDS MANAGER Ot D64.9 ANEMIA, UNSPECIFIED 11/07/2017 YAMILKA HONG DO Ot I89.0 LYMPHEDEMA, NOT ELSEWHERE CLASSIFIED 11/07/2017 YAMILKA HONG DO Ot R10.2 PELVIC AND PERINEAL PAIN 11/07/2017 ROD HONGIA Axel LEGAL RECORDS MANAGER Ot Z12.31 ENCNTR SCREEN MAMMOGRAM FOR MALIGNANT NE 11/07/2017 JAMES HONG LEGAL RECORDS MANAGER Ot N64.89 OTHER SPECIFIED DISORDERS OF BREAST 11/07/2017 JAMES HONG LEGAL RECORDS MANAGER Ot G43.909 MIGRAINE, UNSP, NOT INTRACTABLE, WITHOUT 11/07/2017 JAMES HONG LEGAL RECORDS MANAGER Ot D64.9 ANEMIA, UNSPECIFIED 11/09/2017 ROD HONGIA Axel LEGAL RECORDS MANAGER Ot D64.9 ANEMIA, UNSPECIFIED 11/11/2017 YAMILKA HONG DO Ot N63.21 UNSPECIFIED LUMP IN THE LEFT BREAST, UPP 11/11/2017 YAMILKA HONG DO Ot N63.24 UNSPECIFIED LUMP IN THE LEFT BREAST, LOW 11/18/2017 YAMILKA HONG DO Ot I89.0 LYMPHEDEMA, NOT ELSEWHERE CLASSIFIED 11/18/2017 YAMILKA HNOG DO Ot R10.2 PELVIC AND PERINEAL PAIN 11/18/2017 JAMES HONG LEGAL RECORDS MANAGER Ot Z12.31 ENCNTR SCREEN MAMMOGRAM FOR MALIGNANT NE 11/18/2017 JAMES HONG L LEGAL RECORDS MANAGER Ot N64.89 OTHER SPECIFIED DISORDERS OF BREAST 11/18/2017 JAMES HONG LEGAL RECORDS MANAGER Ot G43.909 MIGRAINE, UNSP, NOT INTRACTABLE, WITHOUT 11/18/2017 ZEYAD HONGRICIA L LEGAL RECORDS MANAGER Ot D64.9 ANEMIA, UNSPECIFIED 11/18/2017 YAMILKA HONG DO Ot N63.21 UNSPECIFIED LUMP IN THE LEFT BREAST, UPP 11/18/2017 HONG DO, YAMILKA Anil Ot N63.24 UNSPECIFIED LUMP IN THE LEFT BREAST, LOW 11/23/2017 HONG DO, YAMILKA Ma Ot N63.21 UNSPECIFIED LUMP IN THE LEFT BREAST, UPP 11/23/2017 HONG DO, YAMILKA Ma Ot N63.24 UNSPECIFIED LUMP IN THE LEFT BREAST, LOW 12/08/2017 DANIEL MCGREGOR MD Ot D50.9 IRON DEFICIENCY ANEMIA, UNSPECIFIED 12/08/2017 DANIEL MCGREGOR MD Ot D69.6 THROMBOCYTOPENIA, UNSPECIFIED 12/08/2017 DANIEL MCGREGOR MD Ot 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 12/08/2017 DANIEL MCGREGOR MD Ot E89.0 POSTPROCEDURAL HYPOTHYROIDISM 12/08/2017 DANIEL MCGREGOR MD Ot R10.13 EPIGASTRIC PAIN 12/08/2017 DANIEL MCGREGOR MD Ot Z79.899 OTHER PIPING ENGINEER (CURRENT) DRUG THERAPY 12/08/2017 DANIEL MCGREGOR MD Ot Z85.850 PERSONAL HISTORY OF MALIGNANT NEOPLASM O 12/08/2017 DANIEL MCGREGOR MD Ot Z86.718 PERSONAL HISTORY OF OTHER VENOUS THROMBO 01/05/2018 JAMES HONG LEGAL RECORDS MANAGER Ot D64.9 ANEMIA, UNSPECIFIED 01/06/2018 JAMES HONG L LEGAL RECORDS MANAGER Ot D64.9 ANEMIA, UNSPECIFIED 01/24/2018 JAMES HONG LEGAL RECORDS MANAGER Ot G47.33 OBSTRUCTIVE SLEEP APNEA (ADULT) (PEDIATR 03/09/2018 DANIEL MCGREGOR MD Ot D50.9 IRON DEFICIENCY ANEMIA, UNSPECIFIED 03/09/2018 DANIEL MCGREGOR MD Ot D69.6 THROMBOCYTOPENIA, UNSPECIFIED 03/09/2018 DANIEL MCGREGOR MD Ot 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 03/09/2018 DANIEL MCGREGOR MD Ot E89.0 POSTPROCEDURAL HYPOTHYROIDISM 03/09/2018 DANIEL MCGREGOR MD Ot R10.13 EPIGASTRIC PAIN 03/09/2018 DANIEL MCGREGOR MD Ot Z79.899 OTHER PENITENTIARY (CURRENT) DRUG THERAPY 03/09/2018 DANIEL MCGREGOR MD Ot Z85.850 PERSONAL HISTORY OF MALIGNANT NEOPLASM O 03/09/2018 DANIEL MCGREGOR MD Ot Z86.718 PERSONAL HISTORY OF OTHER VENOUS THROMBO 03/26/2018 MECHE MD, SANCHEZ Ot D50.9 IRON DEFICIENCY ANEMIA, UNSPECIFIED 03/26/2018 DANIEL MCGREGOR MD Ot D69.6 THROMBOCYTOPENIA, UNSPECIFIED 03/26/2018 DANIEL MCGREGOR MD Ot 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 03/26/2018 DANIEL MCGREGOR MD Ot E89.0 POSTPROCEDURAL HYPOTHYROIDISM 03/26/2018 ADNIEL MCGREGOR MD Ot R10.13 EPIGASTRIC PAIN 03/26/2018 DANIEL MCGREGOR MD Ot Z79.899 OTHER PENITENTIARY (CURRENT) DRUG THERAPY 03/26/2018 DANIEL MCGREGOR MD Ot Z85.850 PERSONAL HISTORY OF MALIGNANT NEOPLASM O 03/26/2018 DANIEL MCGREGOR MD Ot Z86.718 PERSONAL HISTORY OF OTHER VENOUS THROMBO 03/29/2018 DANIEL MCGREGOR MD Ot D50.9 IRON DEFICIENCY ANEMIA, UNSPECIFIED 03/29/2018 DANIEL MCGREGOR MD Ot D69.6 THROMBOCYTOPENIA, UNSPECIFIED 03/29/2018 DANIEL MCGREGOR MD Ot 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 03/29/2018 DANIEL MCGREGOR MD Ot E89.0 POSTPROCEDURAL HYPOTHYROIDISM 03/29/2018 DANIEL MCGREGOR MD Ot R10.13 EPIGASTRIC PAIN 03/29/2018 DANIEL MCGREGOR MD Ot Z79.899 OTHER PIPING ENGINEER (CURRENT) DRUG THERAPY 03/29/2018 DANIEL MCGREGOR MD Ot Z85.850 PERSONAL HISTORY OF MALIGNANT NEOPLASM O 03/29/2018 DANIEL MCGREGOR MD Ot Z86.718 PERSONAL HISTORY OF OTHER VENOUS THROMBO 04/21/2018 ANDREAS GILLIS DO Ot V76.12 OTH SCREEN MAMMO-MALIGN NEOPLASM OF [place] 04/21/2018 Ot 280.9 IRON DEFIC ANEMIA NOS 04/21/2018 KATHLEEN CAMPBELL DC S Ot 721. 3 LUMBOSACRAL SPONDYLOSIS 04/21/2018 KATHLEEN CAMPBELL DC S Ot 737. 30 IDIOPATHIC SCOLIOSIS 04/21/2018 ANDREAS GILLIS DO Ot V76.12 OTH SCREEN MAMMO-MALIGN NEOPLASM OF [place] 04/21/2018 ANDREAS GILLIS DO Ot 280.9 04/21/2018 VICTOR MANUEL DPM, IRINA Q Ot M20. 41 OTHER HAMMER TOE(S) (ACQUIRED), RIGHT FO 04/21/2018 VICTOR MANUEL DPM, IRINA Q Ot Z01.818 ENCOUNTER FOR OTHER PREPROCEDURAL EXAMIN 04/21/2018 VICTOR MANUEL DPM, IRINA Q Ot Z11. 2 ENCOUNTER FOR SCREENING FOR OTHER BACTER 12/15/2018 JAMES HONGP Ot Z12.31 ENCNTR SCREEN MAMMOGRAM FOR MALIGNANT NE 12/26/2018 JAMES HONG Ot Z12.31 ENCNTR SCREEN MAMMOGRAM FOR MALIGNANT NE 02/18/2019 MARIBEL GUZMÁN MD Ot M54.16 RADICULOPATHY, LUMBAR REGION 02/18/2019 MARIBEL GUZMÁN MD Ot M54.5 LOW BACK PAIN 02/18/2019 MARIBEL GUZMÁN MD Ot Z85.850 PERSONAL HISTORY OF MALIGNANT NEOPLASM O 02/18/2019 MARIBEL GUZMÁN MD Ot Z86.718 PERSONAL HISTORY OF OTHER VENOUS THROMBO 02/18/2019 MARIBEL GUZMÁN MD Ot Z88.0 ALLERGY STATUS TO PENICILLIN 02/18/2019 MARIBEL GUZMÁN MD Ot Z88.5 ALLERGY STATUS TO NARCOTIC AGENT STATUS 02/18/2019 MARIBEL GUZMÁN MD Ot Z98.890 OTHER SPECIFIED POSTPROCEDURAL STATES 02/21/2019 MARIBEL GUZMÁN MD Ot M54.16 RADICULOPATHY, LUMBAR REGION 02/21/2019 MARIBEL GUZMÁN MD Ot M54.5 LOW BACK PAIN 02/21/2019 MARIBEL GUZMÁN MD Ot Z85.850 PERSONAL HISTORY OF MALIGNANT NEOPLASM O 02/21/2019 MARIBEL GUZMÁN MD Ot Z86.718 PERSONAL HISTORY OF OTHER VENOUS THROMBO 02/21/2019 MARIBEL GUZMÁN MD Ot Z88.0 ALLERGY STATUS TO PENICILLIN 02/21/2019 MARIBEL GUZMÁN MD Ot Z88.5 ALLERGY STATUS TO NARCOTIC AGENT STATUS 02/21/2019 MARIBEL GUZMÁN MD Ot Z98.890 OTHER SPECIFIED POSTPROCEDURAL STATES 09/21/2019 Ot E89.0 POST PROCEDURAL HYPOTHYROIDISM 09/21/2019 Ot F32.9 DEN R DEPRESSIVE DISORDER, SINGLE EPISOD 09/21/2019 Ot G47.9 SLEE P DISORDER, UNSPECIFIED 09/21/2019 Ot J30.2 OTHE R SEASONAL ALLERGIC RHINITIS 09/21/2019 Ot M85.80 OTH DISRD OF BONE DENSITY AND STRUCTURE, 09/21/2019 Ot R09.02 HYP OXEMIA 09/21/2019 Ot R40.1 STUPOR 09/21/2019 Ot T50.904A P OISONING BY UNSP DRUG/MEDS/BIOL SUBST, 09/21/2019 Ot Z86.718 PE RSONAL HISTORY OF OTHER VENOUS THROMBO 09/21/2019 Ot E89.0 POST PROCEDURAL HYPOTHYROIDISM 09/21/2019 Ot F32.9 DEN R DEPRESSIVE DISORDER, SINGLE EPISOD 09/21/2019 Ot F41.9 ANXI ETY DISORDER, UNSPECIFIED 09/21/2019 Ot G47.9 SLEE P DISORDER, UNSPECIFIED 09/21/2019 Ot J30.2 OTHE R SEASONAL ALLERGIC RHINITIS 09/21/2019 Ot J96.01 ACU TE RESPIRATORY FAILURE WITH HYPOXIA 09/21/2019 Ot M85.80 OTH DISRD OF BONE DENSITY AND STRUCTURE, 09/21/2019 Ot R09.02 HYP OXEMIA 09/21/2019 Ot R40.1 STUPOR 09/21/2019 Ot T42.71XA P [facility]-HYPNTC 09/21/2019 Ot T50.904A P OISONING BY UNS DRUG/MEDS/BIOL SUBST, 09/21/2019 Ot Z86.718 PE RSONAL HISTORY OF OTHER VENOUS THROMBO 09/21/2019 Ot Z98.84 BAR IATRIC SURGERY STATUS 09/21/2019 Ot E89.0 POST PROCEDURAL HYPOTHYROIDISM 09/21/2019 Ot F32.9 DEN R DEPRESSIVE DISORDER, SINGLE EPISOD 09/21/2019 Ot G47.9 SLEE P DISORDER, UNSPECIFIED 09/21/2019 Ot J30.2 OTHE R SEASONAL ALLERGIC RHINITIS 09/21/2019 Ot M85.80 OTH DISRD OF BONE DENSITY AND STRUCTURE, 09/21/2019 Ot R09.02 HYP OXEMIA 09/21/2019 Ot R40.1 STUPOR 09/21/2019 Ot T50.904A P OISONING BY UNSP DRUG/MEDS/BIOL SUBST, 09/21/2019 Ot 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 3 LUMBOSACRAL SPONDYLOSIS 09/28/2019 LONG DC, KATHLEEN S Ot 737. 30 IDIOPATHIC SCOLIOSIS 09/28/2019 GILLIS DO, ANDREAS Ot V76.12 OTH SCREEN MAMMO-MALIGN NEOPLASM OF MAURY 09/28/2019 GILLIS DO, ANDREAS Ot 280.9 09/28/2019 VICTOR MANUEL DPM, IRINA Q Ot M20. 41 OTHER HAMMER TOE(S) (ACQUIRED), RIGHT FO 09/28/2019 VICTOR MANUEL DPM, IRINA Q Ot Z01.818 ENCOUNTER FOR OTHER PREPROCEDURAL EXAMIN 09/28/2019 VICTOR MANUEL DPM, IRINA Q Ot Z11. 2 ENCOUNTER FOR SCREENING FOR OTHER BACTER 09/28/2019 Ot Z01.89 ENC OUNTER FOR OTHER SPECIFIED SPECIAL EX 10/11/2019 Ot Z01.89 ENC OUNTER FOR OTHER SPECIFIED SPECIAL EX 11/16/2019 SUNDEEP RIVERA MD Ot G60.3 IDIOPATHIC PROGRESSIVE NEUROPATHY 11/16/2019 SUNDEEP RIVERA MD Ot G93.8 9 OTHER SPECIFIED DISORDERS OF BRAIN 11/16/2019 SUNDEEP RIVERA MD Ot R40.1 STUPOR Procedures Code Description Performed By Per karlos On [id number] IN SERTION OF ENDOTRACHEAL AIRWAY INTO TR 09/20/2019 [id number] RE SPIRATORY VENTILATION, LESS THAN 24 CO 09/20/2019 Results Test Result Range Complete blood count (CBC) with automate d white blood cell (WBC) differential - 03/16/16 13:27 Blood leukocytes automated count (number/volume) 2.6 10*3/uL 4.3-11.0 Blood erythrocytes automated count (number/volume) 4.64 10*6/uL 4.35-5.85 Venous blood hemoglobin measurement (mass/volume) 14.1 g/dL 11.5-16.0 Blood hematocrit (volume fraction) 41 % 35-52 Automated erythrocyte mean corpuscular volume 89 [ foz_us] 80-99 Automated erythrocyte mean corpuscular h emoglobin (mass per erythrocyte) 30 pg 25-34 Automated erythrocyte mean corpuscular h emoglobin concentration measurement (mass/volume) 34 g/dL 32-36 Automated erythrocyte distribution width ratio 13. 3 % 10.0- 14.5 Automated blood platelet count (count/volume) 143 10*3/uL 130-400 Automated blood platelet mean volume measurement 11.4 [foz_us] 7.4-10.4 Automated blood neutrophils/100 leukocytes 57 % 42-75 Automated blood lymphocytes/100 leukocytes 28 % 12-44 Blood monocytes/100 leukocytes 9 % 0-12 Automated blood eosinophils/100 leukocytes 5 % 0-10 Automated blood basophils/100 leukocytes 0 % 0-10 Blood neutrophils automated count (number/volume) 1.5 10*3 1.8-7.8 Blood lymphocytes automated count (number/volume) 0.7 10*3 1.0-4.0 Blood monocytes automated count (number/volume) 0. 2 10*3 0.0-1.0 Automated eosinophil count 0.1 10*3/uL 0 .0-0.3 Automated blood basophil count (count/volume) 0.0 10*3/uL 0.0-0.1 PT panel in platelet poor plasma by coag ulation assay - 03/16/16 13:27 Prothrombin time (PT) in platelet poor plasma by coagu lation assay 13.0 s 12.2-14.7 INR in platelet poor plasma or blood by coagulation as say 1.0 0.8-1.4 Activated partial thromboplastin time (a PTT) in platelet poor plasma bycoagulation assay - 03/16/16 13:27 Activated partial thromboplastin time (a PTT) in platelet poor plasma bycoagulation assay 21 s 24-35 Comprehensive metabolic panel - 03/16/16 13:27 Serum or plasma sodium measurement (moles/volume) 140 mmol/L 135-145 Serum or plasma potassium measurement (moles/volume) 3.6 mmol/L 3.6-5.0 Serum or plasma chloride measurement (moles/volume) 107 mmol/L 98-107 Carbon dioxide 24 mmol/L 21-32 Serum or plasma anion gap determination (moles/volume) 9 mmol/L 5-14 Serum or plasma urea nitrogen measurement (mass/volume ) 8 mg/dL 7-18 Serum or plasma creatinine measurement (mass/volume) 0.80 mg/dL 0.60-1.30 Serum or plasma urea nitrogen/creatinine mass ratio 10 NRG Serum or plasma creatinine measurement w ith calculation of estimated glomerular filtration rate > NRG Serum or plasma glucose measurement (mass/volume) 130 mg/dL 70-105 Serum or plasma calcium measurement (mass/volume) 8.5 mg/dL 8.5-10.1 Serum or plasma total bilirubin measurement (mass/volu me) 0.7 mg/dL 0.1-1.0 Serum or plasma alkaline phosphatase beatriz surement (enzymatic activity/volume) 90 U/L 40-136 Serum or plasma aspartate aminotransfera se measurement (enzymatic activity/volume) 36 U/L 5-34 Serum or plasma alanine aminotransferase measurement (enzymatic activity/volume) 42 U/L 0-55 Serum or plasma protein measurement (mass/volume) 5.6 g/dL 6.4-8.2 Serum or plasma albumin measurement (mass/volume) 3.7 g/dL 3.2-4.5 Magnesium - 03/16/16 13:27 Magnesium 1.8 mg/dL 1.8-2.4 Serum or plasma troponin i.cardiac measu rement (mass/volume) - 03/16/16 13:27 Serum or plasma troponin i.cardiac measurement (mass/v olume) < ng/mL <0.30 Myoglobin, serum - 03/16/16 13:27 Myoglobin, serum 23.8 ng/mL 10.0-92.0 Lipase - 03/16/16 13:27 Lipase 10 U/L 8-78 THYROID STIMULATING HORMONE - 03/16/16 1 3:27 THYROID STIMULATING HORMONE 0.64 u[iU]/mL 0.35-4.94 Serum or plasma thyroxine (T4) free maged urement (mass/volume) - 03/16/16 13:27 Serum or plasma thyroxine (T4) free measurement (mass/ volume) 0.90 ng/dL 0.70-1.48 Complete urinalysis with reflex to cultu re - 03/16/16 14:29 Urine color determination YELLOW NRG Urine clarity determination CLEAR NR G Urine pH measurement by test strip 5 5-9 Specific gravity of urine by test strip 1.010 1.016-1.022 Urine protein assay by test strip, semi-quantitative NEGATIVE NEGATIVE Urine glucose detection by automated test strip NE GATIVE NEGATIVE Erythrocytes detection in urine sediment by light micr oscopy NEGATIVE NEGATIVE Urine ketones detection by automated test strip NE GATIVE NEGATIVE Urine nitrite detection by test strip NEGATIVE NEGATIVE Urine total bilirubin detection by test strip NEGA TIVE NEGATIVE Urine urobilinogen measurement by automated test strip (mass/volume) NORMAL NORMAL Urine leukocyte esterase detection by dipstick NEG ATIVE NEGATIVE Automated urine sediment erythrocyte cou nt by microscopy (number/high power field) NONE NRG Automated urine sediment leukocyte count by microscopy (number/high power field) [HPF] NRG Bacteria detection in urine sediment by light microsco py FEW NRG Squamous epithelial cells detection in u rine sediment by light microscopy 5-10 NRG Crystals detection in urine sediment by light microsco py NONE NRG Casts detection in urine sediment by light microscopy NONE NRG Mucus detection in urine sediment by light microscopy SMALL NRG Complete urinalysis with reflex to culture NO NRG Stool occult blood screen - 07/19/16 10: 30 Stool gastrointestinal hemoglobin detection NEGATI VE NEGATIVE C DIFFICILE AG + TOXIN A/B. - 07/19/16 1 0:30 C DIFFICILE AG + TOXIN A/B. TNP NR G Urine 5-hydroxyindoleacetate measurement (mass/volume) - 07/19/16 10:30 Urine volume measurement RANDOM NRG Confirmatory urine 5-hydroxyindole aceti c acid (5-HIAA) measurement (mass/volume) 4.9 mg/L NRG 24 hour urine serotonin measurement (mass/time) 10 mg/g{Cre} 0-14 Interpretation of urine 5-hydroxyindole acetic acid (HIAA) measurement SEE FOOTNOTE NRG Creatinine measurement (moles/volume) 49 mg/dL NRG Stool bacteria identification by culture - 07/19/16 10:30 Stool bacteria identification by culture N2 NRG Ova and parasites - 07/19/16 10:30 DATE OF REF LAB REPORT 07/28/16 11:50 NRG OTP NEGATIVE RESULT PARASITES NOT FOUND NRG OP FREE TEXT REPORTABLE RED BLOOD CELLS PRESENT NRG Ova and parasites - 07/21/16 08:28 DATE OF REF LAB REPORT 07/28/16 11:55 NRG OTP NEGATIVE RESULT PARASITES NOT FOUND NRG Ova and parasites - 07/26/16 06:30 DATE OF REF LAB REPORT 08/04/16 15:00 NRG OTP NEGATIVE RESULT PARASITES NOT FOUND NRG Methicillin resistant Staphylococcus aur eus (MRSA) screening culture - 04/26/17 12:34 Methicillin resistant Staphylococcus aureus (MRSA) scr eening culture NEG NRG Urine beta human chorionic gonadotropin (hCG) measurement - 05/09/17 10:25 Urine beta human chorionic gonadotropin (hCG) measurem ent NEGATIVE NEGATIVE [id number] - 07/18/17 09:04 Serum or plasma urea nitrogen measurement (mass/volume ) 10 mg/dL 7-18 Serum or plasma creatinine measurement (mass/volume) 0.78 mg/dL 0.60-1.30 Serum or plasma urea nitrogen/creatinine mass ratio 13 NRG Serum or plasma creatinine measurement w ith calculation of estimated glomerular filtration rate > NRG Complete blood count (CBC) with automate d white blood cell (WBC) differential - 10/07/17 13:58 Blood leukocytes automated count (number/volume) 4.6 10*3/uL 4.3-11.0 Blood erythrocytes automated count (number/volume) 4.58 10*6/uL 4.35-5.85 Venous blood hemoglobin measurement (mass/volume) 12.2 g/dL 11.5-16.0 Blood hematocrit (volume fraction) 38 % 35-52 Automated erythrocyte mean corpuscular volume 83 [ foz_us] 80-99 Automated erythrocyte mean corpuscular h emoglobin (mass per erythrocyte) 27 pg 25-34 Automated erythrocyte mean corpuscular h emoglobin concentration measurement (mass/volume) 32 g/dL 32-36 Automated erythrocyte distribution width ratio 14. 9 % 10.0- 14.5 Automated blood platelet count (count/volume) 184 10*3/uL 130-400 Automated blood platelet mean volume measurement 11.7 [foz_us] 7.4-10.4 Automated blood neutrophils/100 leukocytes 62 % 42-75 Automated blood lymphocytes/100 leukocytes 28 % 12-44 Blood monocytes/100 leukocytes 10 % 0-12 Automated blood eosinophils/100 leukocytes 1 % 0-10 Automated blood basophils/100 leukocytes 0 % 0-10 Blood neutrophils automated count (number/volume) 2.8 10*3 1.8-7.8 Blood lymphocytes automated count (number/volume) 1.3 10*3 1.0-4.0 Blood monocytes automated count (number/volume) 0. 5 10*3 0.0-1.0 Automated eosinophil count 0.0 10*3/uL 0 .0-0.3 Automated blood basophil count (count/volume) 0.0 10*3/uL 0.0-0.1 Serum iron and total iron binding capaci ty panel - 10/07/17 13:58 Serum or plasma iron measurement (mass/volume) 20 % 35-180 Total iron binding capacity and transferrin saturation measurement 5 % 15-50 Iron binding capacity [mass/volume] in serum or plasma 432 % 280-380 UIBC (unsaturated iron binding capacity) 412 % 55-450 Serum or plasma ferritin measurement (mass/volume) 8.0 % 15.0-150.0 Automated blood complete blood count (he mogram) panel - 10/14/17 13:30 Blood leukocytes automated count (number/volume) 4.0 10*3/uL 4.3-11.0 Blood erythrocytes automated count (number/volume) 4.47 10*6/uL 4.35-5.85 Venous blood hemoglobin measurement (mass/volume) 11.9 g/dL 11.5-16.0 Blood hematocrit (volume fraction) 37 % 35-52 Automated erythrocyte mean corpuscular volume 83 [ foz_us] 80-99 Automated erythrocyte mean corpuscular h emoglobin (mass per erythrocyte) 27 pg 25-34 Automated erythrocyte mean corpuscular h emoglobin concentration measurement (mass/volume) 32 g/dL 32-36 Automated erythrocyte distribution width ratio 15. 7 % 10.0- 14.5 Automated blood platelet count (count/volume) 182 10*3/uL 130-400 Automated blood platelet mean volume measurement 11.5 [foz_us] 7.4-10.4 IRON TEST - 10/14/17 13:30 Serum or plasma iron measurement (mass/volume) 83 % 35-180 Complete blood count (CBC) with automate d white blood cell (WBC) differential - 10/19/17 12:55 Blood leukocytes automated count (number/volume) 5.2 10*3/uL 4.3-11.0 Blood erythrocytes automated count (number/volume) 4.95 10*6/uL 4.35-5.85 Venous blood hemoglobin measurement (mass/volume) 13.4 g/dL 11.5-16.0 Blood hematocrit (volume fraction) 41 % 35-52 Automated erythrocyte mean corpuscular volume 82 [ foz_us] 80-99 Automated erythrocyte mean corpuscular h emoglobin (mass per erythrocyte) 27 pg 25-34 Automated erythrocyte mean corpuscular h emoglobin concentration measurement (mass/volume) 33 g/dL 32-36 Automated erythrocyte distribution width ratio 16. 4 % 10.0- 14.5 Automated blood platelet count (count/volume) 199 10*3/uL 130-400 Automated blood platelet mean volume measurement 11.5 [foz_us] 7.4-10.4 Automated blood neutrophils/100 leukocytes 66 % 42-75 Automated blood lymphocytes/100 leukocytes 26 % 12-44 Blood monocytes/100 leukocytes 7 % 0-12 Automated blood eosinophils/100 leukocytes 1 % 0-10 Automated blood basophils/100 leukocytes 0 % 0-10 Blood neutrophils automated count (number/volume) 3.5 10*3 1.8-7.8 Blood lymphocytes automated count (number/volume) 1.4 10*3 1.0-4.0 Blood monocytes automated count (number/volume) 0. 3 10*3 0.0-1.0 Automated eosinophil count 0.0 10*3/uL 0 .0-0.3 Automated blood basophil count (count/volume) 0.0 10*3/uL 0.0-0.1 Serum iron and total iron binding capaci ty panel - 10/19/17 12:55 Serum or plasma iron measurement (mass/volume) 92 % 35-180 Total iron binding capacity and transferrin saturation measurement 27 % 15-50 Iron binding capacity [mass/volume] in serum or plasma 335 % 280-380 UIBC (unsaturated iron binding capacity) 243 % 55-450 Serum or plasma ferritin measurement (mass/volume) 473.0 % 15.0-150.0 Blood methemoglobin/total hemoglobin - 0 09/20/19 01:20 Blood methemoglobin/total hemoglobin 0.7 % 0.4-1.5 Complete blood count (CBC) with automate d white blood cell (WBC) differential - 09/20/19 21:00 Blood leukocytes automated count (number/volume) 3.5 10*3/uL 4.3-11.0 Blood erythrocytes automated count (number/volume) 4.27 10*6/uL 4.35-5.85 Venous blood hemoglobin measurement (mass/volume) 12.4 g/dL 11.5-16.0 Blood hematocrit (volume fraction) 38 % 35-52 Automated erythrocyte mean corpuscular volume 89 [ foz_us] 80-99 Automated erythrocyte mean corpuscular h emoglobin (mass per erythrocyte) 29 pg 25-34 Automated erythrocyte mean corpuscular h emoglobin concentration measurement (mass/volume) 33 g/dL 32-36 Automated erythrocyte distribution width ratio 13. 9 % 10.0- 14.5 Automated blood platelet count (count/volume) 143 10*3/uL 130-400 Automated blood platelet mean volume measurement 11.0 [foz_us] 7.4-10.4 Automated blood neutrophils/100 leukocytes 46 % 42-75 Automated blood lymphocytes/100 leukocytes 44 % 12-44 Blood monocytes/100 leukocytes 7 % 0-12 Automated blood eosinophils/100 leukocytes 3 % 0-10 Automated blood basophils/100 leukocytes 1 % 0-10 Blood neutrophils automated count (number/volume) 1.6 10*3 1.8-7.8 Blood lymphocytes automated count (number/volume) 1.5 10*3 1.0-4.0 Blood monocytes automated count (number/volume) 0. 3 10*3 0.0-1.0 Automated eosinophil count 0.1 10*3/uL 0 .0-0.3 Automated blood basophil count (count/volume) 0.0 10*3/uL 0.0-0.1 Serum or plasma choriogonadotropin (preg shailesh test) detection - 09/20/19 21:00 Serum or plasma choriogonadotropin ( test) de tection NEGATIVE NEGATIVE Comprehensive metabolic panel - 09/20/19 21:00 Serum or plasma sodium measurement (moles/volume) 145 mmol/L 135-145 Serum or plasma potassium measurement (moles/volume) 3.9 mmol/L 3.6-5.0 Serum or plasma chloride measurement (moles/volume) 112 mmol/L 98-107 Carbon dioxide 23 mmol/L 21-32 Serum or plasma anion gap determination (moles/volume) 10 mmol/L 5-14 Serum or plasma urea nitrogen measurement (mass/volume ) 9 mg/dL 7-18 Serum or plasma creatinine measurement (mass/volume) 0.79 mg/dL 0.60-1.30 Serum or plasma urea nitrogen/creatinine mass ratio 11 NRG Serum or plasma creatinine measurement w ith calculation of estimated glomerular filtration rate > NRG Serum or plasma glucose measurement (mass/volume) 95 mg/dL 70-105 Serum or plasma calcium measurement (mass/volume) 8.5 mg/dL 8.5-10.1 Serum or plasma total bilirubin measurement (mass/volu me) 0.4 mg/dL 0.1-1.0 Serum or plasma alkaline phosphatase beatriz surement (enzymatic activity/volume) 98 U/L 40-136 Serum or plasma aspartate aminotransfera se measurement (enzymatic activity/volume) 163 U/L 5-34 Serum or plasma alanine aminotransferase measurement (enzymatic activity/volume) 79 U/L 0-55 Serum or plasma protein measurement (mass/volume) 5.9 g/dL 6.4-8.2 Serum or plasma albumin measurement (mass/volume) 3.9 g/dL 3.2-4.5 CALCIUM CORRECTED 8.6 mg/dL 8.5-10.1 Magnesium - 09/20/19 21:00 Magnesium 2.3 mg/dL 1.6-2.4 Serum or plasma thyroxine (T4) free maged urement (mass/volume) - 09/20/19 21:00 Serum or plasma thyroxine (T4) free measurement (mass/ volume) 0.71 ng/dL 0.70-1.48 Serum or plasma thyrotropin measurement by detection limit <=0.05 miu/l (units/volume) - 09/20/19 21:00 Serum or plasma thyrotropin measurement by detection limit <=0.05 miu/l (units/volume) 20.54 u[iU]/mL 0.35-4.94 Serum or plasma salicylates measurement (mass/volume) - 09/20/19 21:00 Serum or plasma salicylates measurement (mass/volume) < mg/dL 5.0-20.0 Serum or plasma acetaminophen measuremen t (mass/volume) - 09/20/19 21:00 Serum or plasma acetaminophen measurement (mass/volume ) < ug/mL 10-30 Serum or plasma triglyceride measurement (mass/volume) - 09/20/19 21:00 Serum or plasma triglyceride measurement (mass/volume) 67 mg/dL <150 THYROID STIMULATING HORMONE - 09/20/19 2 1:00 THYROID STIMULATING HORMONE 20.54 u[iU]/mL 0.35-4.94 Serum or plasma thyroxine (T4) free maged urement (mass/volume) - 09/20/19 21:00 Serum or plasma thyroxine (T4) free measurement (mass/ volume) 0.71 ng/dL 0.70-1.48 Serum or plasma ethanol measurement (mas s/volume) - 09/20/19 21:00 Serum or plasma ethanol measurement (mass/volume) 105 mg/dL <10 Urine drug screening test - 09/20/19 21: 05 Urine phencyclidine detection by screening method NEGATIVE NEGATIVE Urine benzodiazepines detection by screening method NEGATIVE NEGATIVE Urine cocaine detection NEGATIVE NEGATI VE Urine amphetamines detection by screening method P OSITIVE NEGATIVE Urine methamphetamine detection by screening method NEGATIVE NEGATIVE Urine cannabinoids detection by screening method N EGATIVE NEGATIVE Urine opiates detection by screening method NEGATI VE NEGATIVE Urine barbiturates detection NEGATIVE N EGATIVE Screening urine tricyclic antidepressants detection NEGATIVE NEGATIVE Urine methadone detection by screening method NEGA TIVE NEGATIVE Urine oxycodone detection NEGATIVE NEGA TIVE Urine propoxyphene detection NEGATIVE N EGATIVE Complete urinalysis with reflex to cultu re - 09/20/19 21:05 Urine color determination YELLOW NRG Urine clarity determination CLEAR NR G Urine pH measurement by test strip 7.0 5-9 Specific gravity of urine by test strip 1.010 1.016-1.022 Urine protein assay by test strip, semi-quantitative NEGATIVE NEGATIVE Urine glucose detection by automated test strip NE GATIVE NEGATIVE Erythrocytes detection in urine sediment by light micr oscopy NEGATIVE NEGATIVE Urine ketones detection by automated test strip NE GATIVE NEGATIVE Urine nitrite detection by test strip NEGATIVE NEGATIVE Urine total bilirubin detection by test strip NEGA TIVE NEGATIVE Urine urobilinogen measurement by automated test strip (mass/volume) 0.2 mg/dL < = 1.0 Urine leukocyte esterase detection by dipstick NEG ATIVE NEGATIVE Automated urine sediment erythrocyte cou nt by microscopy (number/high power field) NONE NRG Automated urine sediment leukocyte count by microscopy (number/high power field) NONE NRG Bacteria detection in urine sediment by light microsco py NEGATIVE NRG Crystals detection in urine sediment by light microsco py NONE NRG Casts detection in urine sediment by light microscopy NONE NRG Mucus detection in urine sediment by light microscopy NEGATIVE NRG Complete urinalysis with reflex to culture NO NRG Methicillin resistant Staphylococcus aur eus (MRSA) screening culture - 09/21/19 00:30 Methicillin resistant Staphylococcus aureus (MRSA) scr eening culture NEG NRG Complete blood count (CBC) with automate d white blood cell (WBC) differential - 09/21/19 01:00 Blood leukocytes automated count (number/volume) 3.8 10*3/uL 4.3-11.0 Blood erythrocytes automated count (number/volume) 4.05 10*6/uL 4.35-5.85 Venous blood hemoglobin measurement (mass/volume) 12.1 g/dL 11.5-16.0 Blood hematocrit (volume fraction) 37 % 35-52 Automated erythrocyte mean corpuscular volume 92 [ foz_us] 80-99 Automated erythrocyte mean corpuscular h emoglobin (mass per erythrocyte) 30 pg 25-34 Automated erythrocyte mean corpuscular h emoglobin concentration measurement (mass/volume) 33 g/dL 32-36 Automated erythrocyte distribution width ratio 14. 0 % 10.0- 14.5 Automated blood platelet count (count/volume) 29 1 0*3/uL 130-400 Automated blood platelet mean volume measurement 11.6 [foz_us] 7.4-10.4 Automated blood neutrophils/100 leukocytes 64 % 42-75 Automated blood lymphocytes/100 leukocytes 30 % 12-44 Blood monocytes/100 leukocytes 4 % 0-12 Automated blood eosinophils/100 leukocytes 2 % 0-10 Automated blood basophils/100 leukocytes 1 % 0-10 Blood neutrophils automated count (number/volume) 2.4 10*3 1.8-7.8 Blood lymphocytes automated count (number/volume) 1.1 10*3 1.0-4.0 Blood monocytes automated count (number/volume) 0. 1 10*3 0.0-1.0 Automated eosinophil count 0.1 10*3/uL 0 .0-0.3 Automated blood basophil count (count/volume) 0.0 10*3/uL 0.0-0.1 Comprehensive metabolic panel - 09/21/19 01:00 Serum or plasma sodium measurement (moles/volume) 141 mmol/L 135-145 Serum or plasma potassium measurement (moles/volume) 4.5 mmol/L 3.6-5.0 Serum or plasma chloride measurement (moles/volume) 115 mmol/L 98-107 Carbon dioxide 13 mmol/L 21-32 Serum or plasma anion gap determination (moles/volume) 13 mmol/L 5-14 Serum or plasma urea nitrogen measurement (mass/volume ) 8 mg/dL 7-18 Serum or plasma creatinine measurement (mass/volume) 0.78 mg/dL 0.60-1.30 Serum or plasma urea nitrogen/creatinine mass ratio 10 NRG Serum or plasma creatinine measurement w ith calculation of estimated glomerular filtration rate > NRG Serum or plasma glucose measurement (mass/volume) 85 mg/dL 70-105 Serum or plasma calcium measurement (mass/volume) 7.6 mg/dL 8.5-10.1 Serum or plasma total bilirubin measurement (mass/volu me) 0.5 mg/dL 0.1-1.0 Serum or plasma alkaline phosphatase beatriz surement (enzymatic activity/volume) 93 U/L 40-136 Serum or plasma aspartate aminotransfera se measurement (enzymatic activity/volume) 262 U/L 5-34 Serum or plasma alanine aminotransferase measurement (enzymatic activity/volume) 115 U/L 0-55 Serum or plasma protein measurement (mass/volume) 5.4 g/dL 6.4-8.2 Serum or plasma albumin measurement (mass/volume) 3.2 g/dL 3.2-4.5 CALCIUM CORRECTED 8.2 mg/dL 8.5-10.1 Serum or plasma phosphate measurement (m ass/volume) - 09/21/19 01:10 Serum or plasma phosphate measurement (mass/volume) 3.3 mg/dL 2.3-4.7 Magnesium - 09/21/19 01:10 Magnesium 2.0 mg/dL 1.6-2.4 Sputum Gram stain - 09/21/19 02:20 Sputum Gram stain IN [facility] Bacterial sputum culture - 09/21/19 02:2 0 QUANTITY OF GROWTH Rare NRG Bacterial sputum culture [id number] NR Arterial blood gas measurement - 0 03:45 Blood pCO2 32 mm[Hg] 35-45 Blood pO2 177 mm[Hg] 79-93 Arterial blood bicarbonate measurement (moles/volume) 24 mmol/L 23-27 Arterial blood base excess by calculation 0.6 mmol /L -2.5-2.5 Arterial blood oxygen saturation measurement 100 % 94-100 * Inhaled oxygen flow rate 12 NRG Arterial blood pH measurement with patient temperature correction 7.48 7.37-7.43 Arterial blood carbon dioxide, total measurement (mole s/volume) 24.9 mmol/L 21.0-31.0 Body site RIGHT RADIAL NRG Assessment of wrist artery patency prior to arterial p uncture POSITIVE NRG Setting of ventilation mode YES NR G Measurement of body temperature 36.2 NRG [id number] - 09/21/19 08:50 Prothrombin time (PT) in platelet poor plasma by coagu lation assay 13.5 s 12.2-14.7 INR in platelet poor plasma or blood by coagulation as say 1.0 0.8-1.4 Activated partial thromboplastin time (a PTT) in platelet poor plasma bycoagulation assay 30 s 24-35 Fibrin D-dimer FEU measurement in platelet poor plasma (mass/volume) 2.24 ug/mL 0.00-0.49 Fibrinogen measurement in platelet poor plasma by coagulation assay (mass/volume) 318 mg/dL 221-496 Automated blood platelet count (count/vo lume) - 09/21/19 08:50 Automated blood platelet count (count/volume) 110 10*3/uL 130-400 Streptococcus pyogenes antigen detection - 09/26/19 10:00 Streptococcus pyogenes antigen detection NEGATIVE NEGATIVE Bacterial throat culture - 09/26/19 10:0 0 Bacterial throat culture NBS NR Coronavirus SARS-CoV-2 SO 2018 - 0 07:55 Coronavirus Ab [Units/volume] in Serum Negative Negative Encounters ACCT No. Visit Date/Time Discharge Status Pt. Type Provider Facility Loc./Unit Complaint [id number] 12/11/2019 05:33:00 020 15:09:00 DIS Outpatient ALEXX ACOSTA MD Via [facility] PREOP COLONOSCOPY/EGD [id number] 11/13/2019 11:24:00 23:59:59 CLS Outpatient SUNDEEP RIVERA MD Via [facility] RAD IDIOPATHIC PROGRESSIVE NEUROPATHY [id number] 02/18/2019 02:04:00 03:58:00 DIS Emergency MARIBEL GUZMÁN MD Via [facility] ER BACK PAIN [id number] 12/14/2018 15:16:00 23:59:59 CLS Outpatient JAMES HONG Via [facility] RAD SCREENING [id number] 12/12/2018 09:39:00 23:59:59 CLS Preadmit JAMES HONG Via [facility] RAD AT RISK-FINDING S [id number] 03/27/2018 01:10:00 018 23:59:59 CLS Preadmit DANIEL MCGREGOR MD [facility] ONC [id number] 03/17/2018 10:47:00 018 00:01:00 DIS Outpatient DANIEL MCGREGOR MD [facility] ONC [id number] 11/18/2017 08:25:00 018 00:01:00 DIS Outpatient DANIEL MCGREGOR MD, [facility] ONC [id number] 01/23/2018 16:00:00 018 16:25:00 DIS Outpatient JAMES HONG Via [facility] SLEEP OBSTRUCTIVE SLE EP APNEA [id number] 01/06/2018 00:10:00 018 23:59:59 CLS Preadmit JAMES HONG LEGAL RECORDS MANAGER Via [facility] ANEMIA [id number] 10/19/2017 12:41:00 018 00:01:00 DIS Outpatient JAMES HONG LEGAL RECORDS MANAGER Via [facility] ANEMIA [id number] 11/10/2017 09:54:00 018 23:59:59 CLS Outpatient YAMILKA HONG DO Via [facility] RAD LT NODULE [id number] 07/18/2017 08:09:00 018 23:59:59 CLS Outpatient JAMES HONG LEGAL RECORDS MANAGER Via [facility] RAD MIGRAINES [id number] 05/23/2017 09:17:00 017 23:59:59 CLS Outpatient JAMES HONG LEGAL RECORDS MANAGER Via [facility] RAD ABNORMAL MAMMO FINDINGS [id number] 05/09/2017 10:20:00 017 16:28:00 DIS Outpatient VICTOR MANUEL DPM, IRINA Q [facility] HAMMERTOES RIGHT SECOND AND THIRD TOE [id number] 05/03/2017 09:33:00 23:59:59 CLS Outpatient JAMES HONG LEGAL RECORDS MANAGER [facility] RAD SCREENING [id number] 04/26/2017 12:18:00 12:37:00 DIS Outpatient VICTOR MANUEL DPM, IRINA Q [facility] PREOP HAMMERTOES [id number] 03/05/2017 14:41:00 17:03:00 DIS Emergency FELIPA WELLS [facility] ER HEAD PAIN/INJ [id number] 10/18/2016 00:11:00 23:59:59 CLS Preadmit JAMES HONG LEGAL RECORDS MANAGER [facility] LAB CHRONIC IBS/FEV ER [id number] 07/26/2016 09:20:00 00:01:00 DIS Outpatient JAMES HONG LEGAL RECORDS MANAGER [facility] LAB CHRONIC IBS/FEV ER [id number] 03/16/2016 13:11:00 15:45:00 DIS Emergency TERRI LAMAR, KATHARINA Cuellar [facility] ER SYNCOPAL EPISOD E [id number] 12/22/2015 16:03:00 23:59:59 CLS Outpatient YAMILKA HONG DO [facility] RAD PELVIC PAIN [id number] 12/10/2015 07:55:00 10:30:00 DIS Outpatient CALLI LEMUS MD [facility] SDC HYPERTHYROID [id number] 12/08/2015 14:26:00 12:19:00 DIS Outpatient CALLI LEMUS MD [facility] PREOP HYPERTHYROID [id number] 12/08/2015 14:31:00 23:59:59 CLS Outpatient JAMES HONG LEGAL RECORDS MANAGER [facility] LAB HX DVT [id number] 12/04/2015 09:42:00 23:59:59 CLS Outpatient CALLI LEMUS MD [facility] RAD LEFT THYROID NODULE [id number] 11/25/2015 10:29:00 016 23:59:59 CLS Outpatient JAMES HONG [facility] RAD DOPPLER, THYROM EGALY [id number] 09/24/2015 13:29:00 016 23:59:59 CLS Outpatient GILLIS DO, ANDREAS [facility] [id number] 04/10/2015 06:00:00 13:50:00 DIS Outpatient VICTOR MANUEL DPM, IRINA Q [facility] HALLUX VALGUS;HAMMERTOE S ALL RIGHT FOOT [id number] 04/02/2015 14:35:00 23:59:59 CLS Outpatient VICTOR MANUEL DPM, IRINA Q [facility] PREOP HALLUX VALGUS; HAMMERTO ES ALL RIGHT FOOT [id number] 03/24/2015 00:09:00 015 23:59:59 CLS Preadmit GILLIS DO, ANDREAS [facility] SEVERE IRON DEFICIENCY UNABLE TO TOLORATE ORAL IRO [id number] 01/01/2015 13:27:00 015 00:01:00 DIS Outpatient GILLIS DO, ANDREAS [facility] SEVERE IRON DEFICIENCY UNABLE TO TOLORATE ORAL IRO [id number] 12/19/2014 13:06:00 015 23:59:59 CLS Outpatient GILLIS DO, ANDREAS [facility] RAD SCREENING [id number] 12/19/2014 12:58:00 015 23:59:59 CLS Outpatient KATHLEEN CAMPBELL DC [facility] RAD LBP [id number] 09/19/2014 09:06:00 015 23:59:59 CLS Outpatient DIANE NAYLOR [facility] QUICK [id number] 12/26/2013 10:49:00 014 00:01:00 DIS Outpatient GILLIS DO, ANDREAS [facility] SURG RCR SEVERE IRON DEFICIENCY [id number] 06/22/2013 09:13:00 013 23:59:59 CLS Outpatient GILLIS DO, ANDREAS [facility] RAD ROUTINE [id number] 03/05/2013 15:25:00 013 16:20:00 DIS Outpatient GILLIS DO, ANDREAS [facility] SDC SEVERE IRON DEFFICIENCY UNABLE TO TOLERATE ORAL IR [id number] 12/02/2012 13:18:00 013 17:23:00 DIS Emergency ALESHIA LAMAR, LISA Luna [facility] ER FELL TODAY AT HOME; ROHINI K PAIN [id number] 12/14/2019 14:00:00 P EN Preadmit ALEXX ACOSTA MD [facility] ENDO SCREENING/DYPSHAGIA/SORE THR OAT/HOARSE [id number] 09/26/2019 10:11:00 Document Registration [id number] 09/20/2019 21:19:00 Document Registration [id number] 12/15/2015 00:00:00 Document Registration [id number] 07/09/2014 13:54:00 Document Registration [id number] 07/09/2014 13:54:00 Document Registration [id number] 03/13/2014 00:00:00 Document Registration [id number] 04/13/2012 05:32:00 Document Registration [id number] 04/12/2012 15:13:00 Document Registration [id number] 12/28/2011 13:42:00 Document Registration [id number] 08/17/2011 11:36:00 Document Registration [id number] 08/10/2011 00:40:00 Document Registration [id number] 04/28/2011 22:38:00 Document Registration [id number] 04/13/2010 13:21:00 Document Registration [id number] 04/02/2009 09:25:00 Document Registration
[2019-12-14] MEDS ORDERED: LIDOCAINE JELLY 2% 6 ML SYRINGE ONE (09:06)
[2019-12-14] MEDS ORDERED: MIDAZOLAM 5 MG/5 ML (VERSED) VIAL ONE ×2 (09:06→09:07)
[2019-12-14] MEDS ORDERED: fentaNYL INJECTION 100 MCG/2 ML AMP ONE (09:07)
--- NOTE | 2019-12-14 09:11 | Conscious Sedation/ASA ---
Conscious Sedation Pre-Proced Time 09:00 ASA Score 2 For ASA 3 and 4: Consider anesthesia and medical clearance. Also, for patients with a history of failed moderate sedation consider anesthesia. Airway Lungs Heart ASA score ASA 1: a normal healthy patient ASA 2: a patient with a mild systemic disease (mid diabetes, controlled hypertension, obesity ASA 3: a patient with a severe systemic disease that limits activity (angina, COPD, prior Myocardial infarction) ASA 4: a patient with an incapacitating disease that is a constant threat to life (CHF, renal failure) ASA 5: a moribund patient not expected to survive 24 hrs. (ruptured aneurysm) ASA 6: a declared brain- patient whose organs are being harvested. For emergent operations, add the letter E after the classification Mallampati Classification Grade 2 Sedation Plan Analgesia, Amnesia, Plan communicated to team members, Discussed options with patient/fam, Discussed risks with patient/fam The patient is an appropriate candidate to undergo the planned procedure, sedation, and anesthesia. The patient immediately re-assessed prior to indication. ALEXX ACOSTA MD Dec 14, 2019 09:11
--- NOTE | 2019-12-14 09:12 | Progress Note-Pre Operative ---
Pre-Operative Progress Note H&P Reviewed The H&P was reviewed, patient examined and no changes noted. Date Seen by Provider: Dec 14, 2019 Time Seen by Provider: 09:00 Date H&P Reviewed: Dec 14, 2019 Time H&P Reviewed: 09:00 Pre-Operative Diagnosis: GERD, screening o ALEXX ACOSTA MD Dec 14, 2019 09:12
[2019-12-14] MEDS ORDERED: PANT40TA2 PO (09:14)
[2019-12-14] MEDS ORDERED: morphine INJ 10 MG/ML 1ML (SYR OR VIAL) IVP PRN ×2 (09:15)
[2019-12-14] MEDS ORDERED: ACETAMINOPHEN 325 MG TABLET PO PRN (09:15)
[2019-12-14] MEDS ORDERED: ONDANSETRON 4 MG/2 ML (SDV) Z0FRAN IVP PRN (09:15)
--- NOTE | 2019-12-14 09:15 | Discharge Inst-Surgical ---
D/C Lap Instructions-KIDStacia New, Converted, or Re-Newed RX: RX on Chart Follow Up Activity as tolerated High Fiber Diet 25g or more per day Avoid Alcohol, Caffeine, Spicy Chaplin and Acid foods. Drink 64 fluid oz or more of fluids per day. Symptoms to Report: Fever over 101 degree F, Nausea/Vomiting If any problems/questions: Contact your physician or go to Emergency Room ALEXX ACOSTA MD Dec 14, 2019 09:15
[2019-12-14] MEDS: MIDAZOLAM 5 MG/5 ML (VERSED) VIAL IV PRN ×4 (09:28→09:45)
--- NOTE | 2019-12-14 10:03 | Progress Note-Post Operative ---
Post-Operative Progess Note Surgeon (s)/Library Media Specialist (s) Surgeon ALEXX ACOSTA MD Library Media Specialist: none Pre-Operative Diagnosis GERD, screening colo Post-Operative Diagnosis reflux esophagitis(stage 2), small-moderate HH(3cm), normal gastric pouch, normal gastro-jejunal anastomosis. mild chronic stage 2 ext and int hemorrhoids. Procedure & Operative Findings Date of Procedure 12/14/19 Procedure Performed/Findings EGD with bx. Colonoscopy. Anesthesia Type cs Estimated Blood Loss Estimated blood loss (mL): minimal Specimens/Packing Specimens Removed ge jxn, antrum ALEXX ACOSTA MD Dec 14, 2019 10:03
--- NOTE | 2019-12-14 14:22 | OPERATIVE REPORT ---
DATE OF SERVICE: 12/14/2019 ATTENDING PRIMARY CARE PHYSICIAN: Dr. Vic Kaye. PREOPERATIVE DIAGNOSES: Gastroesophageal reflux disease, screening colonoscopy. POSTOPERATIVE DIAGNOSES: Reflux esophagitis stage II, small to moderate size hiatal hernia approximately 3 cm in size. Normal gastric pouch, normal gastrojejunal anastomosis. Chronic stage I external and internal hemorrhoids. Remainder of the rectum and colon were normal. PROCEDURES PERFORMED: EGD with biopsy and colonoscopy. SURGEON: Alexx Acosta MD. ANESTHESIA: Conscious sedation. ESTIMATED BLOOD LOSS: Minimal. FINDINGS: Same as postoperative diagnoses. DISPOSITION: The patient tolerated the procedure well. INDICATIONS: The patient is a 54-year-old female, who is known to us. She reports that she has had some issues with reflux with epigastric burning sensation and also does have occasional episodes of dysphagia. She is status post Amalia-en-Y gastric bypass in 1999. She also is in need of a screening colonoscopy. She states that her last colonoscopy was greater than 10 years ago and believes this to be normal. She does not report any family history of colon cancer. DESCRIPTION OF PROCEDURE: The patient was brought to the endoscopy suite and laid in the left lateral decubitus position. After adequate IV pain and sedative medications and conscious sedation anesthesia, the mouthpiece was applied. The endoscope was placed in the mouth, visualizing the pharynx and hypopharyngeal region. Vocal cords, epiglottis and vallecula were identified and appeared to be normal. Endoscope was then gently intubated and esophageal opening and esophagus insufflated. The endoscope was then advanced to the first, second and third portion of the esophagus. At the level of the GE junction, a reflux esophagitis stage II identified. No ulcers or strictures identified in this region. A biopsy was taken with forceps with visualization of good hemostasis. The endoscope was then advanced into the gastric pouch, where mild gastritis was noted. The endoscope was then retroflexed visualizing a small to moderate size hiatal hernia approximately 3 cm in size. The gastrojejunal anastomosis as well as the efferent and afferent limbs appeared normal with no ulcerations as well as no marginal ulcers. A biopsy was taken of the gastric pouch to rule out H. pylori with visualization of a good hemostasis. The endoscope was then slowly withdrawn while taking a second look and suctioning of residual air with no additional findings. Under the same anesthesia, we then proceeded with the colonoscopy portion of the procedure. A digital rectal examination was performed, which revealed mild chronic stage I external and internal hemorrhoids, not actively edematous or inflamed and with no bleeding. Normal sphincter tone was felt and there were no palpable masses. The endoscope was then intubated and the anus and rectum were gently insufflated. The endoscope was then advanced to the valves of Canales of the rectum with no polyps or any neoplasms identified. Through the sigmoid colon, no diverticulosis was identified. The endoscope was then advanced to the remainder of the descending, transverse and ascending colon to the cecum. These segments were normal. There were no polyps or any neoplasms identified throughout the colon or rectum. The endoscope was then slowly withdrawn while taking a second look and suctioning of residual air with no additional findings. The patient tolerated the procedure well. We will recommend the necessary lifestyle and diet accommodation including small and more frequent meals, avoidance of eating at night as well as head elevation while lying supine. We will also recommend avoidance of caffeinated beverages, spicy, greasy and acidic foods. We will also recommend a high fiber diet with 25 grams of fiber daily as well as significant amounts of water to promote soft stools on a daily basis. She does not have a family history of colon cancer and she may wait 10 years for her next colonoscopy if she is asymptomatic. Job ID: [id number] DocumentID: [id number] Dictated Date: 12/14/2019 09:59:33 Painter Barrel Date: 12/14/2019 14:21:29 Dictated By: ALEXX ACOSTA MD
== END 2019-12-14 10:45 | disposition home or self-care (01) ==
LOC: ENDO 08:23
PROVIDERS: ATTEND Surgery
DX: Z12.11 Encounter for screening for malignant neoplasm of colon (principal); K29.50 Unspecified chronic gastritis without bleeding; K21.0 Gastro-esophageal reflux disease with esophagitis; K44.9 Diaphragmatic hernia without obstruction or gangrene; K64.1 Second degree hemorrhoids; D64.9 Anemia, unspecified; E03.9 Hypothyroidism, unspecified; G90.1 Familial dysautonomia [Riley-Day]; G25.81 Restless legs syndrome; E66.01 Morbid (severe) obesity due to excess calories; Z68.25 Body mass index [BMI] 25.0-25.9, adult; Z79.899 Other long term (current) drug therapy; Z88.0 Allergy status to penicillin; Z88.5 Allergy status to narcotic agent; Z90.49 Acquired absence of other specified parts of digestive tract; Z98.84 Bariatric surgery status; Z80.0 Family history of malignant neoplasm of digestive organs; Z80.3 Family history of malignant neoplasm of breast; Z82.49 Family history of ischemic heart disease and other diseases of the circulatory system
CPT/HCPCS: 88305

== ENCOUNTER 2020-01-08 05:37 | Outpatient (RCR) | payer BC ==
[~2020-01-08] VITALS: Ht 165 cm; Wt 71.0 kg
[~2020-01-08 05:37] MED LIST changes: +PANT40TA2 PO
[2020-01-08 09:03] VITALS: BP 120/75
[2020-01-08 09:38] LABS: BASOPHILS % (AUTO) 0 % (0-10); EOSINOPHILS # (AUTO) 0.2 10^3/uL (0.0-0.3); EOSINOPHILS % (AUTO) 2 % (0-10); HEMATOCRIT 39 % (35-52); HEMOGLOBIN 13.1 G/DL (11.5-16.0); LYMPHOCYTES # (AUTO) 1.5 X 10^3 (1.0-4.0); LYMPHOCYTES % (AUTO) 23 % (12-44); MEAN CORPUSCULAR HEMOGLOBIN 29 PG (25-34); MEAN CORPUSCULAR HGB CONC 33 G/DL (32-36); MEAN CORPUSCULAR VOLUME 88 FL (80-99); MEAN PLATELET VOLUME 11.6 FL (7.4-10.4); MONOCYTES # (AUTO) 0.4 X 10^3 (0.0-1.0); MONOCYTES % (AUTO) 7 % (0-12); NEUTROPHILS # (AUTO) 4.3 X 10^3 (1.8-7.8); NEUTROPHILS % (AUTO) 68 % (42-75); PLATELET COUNT 150 10^3/uL (130-400); RED CELL DISTRIBUTION WIDTH 14.4 % (10.0-14.5); WHITE BLOOD COUNT 6.4 10^3/uL (4.3-11.0)
== END 2020-01-08 16:00 | disposition home or self-care (01) ==
LOC: PREOP 05:37
PROVIDERS: ATTEND Otolaryngology Otolaryngology/Facial Plastic Surgery
DX: Z01.812 Encounter for preprocedural laboratory examination (principal); Z11.2 Encounter for screening for other bacterial diseases; Z20.828 Contact with and (suspected) exposure to other viral communicable diseases; J38.3 Other diseases of vocal cords
CPT/HCPCS: 85025; 87081; U0002; 36415; 87635

== ENCOUNTER 2020-01-11 06:34 | Day surgery (SDC) | payer BC ==
[2020-01-11] VITALS (9 sets, daily range): BP systolic 103–169; BP diastolic 64–78
[~2020-01-11] VITALS: Ht 165 cm; Wt 71.0 kg
[2020-01-11] MEDS ORDERED: LACTATED RINGERS 1,000 ML IV PRN (06:37)
--- NOTE | 2020-01-11 07:01 | Progress Note-Pre Operative ---
Pre-Operative Progress Note H&P Reviewed The H&P was reviewed, patient examined and no changes noted. Date Seen by Provider: Jan 11, 2020 Time Seen by Provider: 07:00 Date H&P Reviewed: Jan 11, 2020 Time H&P Reviewed: 07:00 Pre-Operative Diagnosis: Bilateral Vocal Cord Lesions YAO MAXWELL MD Jan 11, 2020 07:01
[2020-01-11] MEDS ORDERED: ONDANSETRON 4 MG/2 ML (SDV) Z0FRAN ONE (08:05)
[2020-01-11] MEDS ORDERED: fentaNYL INJECTION 100 MCG/2 ML AMP ONE (08:05)
[2020-01-11] MEDS ORDERED: LACTATED RINGERS 1,000 ML IV ONE (08:05)
[2020-01-11] MEDS ORDERED: MIDAZOLAM 2 MG/2 ML (VERSED) VIAL ONE (08:05)
[2020-01-11] MEDS ORDERED: proPOfol 200 MG/20 ML (DIPRIVAN) VIAL IV ONE (08:05)
[2020-01-11] MEDS ORDERED: LIDOCAINE PF 2% 5 ML (XYLOCAINE) VIAL ONE (08:05)
[2020-01-11] MEDS ORDERED: SEVOFLURANE (ULTANE) 15 ML INHAL SOLN ONE ×2 (08:07→08:48)
[2020-01-11] MEDS ORDERED: DEXAMETHASONE 10 MG/ML (DECADRON) 1 ML VIAL ONE (08:07)
[2020-01-11] MEDS ORDERED: LIDOCAINE/EPI 1%-1:100,000 (XYLOCAINE) 20ML ONE (08:12)
[2020-01-11] MEDS ORDERED: MEPERIDINE (DEMEROL) INJ 50 MG/ML IVP ONE (08:45)
[2020-01-11] MEDS ORDERED: morphine INJ 10 MG/ML 1ML (SYR OR VIAL) IVP ONE (08:45)
[2020-01-11] MEDS ORDERED: ONDANSETRON 4 MG/2 ML (SDV) Z0FRAN IVP PRN (08:45)
[2020-01-11] MEDS ORDERED: ACETAMINOPHEN 325 MG TABLET PO PRN (09:00)
[2020-01-11] MEDS ORDERED: oxyCODONE/APAP 5/325MG (PERCOCET 5) TABLET PO PRN (09:00)
[2020-01-11] MEDS ORDERED: PROMETHAZINE INJ 25 MG/ML (PHENERGAN) AMP IV PRN (09:00)
--- NOTE | 2020-01-11 09:00 | Progress Note-Post Operative ---
Post-Operative Progess Note Surgeon (s)/Home Child Care Provider (s) Surgeon YAO MAXWELL MD Home Child Care Provider n/a Pre-Operative Diagnosis Bilateral Vocal Cord Lesions Post-Operative Diagnosis same Post-Op Procedure Note Date of Procedure: Jan 11, 2020 Name of Procedure Performed: Dreict Laryngoscopy with Removal of Bialteral Vocal Cord Lesions Description & Findings Description and Findings: n/a Anesthesia Type get Estimated Blood Loss minimal Packing none. Specimen(s) collected/removed bilateral vocal cord lesions YAO MAXWELL MD Jan 11, 2020 09:00
[2020-01-11] MEDS ORDERED: OXYC1TAB87 PO (09:49)
--- NOTE | 2020-01-11 10:37 | Anesthesia-General Post-Op ---
General Patient Condition Mental Status/LOC: Same as Preop Cardiovascular: Satisfactory Nausea/Vomiting: Absent Respiratory: Satisfactory Pain: Controlled Complications: Absent Post Op Complications Complications None Follow Up Care/Instructions Patient Instructions None needed. Anesthesia/Patient Condition Patient Condition Patient is doing well, no complaints, stable vital signs, no apparent adverse anesthesia problems. No complications reported per nursing. THERESE ARCEO CRNA Jan 11, 2020 10:37
== END 2020-01-11 10:50 | disposition home or self-care (01) ==
LOC: SDC 06:34
PROVIDERS: ATTEND Otolaryngology Otolaryngology/Facial Plastic Surgery
DX: J38.3 Other diseases of vocal cords (principal); Q89.9 Congenital malformation, unspecified; F32.9 Major depressive disorder, single episode, unspecified; E03.9 Hypothyroidism, unspecified; Z79.899 Other long term (current) drug therapy; Z88.0 Allergy status to penicillin; Z88.5 Allergy status to narcotic agent
CPT/HCPCS: 88305

== ENCOUNTER → 2020-03-21 | Outpatient (CLI) | payer BC ==
--- NOTE | 2020-03-24 10:03 | Diagnostic Imaging Report ---
EXAMINATION: Bilateral screening mammogram with CAD. COMPARISON: This study is compared to the prior exams of 12/14/2018, 05/03/2017, and 12/19/2014. PERSONAL HISTORY: At this time, there are no current complaints. FINDINGS: The fibroglandular tissue in both breasts is heterogeneously dense. This does limit the sensitivity of this exam. There is a small group of microcalcifications deep in the midportion of the right breast. These calcifications were present on the prior exams and do not seem to have changed significantly. The overall appearance of the breasts is otherwise stable. There is no primary or secondary sign of malignancy noted. IMPRESSION: There is no evidence for malignancy. ACR BI-RADS Category 1: Negative. Result letter will be mailed to the patient. Note: At least 10% of breast cancer is not imaged by mammography. Dictated by: Dictated on workstation # [id number]
== END ==
LOC: RAD 07:45
PROVIDERS: ATTEND Nurse Practitioner Family
DX: Z12.31 Encounter for screening mammogram for malignant neoplasm of breast (principal); Z20.828 Contact with and (suspected) exposure to other viral communicable diseases
CPT/HCPCS: 77063; 77067

== ENCOUNTER → 2020-04-07 | Outpatient (CLI) | payer BC ==
[~2020-04-07] VITALS: Ht 157.5 cm; Wt 67.7 kg
[~2020-04-07] MED LIST changes: +GADOBUTROL 7.5 MMOL/7.5 ML (GADAVIST) VIAL IV ONE; +IOHEXOL 300 MG/ML 50 ML (OMNIPAQUE 300) VIAL IV ONE
--- NOTE | 2020-04-07 14:54 | Diagnostic Imaging Report ---
INDICATION: Right shoulder pain. The patient was brought to the procedure room, placed on the table in the supine position. The skin over the right shoulder was prepped and draped in the usual sterile fashion. A small amount of 1% lidocaine was utilized for local anesthesia. A 22-gauge needle was advanced into the right shoulder at the rotator interval. A 15 mL solution of iodinated contrast, normal saline and gadolinium was injected under fluoroscopic observation. The needle was drawn, hemostasis was obtained. 13 seconds of fluoroscopic time was utilized. The patient tolerated the procedure well and was sent to MRI in satisfactory condition. IMPRESSION: Successful right shoulder injection of gadolinium contrast solution, using fluoroscopy. Dictated by: Dictated on workstation # [id number]
--- NOTE | 2020-04-07 16:00 | Diagnostic Imaging Report ---
EXAMINATION: Magnetic resonance imaging of the right shoulder with intra-articular contrast. DATE: April 07, 2020. COMPARISON: Right shoulder arthrogram April 07, 2020. HISTORY: 54-year-old female, right shoulder pain and decreased range of motion. TECHNIQUE: Magnetic Resonance Imaging sequences were performed of the shoulder following the intra-articular administration of contrast. FINDINGS: ROTATOR CUFF, LIGAMENTS, TENDONS, AND MUSCLES: The patient is status post rotator cuff tendon repair. There is marked thinning of the supraspinatus tendon with approximately 50-75% thinning of the supraspinatus tendon near its humeral attachment site. There is no full-thickness fluid-filled tendon gap in the supraspinatus tendon. There is contrast extension into the subacromial/subdeltoid bursa. The infraspinatus and teres minor tendons are intact. The subscapularis tendon is intact. There is normal rotator cuff muscle bulk and signal. LONG HEAD OF BICEPS: The biceps labral attachment and long head of the biceps tendon is intact. The long head of the biceps tendon is normally positioned within the bicipital groove. GLENOHUMERAL JOINT: The humeral head is well positioned relative to the glenoid. The labrum is intact. There is no identified paralabral cyst. The articular cartilage is grossly intact. There is no intra-articular body or prominent synovitis. ACROMIOCLAVICULAR JOINT: The acromioclavicular joint is normally aligned. The coracoclavicular and coracoacromial ligaments are intact. There are mild acromioclavicular degenerative changes without large undersurface osteophyte. BONE: There is no os acromiale. The bone marrow signal is within normal limits. Specifically, negative for fracture, osteomyelitis, osteonecrosis, or marrow replacing process. BURSAE AND SOFT TISSUES: There is contrast in the subacromial/subdeltoid bursa. IMPRESSION: 1. Status post rotator cuff tendon repair involving the supraspinatus without evidence of failure of the repair. There is prominent thinning of the supraspinatus tendon near its humeral attachment site although without fluid-filled gap in the tendon to specifically suggest failure of the repair. The contrast extension into the subacromial/subdeltoid bursa may relate to a small full-thickness perforation of the tendon and/or loss of the normal water tight seal which may occur following surgery. 2. The additional rotator cuff tendons are intact. Unremarkable intramuscular signal and muscle bulk. 3. Intact labrum and unremarkable additional glenohumeral joint evaluation. 4. Mild acromioclavicular degenerative changes without undersurface osteophyte. 5. No acute fracture, bone contusion, or evidence of osteonecrosis. Dictated by: Dictated on workstation # [id number]
== END ==
LOC: RAD 14:15
PROVIDERS: ATTEND Orthopaedic Surgery
DX: S43.431A Superior glenoid labrum lesion of right shoulder, initial encounter (principal); M75.111 Incomplete rotator cuff tear or rupture of right shoulder, not specified as traumatic; M19.011 Primary osteoarthritis, right shoulder; X58.XXXA Exposure to other specified factors, initial encounter; Z20.828 Contact with and (suspected) exposure to other viral communicable diseases
CPT/HCPCS: 23350; 73040; 73219

== ENCOUNTER → 2020-08-21 | Outpatient (CLI) | payer BC ==
[~2020-08-21] MED LIST changes: -GADOBUTROL 7.5 MMOL/7.5 ML (GADAVIST) VIAL IV ONE; -IOHEXOL 300 MG/ML 50 ML (OMNIPAQUE 300) VIAL IV ONE
--- NOTE | 2020-08-21 16:55 | Diagnostic Imaging Report ---
INDICATION: Acquired deformity of the left hand, bruising. COMPARISON: None available. TECHNIQUE: Three radiographs of the left hand dated August 21, 2020. FINDINGS: No acute fracture or dislocation. No destructive osseous process. Gedo-bm-zoygvvix scattered degenerative changes are present, greatest involving the 1st CMC joint where there is significant joint space narrowing, sclerosis of the articular surfaces and osteophyte formation. Carpal alignment is well maintained. No suspicious radiopaque foreign body. IMPRESSION: No acute osseous abnormality with scattered degenerative changes, greatest involving the 1st CMC joint. Dictated by: Dictated on workstation # [id number]
== END ==
LOC: RAD 16:05
PROVIDERS: ATTEND Nurse Practitioner Family
DX: M18.12 Unilateral primary osteoarthritis of first carpometacarpal joint, left hand (principal); M21.942 Unspecified acquired deformity of hand, left hand
CPT/HCPCS: 73130

== ENCOUNTER 2020-12-22 07:53 | Outpatient (CLI) | payer BC ==
[~2020-12-22] VITALS: Ht 157.5 cm; Wt 67.7 kg
[2020-12-22] MEDS ORDERED: COSYNTROPIN 0.25 MG/ML (CORTROSYN) VIAL IV ONE (08:45)
[2020-12-22 11:05] VITALS: BP 107/68
== END 2020-12-22 11:05 | disposition home or self-care (01) ==
LOC: LAB 07:53 → SDC 11:05
PROVIDERS: ATTEND Internal Medicine
DX: R94.7 Abnormal results of other endocrine function studies (principal)
CPT/HCPCS: 36415; 82533; 96372

== ENCOUNTER → 2021-01-01 | Outpatient (CLI) | payer BC ==
--- NOTE | 2021-01-01 16:38 | Diagnostic Imaging Report ---
INDICATION: Low back pain COMPARISON: 12/02/2012 FINDINGS: Five views of the lumbar column demonstrate significant progression of the patient's lumbar scoliosis and degenerative disc disease. There is no traumatic malalignment or fracture. No obvious osseous lesion is seen. Lumbosacral junction is intact. SI joints are symmetric. IMPRESSION: Severe lumbar scoliosis with degenerative disc disease. Dictated by: Dictated on workstation # [id number]
== END ==
LOC: RAD 12:15
PROVIDERS: ATTEND Nurse Practitioner Family
DX: M51.36 Other intervertebral disc degeneration, lumbar region (principal); M41.86 Other forms of scoliosis, lumbar region
CPT/HCPCS: 72110

== ENCOUNTER → 2021-01-01 | Outpatient (CLI) | payer BC | LOC: CANPRECLI → RAD 11:51 | DX: Z53.9 Procedure and treatment not carried out, unspecified reason (principal) ==

== ENCOUNTER → 2021-03-23 | Outpatient (CLI) | payer BC ==
--- NOTE | 2021-03-23 09:55 | Diagnostic Imaging Report ---
Indication: Routine screening. Comparison is made prior mammogram from 03/21/2020 and 12/14/2018. 2-D and 3-D bilateral screening mammography was performed with CAD. Both breasts are heterogeneously dense, limiting the sensitivity of mammography. Calcifications in both breasts appears stable. No mass or malignant-appearing microcalcifications are seen. Axillae are unremarkable. IMPRESSION: BI-RADS Category 2 No mammographic features suspicious for malignancy are identified. ACR BI-RADS Category 2: Benign findings. Result letter will be mailed to the patient. Note: At least 10% of breast cancer is not imaged by mammography. Dictated by: Dictated on workstation # [id number]
== END ==
LOC: RAD 07:30
PROVIDERS: ATTEND Nurse Practitioner Family
DX: Z12.31 Encounter for screening mammogram for malignant neoplasm of breast (principal)
CPT/HCPCS: 77063; 77067

== ENCOUNTER → 2021-07-03 | Outpatient (CLI) | payer BC ==
[~2021-07-03] MED LIST changes: +CYCL10TA25 PO; -CYCL10TA9 PO
[2021-07-03] MEDS: CATHETER FLUSH 10 ML SYR IV PRN ×2 (07:06→07:08)
[2021-07-03 08:00] VITALS: BP 118/76
--- NOTE | 2021-07-03 10:40 | Cardiology Stress Test Report ---
Stress Test Report Date of Procedure/Referring: Date of Procedure: Jul 03, 2021 PCP Charmaine Kaye,Dnp Admitting Physician Yamilka Kaye DO Indications: CP Baseline Vital Signs Vital Signs Date Time Temp Pulse Resp B/P (MAP) Pulse Ox O2 Delivery O2 Flow Rate FiO2 07/03/21 08:00 70 118/76 (90) Summary: Patient receive a resting and stress dose of Myoview, images were acquired and reviewed in the short axis view, horizontal long axis view and vertical long axis view. TID: 1.04 SSS: 3 SDS: 3 EF: 55 1. Breast attenuation with mild decrease uptake at the base of the anterior wall and anteroseptum with subtle reversibility most probably due to breast attenuation. No significant ischemia was noted. 2. Normal left ventricular size, EF 55% Copy Copies To 1: YAMILKA KAYE BASHAR J MD Jul 03, 2021 10:40
== END ==
LOC: CARD 07:00
PROVIDERS: ATTEND Nurse Practitioner Family
DX: R07.89 Other chest pain (principal)
CPT/HCPCS: 78452; 93017; A9502

== ENCOUNTER → 2022-01-15 | Outpatient (CLI) | payer BC ==
[~2022-01-15] MED LIST changes: +LACTATED RINGERS 2,000 ML IV SCH; -TRIA1CAP4 PO; +TRIA1CAP84 PO
[2022-01-15 12:40] VITALS: BP 122/67
== END ==
LOC: SDC 12:34
PROVIDERS: ATTEND Internal Medicine
DX: E86.0 Dehydration (principal)
CPT/HCPCS: 96360; 96361

== ENCOUNTER → 2022-05-25 | Outpatient (CLI) | payer BC ==
[~2022-05-25] MED LIST changes: -LACTATED RINGERS 2,000 ML IV SCH
--- NOTE | 2022-05-26 08:57 | Diagnostic Imaging Report ---
EXAMINATION: 3D bilateral screening mammogram with CAD. INDICATION: Screening. COMPARISON: This study was compared to the prior exams of 03/23/2021, 03/21/2020, and 12/14/2018. PERSONAL HISTORY: At this time, there are no current complaints. FINDINGS: The fibroglandular tissue in both breasts is heterogeneously dense. This does limit the sensitivity of this exam. Overall, there does not appear to have been any significant change when compared to the prior study. No primary or secondary sign of malignancy is noted. IMPRESSION: There is no radiographic evidence for malignancy. ACR BI-RADS Category 1: Negative. Result letter will be mailed to the patient. Note: At least 10% of breast cancer is not imaged by mammography. Dictated by: Dictated on workstation # [id number]
== END ==
LOC: RAD 07:11
PROVIDERS: ATTEND Internal Medicine
DX: Z12.31 Encounter for screening mammogram for malignant neoplasm of breast (principal)
CPT/HCPCS: 77063; 77067

== ENCOUNTER → 2022-06-11 | Outpatient (CLI) | payer BC ==
--- NOTE | 2022-06-11 12:04 | Diagnostic Imaging Report ---
INDICATION: Right-sided lactorrhea. Sonographic interrogation of the retroareolar right breast was performed. There are some mildly prominent ducts in the retroareolar region but no intraductal mass is seen. No sonographic normality is detected. Right axilla was evaluated due to some fullness reported by the patient. No discrete mass is detected. IMPRESSION: No sonographic abnormality is detected. ACR BI-RADS Category 1: Negative. Result letter will be mailed to the patient. Note: At least 10% of breast cancer is not imaged by mammography. BI-RADS Category 1 Dictated by: Dictated on workstation # [id number]
== END ==
LOC: RAD 09:53
PROVIDERS: ATTEND Nurse Practitioner Family
DX: O92.6 Galactorrhea (principal)

== ENCOUNTER → 2022-07-08 | Outpatient (CLI) | payer BC ==
--- NOTE | 2022-07-08 10:15 | Diagnostic Imaging Report ---
INDICATION: Lump between 1st and 2nd digits AP, oblique, and lateral views of the right hand are obtained and compared to 09/19/2014. There is no acute fracture. There are fairly extensive degenerative changes throughout the DIP joints of the 2nd through 5th digits and moderate degenerative change of the PIP joints. There is prominent degenerative change of the 1st MCP joint with prominent osteophyte formation of the distal aspect of the 1st metacarpal. This may explain the above-mentioned palpable abnormality. There is no lytic or blastic lesion or acute fracture. IMPRESSION: Chronic changes of right hand as described above compatible with osteoarthritic change. No acute-appearing abnormality. Dictated by: Dictated on workstation # [id number]
--- NOTE | 2022-07-08 10:38 | Diagnostic Imaging Report ---
SCOLIOSIS STANDING 1 VIEW INDICATION: Scoliosis COMPARISON: Lumbar spine radiographs of 01/01/2021 TECHNIQUE: Standing AP view of the thoracolumbar spine FINDINGS: Severe rotatory dextroscoliosis of the lumbar spine measures approximately 45 degrees. The apex of the curvature is at L2. There are asymmetrically advanced degenerative changes along the left concave margin of the scoliotic curvature. The overall degree of spinal curvature is unchanged since prior lumbar spine radiographs. No vertebral body formation or segmentation anomaly. Surgical clips in the region of thyroid bed are noted. IMPRESSION: Marked rotatory dextroscoliosis of the lumbar spine. Dictated by: Dictated on workstation # [id number]
== END ==
LOC: RAD 08:43
PROVIDERS: ATTEND Nurse Practitioner Family
DX: M41.86 Other forms of scoliosis, lumbar region (principal); M19.041 Primary osteoarthritis, right hand; M95.4 Acquired deformity of chest and rib; M54.6 Pain in thoracic spine
CPT/HCPCS: 72081; 73130

== ENCOUNTER → 2022-11-30 | Outpatient (CLI) | payer BC ==
[~2022-11-30] MED LIST changes: -ORPH100T PO; +ORPH100T3 PO
--- NOTE | 2022-11-30 09:59 | Diagnostic Imaging Report ---
INDICATION: Postmenopausal state, pathologic fracture of the right femur. COMPARISON: 12/30/2008 FINDINGS: AP Spine L1-L4: [BMD (g/cm2): 1.063] [T-Score: -1.1] [Z-Score: -0.2] [BMD Previous: 1.061] [BMD % Change: 0.2] LT Hip Neck: [BMD (g/cm2): 0.677] [T-Score: -2.6] [Z-Score: -1.5] LT Hip Total: [BMD (g/cm2):0.686] [T-Score:-2.6] [Z-Score: -1.8] [BMD Previous: 0.834] [BMD % Change: -17.7*] RT Hip Neck: [BMD (g/cm2):0.699] [T-Score:-2.4] [Z-Score:-1.3] RT Hip Total: [BMD (g/cm2):0.671] [T-score:-2.7] [Z-Score:-1.9] [BMD Previous:0.828] [BMD % Change:-19.0*] *Indicates significant change from prior examination based on 95% confidence level. World Health Organization criteria for BMD interpretation classify patients as Normal (T-score at or above -1.0), Osteopenic (T-score between -1.0 and -2.5) or Osteoporotic (T-score at or below -2.5). LIMITATIONS AND MODIFICATION: None. IMPRESSION: 1. Osteoporosis. 2. Bone mineral density has decreased by a statistically significant amount, as detailed above. 3. See below National Osteoporosis Foundation guidelines on when to potentially initiate pharmacologic therapy. Based on the National Osteoporosis Foundation Guidelines, pharmacologic treatment should be initiated in any of the following, unless clinical conditions suggest otherwise: * Any patient with prior fragility fracture of the hip or vertebrae. A spine fracture indicates 5X risk for subsequent spine fracture and 2X risk for subsequent hip fracture. * Osteoporosis (T-score <-2.5). * Postmenopausal women and men age 50 and older with low bone mass/osteopenia (T-score between -1.0 and -2.5) by DXA and 10-year major osteoporotic fracture greater than 20% or a 10-year probability of hip fracture greater than 3%. These fracture risks are supplied above in the FRAX score, if applicable. * Clinician judgement and/or patient preferences may indicate treatment for people with 10-year fracture probabilities above or below these levels. Dictated by: Dictated on workstation # [id number]
--- NOTE | 2022-11-30 10:34 | Diagnostic Imaging Report ---
PROCEDURE: MRI lumbar spine. TECHNIQUE: Multiplanar, multisequence MRI of the lumbar spine was performed without contrast. INDICATION: Chronic lower back pain. COMPARISON: None FINDINGS: For the purposes of this exam, last well-formed disc space is noted the L5-S1 level. Evaluation static alignment shows moderate dextro scoliotic deformity epicentered at the L2 level. No significant anterolisthesis or retrolisthesis seen. There is no evidence of jumped facets. Vertebral body heights are preserved. There is no acute fracture. Evaluation marrow signal demonstrates multilevel Modic type endplate changes. There is also moderate multilevel intervertebral disc height loss with multiple anterior and posterior disc bulging. Visualized portions of distal cord are unremarkable. Conus terminates approximately the L1 level. No abnormal intrathecal filling defects are seen. Pre and paravertebral soft tissue structures are unremarkable. Axial images demonstrate the following: T11-T12: There is small left paracentric posterior disc protrusion with probable focal annular tear. As a result, there is mild focal indentation the anterior thecal sac, but no other significant spinal canal or neural foraminal stenosis. T12-L1: There is broad-based posterior disc bulge with bilateral ligamentum flavum laxity and facet arthropathy. As a result, there is mild narrowing of the right neural foramen and spinal canal. L1-L2: There is asymmetric left posterior and lateral disc osteophyte complex formation and bilateral facet arthropathy. As a result, there is asymmetric stenosis of the left lateral recess and moderate stenosis of the left neural foramen. Right neural foramen is unremarkable. There is also mild narrowing of spinal canal. L2-L3: There is broad-based posterior disc bulge with asymmetric endplate osteophyte formation laterally to the left. There is also bilateral ligamentum flavum laxity and facet arthropathy. As a result, there is mild narrowing of the spinal canal and [id number]-rd-[id number] stenosis of the left neural foramen. Right neural foramen is unremarkable. L3-L4: There is broad-based posterior disc osteophyte complex formation. There is also bilateral ligamentum flavum laxity and facet arthropathy. As a result, there is moderate stenosis of the spinal canal and moderate severe stenosis of left neural foramen. There is mild narrowing on the right. L4-L5: There is broad-based posterior disc bulge, eccentric to the right. There is also probable midline posterior annular tear and bilateral ligamentum flavum laxity and facet arthropathy. As a result, there is moderate stenosis of the right neural foramen and xrxv-ok-effbffmk narrowing of the spinal canal. There is also mild narrowing of left neural foramen. L5-S1: There is broad-based posterior disc bulge with associated endplate osteophyte formations. As a result, there is moderate bilateral neural foramen and mild narrowing of spinal canal. IMPRESSION: 1. Moderate dextroscoliotic deformity with moderate to advanced multilevel degenerative changes of the lumbar spine as described above. 2. No acute fracture or dislocation. Dictated by: Dictated on workstation # [id number]
--- NOTE | 2022-11-30 10:50 | Diagnostic Imaging Report ---
CLINICAL INDICATION: Patient has chronic C-spine pain with left-sided arm pain. Patient's history of C-spine surgery and 22. EXAM: MRI of the cervical spine without contrast. Sequences include sagittal T2, sagittal T1, sagittal T2 fat-sat, and axial T2. COMPARISON: CT scan of the cervical spine without contrast dated 09/20/2019. FINDINGS: There is no acute cervical spine fracture or dislocation. There is a small area of intraosseous fat versus intraosseous hemangioma involving the left posterior aspect of the T7 vertebra. There is intraosseous hemangioma involving the T3 vertebra. There are degenerative spurs involving the cervical spine and facet arthropathy. There is no significant paraspinal soft tissue abnormality. Limited visualization of the posterior fossa and cervical spine shows no significant abnormality. C1-C2: There are degenerative spurs involving the atlantoodontoid interval anteriorly. There is no significant central canal narrowing. C2-C3: Unremarkable. C3-C4: There is diffuse disk bulge with moderate loss of disk space height and bilateral uncinate spurs. There is mild bilateral facet arthropathy. There is moderate right neural foramen narrowing and mild left neural foramen narrowing. There is no significant central canal stenosis. C4-C5: There is a diffuse disk bulge with no significant central canal narrowing. There is no significant neural foramen narrowing. C5-C6: There is diffuse disk bulge with moderate loss of disk space height and bilateral uncinate spurs. There is mild facet arthropathy. There is mild left neural foramen narrowing and moderate to severe right neural foramen narrowing. There is no significant central canal narrowing. C6-C7: There is a diffuse disk bulge with mild loss of disk space height. There are small bilateral uncinate spurs. There is mild bilateral facet arthropathy. There is moderate to severe right neural foramen narrowing and moderate left neural foramen narrowing. There is no significant central canal stenosis. C7-T1: Unremarkable. IMPRESSION: There is multilevel cervical spine degenerative disk disease, as described above. Dictated by: Dictated on workstation # [id number]
== END ==
LOC: RAD 08:45
DX: M47.26 Other spondylosis with radiculopathy, lumbar region (principal); M41.86 Other forms of scoliosis, lumbar region; M51.16 Intervertebral disc disorders with radiculopathy, lumbar region; M48.061 Spinal stenosis, lumbar region without neurogenic claudication; M47.22 Other spondylosis with radiculopathy, cervical region; M50.11 Cervical disc disorder with radiculopathy, high cervical region; M48.02 Spinal stenosis, cervical region; M81.0 Age-related osteoporosis without current pathological fracture; Z78.0 Asymptomatic menopausal state; Z98.890 Other specified postprocedural states
CPT/HCPCS: 72141; 72148; 77080

== ENCOUNTER → 2023-05-17 | Outpatient (CLI) | payer BC ==
[~2023-05-17] MED LIST changes: +GADOTERATE 0.5 MMOL/ML (CLARISCAN) 15 ML VIAL IV ONE
--- NOTE | 2023-05-17 16:09 | Diagnostic Imaging Report ---
CLINICAL INDICATION: Patient is having headaches. Patient has history of thyroid cancer. Exam: MRI of the brain performed without and with 12 cc of Clariscan IV contrast. Sequences include axial DWI, ADC map, axial gradient echo, axial T2, axial FLAIR, axial T1, axial T1 post IV contrast, coronal T1 fat-sat post IV contrast, and sagittal T1 post IV contrast. Comparison: MRI of the brain with and without contrast dated 11/13/2019. Findings: There is no evidence of acute cerebral infarct, intracranial hemorrhage, or gross mass effect. There is no abnormal IV contrast enhancement. The brain parenchymal volume appears appropriate for patient's age. There are multiple focal areas of high T2 signal white matter changes seen throughout both cerebral hemispheres, likely related to chronic small vessel ischemic disease. There is normal huynh-white matter distinction. There is no significant midline shift or herniation. The visualized [place] vascular structures are unremarkable. The pituitary gland, sella, and suprasellar regions are unremarkable as visualized. There is no evidence of hydrocephalus. The basal cisterns are unremarkable. The skull, extracranial soft tissue, and orbits are unremarkable. The paranasal sinuses are unremarkable. Temporal bones show no significant abnormality. IMPRESSION: Unremarkable MRI of the brain for age. There is no abnormal IV contrast enhancement. Dictated by: Dictated on workstation # [id number]
== END ==
LOC: RAD 13:57
PROVIDERS: ATTEND Internal Medicine Hematology & Oncology
DX: R27.0 Ataxia, unspecified (principal)
CPT/HCPCS: 70553

== ENCOUNTER 2023-05-23 15:08 | Outpatient (RCR) | payer BC ==
[2023-05-02 14:26] LABS: BASOPHILS % (AUTO) 1 % (0-10); EOSINOPHILS # (AUTO) 0.1 10^3/uL (0.0-0.3); EOSINOPHILS % (AUTO) 3 % (0-10); HEMATOCRIT 41 % (35-52); HEMOGLOBIN 14.1 g/dL (11.5-16.0); LYMPHOCYTES # (AUTO) 1.7 10^3/uL (1.0-4.0); LYMPHOCYTES % (AUTO) 37 % (12-44); MEAN CORPUSCULAR HEMOGLOBIN 31 pg (25-34); MEAN CORPUSCULAR HGB CONC 34 g/dL (32-36); MEAN CORPUSCULAR VOLUME 90 fL (80-99); MONOCYTES # (AUTO) 0.3 10^3/uL (0.0-1.0); MONOCYTES % (AUTO) 7 % (0-12); NEUTROPHILS # (AUTO) 2.4 10^3/uL (1.8-7.8); NEUTROPHILS % (AUTO) 53 % (42-75); PLATELET COUNT 142 10^3/uL (130-400); WHITE BLOOD COUNT 4.6 10^3/uL (4.3-11.0)
[2023-05-02 14:44] LABS: ALBUMIN 4.3 GM/DL (3.2-4.5); BILIRUBIN,TOTAL 0.8 MG/DL (0.1-1.0); CALCIUM 8.6 MG/DL (8.5-10.1); CREATININE SERUM 0.76 MG/DL (0.60-1.30); POTASSIUM 3.8 MMOL/L (3.6-5.0); TOTAL PROTEIN 6.4 GM/DL (6.4-8.2)
[~2023-05-23 15:08] MED LIST changes: -GADOTERATE 0.5 MMOL/ML (CLARISCAN) 15 ML VIAL IV ONE
== END 2023-05-26 | disposition home or self-care (01) ==
LOC: ONC 15:08
PROVIDERS: ATTEND Internal Medicine Hematology & Oncology
DX: R51.9 Headache, unspecified (principal); Z85.850 Personal history of malignant neoplasm of thyroid
CPT/HCPCS: 80053; 84443; 85025; G0463; 99204; 99214

== ENCOUNTER → 2023-06-06 | Outpatient (CLI) | payer BC ==
--- NOTE | 2023-06-06 09:13 | Diagnostic Imaging Report ---
INDICATION: Routine screening. COMPARISON is made with prior mammograms 05/25/2022 and 03/23/2021. 2-D and 3-D bilateral screening mammography was performed with CAD. Both breasts are heterogeneously dense, limiting the sensitivity of mammography. The parenchymal pattern is stable. No mass or malignant-appearing microcalcifications are identified. There are benign calcifications noted bilaterally. Axillae are unremarkable. IMPRESSION: BI-RADS Category 2. No mammographic features suspicious for malignancy are identified. ACR BI-RADS Category 2: Benign findings. Result letter will be mailed to the patient. Note: At least 10% of breast cancer is not imaged by mammography. Dictated by: Dictated on workstation # [id number]
== END ==
LOC: RAD 08:00
PROVIDERS: ATTEND Nurse Practitioner Family
DX: Z12.31 Encounter for screening mammogram for malignant neoplasm of breast (principal)
CPT/HCPCS: 77063; 77067